=== PATIENT | male | born 1955 | race Caucasian/White ===

== ENCOUNTER 2024-12-18 21:01 | Observation (INO) ==
--- OUTSIDE RECORDS SUMMARY | 2024-12-18 21:07 | External Medical Summary | Summary of Care ---
Author Name Unknown Organization [facility] Address [address] [place] [address] Phone [phone] Care Team Providers Care Music Video Producer Name Role Phone Ran Mora MD Primary Care Provider Reason for Visit * Reason Comments Outpatient Testing Encounter Details Date Type Department Care Team (Late st Contact Info) Description 11/29/2024 8:00 AM EDT Laboratory Laboratory, [facility] [address] [place] [address] [facility] [address], [place] [id number] HTN, goal below 130/80 Allergies No known active allergiesdocumented as of this encounter (statuses as of 11/29/2024) Medications aspirin enteric coated 81 MG TBEC Take 1 Tablet by mouth in the morning. 9 Active Nitroglycerin 0.4 MG Sublingual Tablet Sublingual (Nitrostat)Indic ations:Angina pectoris (HCC) One tablet under tongue if needed for chest pain. May repeat 3 times. If chest pain continues, call [phone] Tab 11 1 Active Fluticasone Propionate 50 MCG/ACT Nasal Suspension Administer 1 [place] into nostril in the morning. Active Multivitamin Adult Extra C Oral Tablet Chewable Take by mouth . Acti ve Sildenafil Citrate 20 MG Oral Tablet (Revatio) 1-5 tabs no more than once in 24 hrs as needed for ED 60 Tablet 1 3 Active Famotidine 20 MG Oral Tablet (Pepcid) Take 1 Tablet by mouth in the morning and 1 Tablet before bedtime. Active Omeprazole 40 MG Oral Capsule Delayed Release (PriLOSEC)Indica tions:Gastroesop hageal reflux disease, unspecified whether esophagitis present TAKE ONE CAPSULE BY MOUTH EVERY DAY ONE HOUR BEFORE THE FIRST MEAL OF THE DAY 90 Capsule 3 09/06/2024 3:06 PM EST 4 03/05/20 25 Active amLODIPine Besylate 5 MG Oral Tablet (Norvasc)Indicat ions:HTN, goal below 140/90 TAKE 1 TABLET BY MOUTH EVERY DAY 90 Tablet 3 09/20/2024 7:12 AM EST 4 06/19/20 25 Active Rosuvastatin Calcium 40 MG Oral Tablet (Crestor)Indicat ions:HTN, goal below 130/80,Dyslipide susanna, goal LDL below 70 TAKE ONE TABLET BY MOUTH DAILY 90 Tablet 10/12/2024 7:12 AM EST 5 10/11/19 26 Active Lisinopril 40 MG Oral TabletIndication s:HTN, goal below 130/80 Take 1 Tablet by mouth in the morning. 90 Tablet 3 11/17/2024 1:24 PM EDT 5 Active Triamcinolone Acetonide 0.1 % External Cream (Aristocort)Leticia cations:Xerosis cutis,Contact dermatitis, unspecified contact dermatitis type, unspecified trigger Apply 2x daily to itchy/rash areas on legs when flaring- see printed regimen on checkout sheet 80 g 5 Active Ketoconazole 2 % External CreamIndications :Seborrheic dermatitis Apply 2x daily scalp and entire face until next derm appointment 60 g 2 5 Active hydroCHLOROthiaz christelle 25 MG Oral Tablet (Hydrodiuril)Ind ications:HTN, goal below 130/80 Take 0.5 Tablets by mouth in the morning. 5 Active Levothyroxine Sodium 100 MCG Oral Tablet (Levoxyl)Indicat ions:Hypothyroid ism due to acquired atrophy of thyroid TAKE 1 TABLET BY MOUTH DAILY AT LEAST 30 MINUTES PRIOR TO FIRST MEAL OF THE DAY OR OTHER MEDICATIONS 90 Tablet 3 5 11/29/19 26 Active documented as of this encounter (statuses as of 11/29/2024) Active Problems Problem Noted Date Diagnosed Date Dyslipidemia, goal LDL below 70 01/21/2022 Angina pectoris 01/21/2022 Gastroesophageal reflux disease 01/21/2022 Rotator cuff tear arthropathy of right shoulder 04/28/2019 Chronic right shoulder pain 04/28/2019 Hypomagnesemia 01/20/2019 Hypokalemia 01/20/2019 Stem cells transplant status 01/02/2019 Angioimmunoblastic lymphoma 12/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 History of lymphoma 01/19/2017 Chemotherapy management, encounter for 5 DLBCL (diffuse large B cell lymphoma) 07/20/2015 Cancer Staging:Clinical: Unsigned Pathologic:Stage II- Unsigned Hypothyroidism due to acquired atrophy of thyroi d 02/27/2015 Vitamin D deficiency 02/27/2015 Mild intermittent asthma, uncomplicated 10/17/19 14 Chronic ischemic heart disease 02/05/2009 S/P angioplasty with stent 02/02/2009 Sequela, post-stroke 05/01/2008 HTN, goal below 130/80 10/23/2005 documented as of this encounter (statuses as of 11/29/2024) Resolved Problems Problem Noted Date Diagnosed Date Resolved Date C. difficile diarrhea 01/19/20192021 Overview (07/10/2022): NOTED 01/19/19 HISTORICAL Antineoplastic chemotherapy induced pancytopenia 01/08/2019 07/17/2022 Dehydration 10/27/2018 07/10/2022 Overview (07/10/2022): NOTED 10/27/18 HISTORICAL RAFIQ (acute kidney injury) 10/27/2018 Overview (07/10/2022): NOTED 10/27/18 HISTORICAL Anxiety state 01/19/2017 08/05/2018 Hyperlipemia 12/22/2012 07/15/2013 Acute bronchitis, antibiotics not indicated 07/27/2009 01/16/2017 HYPOTHYROIDISM NOS 06/05/2009 5 EXAMINATION OF PARTICIPANT I N CLINICAL TRIAL-Genomics 02/02/2009 11/23/2009 Overview (11/23/2009): Renamed Per Clinical Trials Billing Project. Study Titile: Genomic Markers for Patients with Cardiovascular Disease Project #[id number] PI: Jennifer Huffman MD Please call [phone] with study related questions GENOMICS CARDIO RESEARCH OTHER*[id number] 02/02/2009 09/16/2016 Overview (11/23/2009): Renamed Per Clinical Trials Billing Project. Study Titile: Genomic Markers for Patients with Cardiovascular Disease Project #[id number] PI: Jennifer Huffman MD Please call [phone] with study related questions PAIN IN LIMB, LEFT HEEL 10/23/200504/2017 PERIAPICAL ABSCESS 07/12/2005 7 documented as of this encounter (statuses as of 11/29/2024) Immunizations Name Administration Dates Next Due COVID-19 mRNA, LNP-s, No Pre serve, 2-Dose Series (Opencare) 05/20/2021,10/29/2020,10/08/2020 Covid-19, Mrna, Lnp-s, Pf, B ivalent, 30 Mcg, IM, 12 yrs and above (Pfizer) 06/11/2022 DTaP Dipth/Tet/Acell Pertussis (Infanrix), Peds 09/04/2020,05/15/2020,01/23/2020 HIB PRP-T, 4 Dose, PF, IM (H iberix, ActHib) 09/04/2020,05/01/2020,01/23/2020 Hepatitis B, 20+ yrs 09/04/2020,05/01/2020,01/22 IPV - Polio Virus Vaccine (Inact) 01/28/2021,,01/23/2020 MMR - Measles/Mumps/Rubella Vaccine 01/28/2021 Meningococcal MCV4O Conjugat e Vaccine (Menveo) 05/01/2020,01/23/2020 Pneumococcal Conjugate Vacc, 13 Valent (Prevnar) 01/23/2020,09/07/2019,07/11/2019 Pneumococcal Polysaccharide PPV23 (Pneumovax) 09/04/2020,06/08/2015,01/24/2009 Seasonal Influenza Vac., MDV , IM, 0.5 mL (Fluzone) 05/03/2014,06/01/2013,08/31/2012,04/26,07/10/2008 Seasonal Influenza, High Dos e, Trivalent, PF, IM (Fluzone HD) 04/26/2024 Seasonal Influenza, PF, 6 M & above, IM , (FluLaval or Fluzone) 05/12/2023,06/06/2022,05/07/2021,05/01,05/01/2020(Deferred: Contraindication - Admiistered in a separate encounter by Bella Pugh LPN),07/11/2019,09/16/2017 09/16/2018 Seasonal Influenza, Quadriva lent, No Preserve, IM 07/18/2016,05/15/2015 TDAP, Age 7 and older, IM (Adacel) 10/14/2010 Zoster Vaccine Recombinant (Shingrix) 09/07/2019,07/11/2019,03/31/2018 documented as of this encounter Social History Tobacco Use Types Packs/Day Years Used Date Smoking Tobacco: Former Cigars Smokeless Tobacco: Current Snuff Comments:1 can every 2 days Alcohol Use Standard Drinks/Week Comments No 0 (1 standard drink = 0.6 oz pur e alcohol) AUDIT-C Answer Date Recorded Frequency of Alcohol Consumption Never 09/03/2018 Average Number of Drinks Not on file 019 Frequency of Binge Drinking Not on file 08/11 PHQ-2 Answer Date Recorded PHQ Adult Total Score 0 09/08/2024 Hunger Vital Sign Answer Date Recorded Within the past 12 months, y ou worried that your food would run out before you got the money to buy more. Never true 09/06/19 25 Within the past 12 months, t he food you bought just didn't last and you didn't have money to get more. Never true 09/06/2024 Childcare Answer Date Recorded Do you feel overwhelmed with taking care of a child, family member or friend? No 09/06/2024 Does your family need help f inding childcare? (Household - for ages 0-17 years) Not on file 09/06/2024 Clothing Answer Date Recorded Have you been unable to get clothing when it was really needed? No 09/06/2024 Is your family able to get c lothes or diapers when needed? (Household - for ages 0-17 years) Not on file 09/06/2024 Personal Safety Answer Date Recorded Do you feel unsafe or have concerns for your saf ety? No 09/06/2024 Do you have concerns for you r family's safety? (Household - for ages 0-17 years) Not on file 09/06/2024 Utilities Answer Date Recorded Do you have trouble paying y our heating, water, or electric bill? No 09/06/2024 Is your family able to pay t he heat, water, or electric bill? (Household - for ages 0-17 years) Not on file 09/06/2024 Does your family have access to good internet? (Household - for ages 0-17 years) Not on file 09/06/2024 Employment Status Answer Date Recorded Are you unemployed or without regular income? No 09/06/2024 Does the household have a re lar source of income? (Household - for ages 0-17 years) Not on file 09/06/2024 Social Connections Answer Date Recorded How often do you feel lonely or isolated from th ose around you? Never 09/06/2024 Financial Resource Strain Answer Date R ecorded Do you have any trouble payi ng for your medications, or do you think you might in the future? No 09/06/2024 Does your family have troubl e paying for medicine? (Household - for ages 0-17 years) Not on file 09/06/2024 Transportation Needs Answer Date Record ed Do you have trouble getting a ride to medical visits or work? (Adult - for ages 18 years and over) Not on file 09/06/2024 Does your family have a hard time getting a ride to doctors visits? (Household - for ages 0-17 years) Not on file 09/06/2024 Has lack of transportation k ept you from medical appointments, meetings, work, or from getting things needed for daily living? Check all that apply. No 09/06/2024 Do you (or your family) have trouble finding or paying for a ride (transportation)? (Household - for ages 0-17 years) Not on file 09/06/2024 Housing Stability Answer Date Recorded Do you currently live in a s helter or have no steady place to sleep at night? No 09/06/2024 Do you think you are at risk of becoming homeless? (Adult - for ages 18 years and over) Not on file 09/06/2024 Does your family worry about paying for your home or becoming homeless? (Household - for ages 0-17 years) Not on file 0 09/06/2024 Are you homeless or worried that you might be in the future? No 09/06/2024 Are you (or your family) henrik eless or worried that you might be in the future? (Household - for ages 0-17 years) Not on file Food Insecurity Answer Date Recorded Do you need food for this week? No 09/06/2024 Are you able to get enough f ood for your family? (Household - for ages 0-17 years) Not on file 09/06/2024 Does your family need food t his week? (Household - for ages 0-17 years) Not on file 09/06/2024 Do you always have enough fo od for your family? (Household - for ages 0-17 years) Not on file 09/06/2024 Food Insecurity Answer Date Recorded Within the past 12 months, y ou worried that your food would run out before you got the money to buy more. Never true 09/06/19 25 Within the past 12 months, t he food you bought just didn't last and you didn't have money to get more. Never true 09/06/2024 Do you need food for this week? 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 Answer Date of Assessment Author No 12/31/2018 10:10 AM Jackie Norton RN * Are you blind or do you have serious difficulty seeing, even when wearing glasses? Answer Date of Assessment Author No 12/31/2018 10:10 AM Jackie Norton RN * Do you have serious difficulty walking or climbing stairs? (5 years old or older) Answer Date of Assessment Author No 12/31/2018 10:10 AM Jackie Norton RN * Do you have difficulty dressing or bathing? (5 years old or older) Answer Date of Assessment Author No 12/31/2018 10:10 AM Jackie Norton RN * Because of a physical, mental, or emotional condition, do you have difficulty doing errands alone such as visiting a doctor’s office or shopping? (15 years old or older) Answer Date of Assessment Author No 12/31/2018 10:10 AM Jackie Norton RN documented as of this encounter Mental Status * Because of a physical, mental, or emotional condition, do you have serious difficulty concentrating, remembering, or making decisions? (5 years old or older) Answer Entry Date Author No 12/31/2018 10:10 AM Jackie Norton RN documented in this encounter Plan of Treatment Upcoming Encounters Date Type Department Care Team (Late st Contact Info) Description 05/24/2025 8:00 AM EDT Laboratory Laboratory, [facility] [address] [phone] [facility] [address] [address] 06/01/2025 2:00 PM EDT Office Visit Hematology/Oncology Rosa Elena Ar[place] [address] [place] [address] Maria Teresa Rizo CRNP [address] [place] [id number] Pending Results Name Type Priority Associated Diagnoses Date /Time BASIC METABOLIC PANEL Lab Routine HTN, goal below 130/80 11/29/2024 7:58 AM EDT Scheduled Procedures Name Priority Associated Diagnoses Date/Ti me COLONOSCOPY FLEXIBLE PROXIMA L DIAGNOSTIC Recall History of colonic polyps Health Maintenance Due Date Last Done Comments Cologuard 2002 Fecal Occult Blood Test 2002 Sigmoidoscopy 2002 Adult Wellness Visit 10/18/2023 COVID-19 Vaccine ( season) 2024 06/11/2022, 05/20/2021, 10/29/2020, Additional history exists *NEPHROLOGY REFERRAL DUE TO RESISTANT HTN 11/17/2024 TSH 06/09/2025 06/09/2024, 04/10, 04/21/2022, Additional history exists Pneumococcal Vaccine: 50+ Years (4 of 4 - PCV20 or PCV21) 09/04/2025 09/04/2020, 01/23/2020, 09/07/2019, Additional history exists Depression Screening 09/08/2025 09/08/2024 GFR 10/12/2025 10/12/2024, 05/10, 11/09/2023, Additional history exists Albumin/Creatinine Ratio 12/11/2025 023, 03/31/2018, 09/16/2017 Diabetes Screening 10/13/2027 10/12/2024, 1 , 11/09/2023, Additional history exists Colonoscopy 09/02/2028 09/02/2023, 08/11, 06/18/2018, Additional history exists Colorectal Cancer Screening 09/02/2028 DTap/Tdap Vaccines (5 - Td or Tdap) 09/04/2030 09/04/2020, 05/15/2020, 01/23/2020, Additional history exists Zoster Vaccines Completed 09/07/2019, 12/09/2018, 03/31/2018 MENINGOCOCCAL (MENACTRA/MENVEO) Aged Out 05/01/2020, 05/01/2020, 01/23/2020, Additional history exists No longer eligible based on patient's age to complete this topic Hepatitis B Vaccine Completed 09/04/2020, 05/01/2020, 01/23/2020 RETIRED - COLONOSCOPY-EVERY 5 YRS AGES 18-100 Discontinued 09/02/2023, 09/02/2023, 06/18/2018, Additional history exists AAA Screening Completed 11/09/2023, 03/2019, 11/07/2015, Additional history exists HPV (Gardasil) Vaccine Aged Out No lo nger eligible based on patient's age to complete this topic Meningitis B Vaccine (Bexsero/Trumemba) Aged Out No longer eligible based on patient's age to complete this topic documented as of this encounter Medical Devices Implanted Type Area Thermospray Operator Device Identifier Shelf Expiration Date Model / Serial / Lot Bard Mesh Perfix Plug Large Implanted:Qty : 1 on 04/24/2014 at OR [facility] Left: Groin 06/09/2014 [id number] / / [id number] Port Power Mri W/8fr Cath - [id number] Implanted:Qty : 1 on 07/30/2015 by Martell Osuna MD at OR [facility] Right: Internal Jugular CR BARD : PERIPHERAL VASCULAR 02/04/2017 [id number] / / [id number] documented as of this encounter Visit Diagnoses Diagnosis HTN, goal below 130/80 Unspecified essential hypertension documented in this encounter Advance Directives * Full Code (Latest Code Status on File) Date Activated Date Inactivated Comments 12/31/2018 11:18 AM 01/19/2019 3:40 PM This order reflects the patients wishes and were consensually agreed upon. Question Answer Comments Discussion of Advance Directives occurred with: Patient Does the patient have a Living Will? No Does the patient have Health Care Power of Attor rico? No * Full Code Date Activated Date Inactivated Comments 11/01/2018 9:04 AM 11/05/2018 5:14 PM This order r eflects the patients wishes and were consensually agreed upon. Question Answer Comments Discussion of Advance Directives occurred with: Patient Does the patient have a Living Will? No Does the patient have Health Care Power of Attor rico? No * Full Code Date Activated Date Inactivated Comments 10/11/2018 5:51 PM 10/16/2018 12:52 PM This order re flects the patients wishes and were consensually agreed upon. Question Answer Comments Discussion of Advance Directives occurred with: Not Discussed Does the patient have a Living Will? Yes, not cu rrently available Does the patient have Health Care Power of Quality Systems Manager? Yes, not currently available * Full Code Date Activated Date Inactivated Comments 10/11/2018 5:49 PM 10/11/2018 5:51 PM This order ref lects the patients wishes and were consensually agreed upon. Question Answer Comments Discussion of Advance Directives occurred with: Not Discussed Does the patient have a Living Will? Yes, not cu rrently available Does the patient have Health Care Power of Quality Systems Manager? Yes, not currently available * Full Code Date Activated Date Inactivated Comments 02/02/2009 12:35 PM 02/03/2009 8:43 AM This order reflects the patients wishes and were consensually agreed upon. Question Answer Comments Discussion of Advance Directives occurred with: Not Discussed Does the patient have a Living Will? No Does the patient have Health Care Power of Attor rico? No Care Teams Music Video Producer Relationship Specialty Start Date End Date Ran Mora MD [address] [facility] [address] [place] [address] PCP - General 02/18/05 documented as of this encounter
--- OUTSIDE RECORDS SUMMARY | 2024-12-18 21:07 | External Medical Summary | Summary of Care ---
Author Name Unknown Organization [facility] Address [address] [place] [address] Phone [phone] Care Team Providers Care Basketball Coach Name Role Phone Ran Mora MD Primary Care Provider [phone] Encounter Details Date Type Department Care Team (Latest Contact Info) Description 11/24/2024 8:15 AM EDT - 11/24/2024 11:59 PM EDT Hospital Encounter Radiology Film File [address] [place] [address] Arrived Discharge Disposition: Home - Self Care Allergies No known active allergiesdocumented as of this encounter (statuses as of 11/25/2024) Medications aspirin enteric coated 81 MG TBEC Take 1 Tablet by mouth in the morning. 9 Active Nitroglycerin 0.4 MG Sublingual Tablet Sublingual (Nitrostat)Indic ations:Angina pectoris (HCC) One tablet under tongue if needed for chest pain. May repeat 3 times. If chest pain continues, call [phone] Tab 11 1 Active Fluticasone Propionate 50 MCG/ACT Nasal Suspension Administer 1 [place] into nostril in the morning. Active Multivitamin [...] 7:12 AM EST 4 06/19/20 25 Active Levothyroxine Sodium 100 MCG Oral Tablet (Levoxyl)Indicat ions:Hypothyroid ism due to acquired atrophy of thyroid TAKE 1 TABLET BY MOUTH DAILY AT LEAST 30 MINUTES PRIOR TO FIRST MEAL OF THE DAY OR OTHER MEDICATIONS 90 Tablet 09/06/2024 3:06 PM EST 5 09/01/19 26 Active Rosuvastatin Calcium 40 MG Oral Tablet [...] by mouth in the morning. 5 Active documented as of this encounter (statuses as of 11/25/2024) Active Problems Problem Noted Date Diagnosed Date [...] as of this encounter (statuses as of 11/25/2024) Resolved Problems Problem Noted Date Diagnosed Date [...] Markers for Patients with Cardiovascular Disease Project #[id number] PI: Jennifer Huffman MD Please call [phone] with study related questions GENOMICS CARDIO RESEARCH OTHER*[id number] 02/02/2009 09/16/2016 Overview (11/23/2009): Renamed Per Clinical Trials Billing Project. Study Titile: Genomic Markers for Patients with Cardiovascular Disease Project #[id number] PI: Jennfier Huffman MD Please call [phone] with study related questions PAIN IN LIMB, LEFT HEEL 10/23/200504/2017 PERIAPICAL ABSCESS 07/12/2005 7 documented as of this encounter (statuses as of 11/25/2024) Immunizations Name Administration Dates Next Due COVID-19 mRNA, LNP-s, No Pre serve, 2-Dose Series (Musicshake) 05/20/2021,10/29/2020,10/08/2020 Covid-19, Mrna, Lnp-s, Pf, B ivalent, [...] No 09/06/2024 Does the household have a [facility] source of income? 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 Answer Date of Assessment Author No 12/31/2018 10:10 AM EDT Jackie Lloyd, CRIS * Are you blind or do you [...] Info) Description 11/29/2024 8:00 AM EDT Laboratory [facility] [address] [phone] Ariana Perez [address] [address] 05/24/2025 8:00 AM EDT [facility] [address] [phone] [facility] [address] [address] 06/01/2025 2:00 PM EDT [facility] [place] [address] [facility] [phone] Maria Teresa Rizo CRNP [address] [place] [address] [place] [place] [address] Scheduled Procedures Name Priority Associated Diagnoses Date/Ti [...] Additional history exists Zoster Vaccines Completed 09/07/2019, 09/2018, 03/31/2018 MENINGOCOCCAL (MENACTRA/MENVEO) Aged Out 05/01/2020, 05/01/2020, [...] this encounter Medical Devices Implanted Type Area Catalytic Case Operator Device Identifier Shelf Expiration Date Model / Serial / Lot Bard Mesh Perfix Plug Large Implanted:Qty : 1 on 04/24/2014 at OR [facility] Left: Groin 06/09/2014 [id number] / / [id number] Port Power Mri W/8fr Cath - [id number] Implanted:Qty : 1 on 07/30/2015 by Martell Osuna MD at OR [facility] Right: Internal Jugular CR BARD : PERIPHERAL VASCULAR 02/04/2017 [id number] / / [id number] documented as of this encounter Procedures Procedure Name Priority Date/Time Associated Diagnosis Comments DERM EXAM - DERM (IMAGES ONLY, NO REPORT) Routine 11/24/2024 8:15 AM EDT Seborrheic dermatitis Xerosis cutis Contact dermatitis, unspecified contact dermatitis type, unspecified trigger Rosacea documented in this encounter Results * DERM EXAM - DERM (IMAGES ONLY, NO REPORT) (11/24/2024 8:15 AM EDT) Narrative 11/24/2024 8:15 AM EDT This is an imaging study not interpreted or resulted by a [employer] or [employer] contracted radiologist. Yi Montes De Oca PA-C RADIOLOGY (RAD GENERAL ) Final Result documented in this encounter Advance Directives * [...] the patient have Health Care Power of Special Events Manager? Yes, not currently available * Full Code Date Activated Date Inactivated Comments 10/11/2018 5:49 PM 10/11/2018 5:51 PM This order ref lects the patients wishes and were consensually agreed upon. Question Answer Comments Discussion of Advance Directives occurred with: Not Discussed Does the patient have a Living Will? Yes, not cu rrently available Does the patient have Health Care Power of Special Events Manager? Yes, not currently available * Full Code Date Activated Date Inactivated Comments 02/02/2009 12:35 PM 02/03/2009 8:43 AM This order reflects the patients wishes and were consensually agreed upon. Question Answer Comments Discussion of Advance Directives occurred with: Not Discussed Does the patient have a Living Will? No Does the patient have Health Care Power of Attor rico? No Care Teams Basketball Coach Relationship Specialty Start Date End Date Ran Mora MD [address] [facility] [place] [address] PCP - General 02/18/05 documented as of this encounter
--- OUTSIDE RECORDS SUMMARY | 2024-12-18 21:07 | External Medical Summary | Summary of Care ---
Author Name Unknown Organization [facility] Address [address] [place] [address] Phone [phone] Care Team Providers Care Bias Cutting Machine Operator Name Role Phone Ran Mora MD Primary Care Provider [phone] Reason for Visit * Reason Comments NEW PATIENT New pt. Here for ros acea and spots on back of both legs. Pt states that metrogel is no longer working for the rosacea. * Evaluate & Treat - Unlimited Visits (Within 30 days (routine)) - Authorized Specialty Diagnoses / Procedures Referred By Contgisele t Referred To Contact Dermatology Diagnoses Ran Ospina MD Phone: tel: fax: Yi Montes De Oca PA-C [address] [place] [address] Phone: tel: fax: Referral ID Status Reason Start Date Expiration Date Visits Requested Visits Authorized [id number] Authorized Specialty Services Required 05/09/2024 [id number] Encounter Details Date Type Department Care Team (Late st Contact Info) Description 11/24/2024 8:00 AM EDT [facility] [address] [place] [phone] Yi Montes De Oca PA-C [address] [place] [address] [place] [address] Rosacea*; Seborrheic dermatitis; Xerosis cutis; Contact dermatitis, unspecified contact dermatitis type, unspecified trigger Allergies No known active allergiesdocumented as of this encounter (statuses as of 11/24/2024) Medications aspirin enteric coated 81 MG TBEC Take 1 Tablet by mouth in the morning. 04/22/20 19 Active Nitroglycerin 0.4 MG Sublingual Tablet Sublingual (Nitrostat)Leticia cations:Angina pectoris (HCC) One tablet under tongue if needed for chest pain. May repeat 3 times. If chest pain continues, call [phone] Tab 11 01/25/20 21 Active Fluticasone Propionate 50 MCG/ACT Nasal Suspension Administer 1 [place] into nostril in the morning. Active Multivitamin Adult Extra C Oral Tablet Chewable Take by mouth . Active Sildenafil Citrate 20 MG Oral Tablet (Revatio) 1-5 tabs no more than once in 24 hrs as needed for ED 60 Tablet 1 10/03/19 23 Active Famotidine 20 MG Oral Tablet (Pepcid) Take 1 Tablet by mouth in the morning and 1 Tablet before bedtime. Active Omeprazole 40 MG Oral Capsule Delayed Release (PriLOSEC)Indic ations:Gastroes ophageal reflux disease, unspecified whether esophagitis present TAKE ONE CAPSULE BY MOUTH EVERY DAY ONE HOUR BEFORE THE FIRST MEAL OF THE DAY 90 Capsule 3 5 3:06 PM EST 03/05/20 24 025 Active amLODIPine Besylate 5 MG Oral Tablet (Norvasc)Indica tions:HTN, goal below 140/90 TAKE 1 TABLET BY MOUTH EVERY DAY 90 Tablet 3 5 7:12 AM EST 06/19/20 24 025 Active Levothyroxine Sodium 100 MCG Oral Tablet (Levoxyl)Indica tions:Hypothyro idism due to acquired atrophy of thyroid TAKE 1 TABLET BY MOUTH DAILY AT LEAST 30 MINUTES PRIOR TO FIRST MEAL OF THE DAY OR OTHER MEDICATIONS 90 Tablet 5 3:06 PM EST 09/01/19 25 026 Active Rosuvastatin Calcium 40 MG Oral Tablet (Crestor)Indica tions:HTN, goal below 130/80,Dyslipid emia, goal LDL below 70 TAKE ONE TABLET BY MOUTH DAILY 90 Tablet 5 7:12 AM EST 10/11/19 25 026 Active Lisinopril 40 MG Oral TabletIndicatio ns:HTN, goal below 130/80 Take 1 Tablet by mouth in the morning. 90 Tablet 3 5 1:24 PM EDT 11/16/19 25 Active Triamcinolone Acetonide 0.1 % External Cream (Aristocort)Ind ications:Xerosi s cutis,Contact dermatitis, unspecified contact dermatitis type, unspecified trigger Apply 2x daily to itchy/rash areas on legs when flaring- see printed regimen on checkout sheet 80 g 11/25/19 25 Active Ketoconazole 2 % External CreamIndication s:Seborrheic dermatitis Apply 2x daily scalp and entire face until next derm appointment 60 g 2 11/25/19 25 Active hydroCHLOROthia zide 25 MG Oral Tablet (Hydrodiuril)In dications:HTN, goal below 130/80 Take 1 Tablet by mouth in the morning. 90 Tablet 3 5 1:24 PM EDT 11/16/19 25 025 Discontinued documented as of this encounter (statuses as of 11/24/2024) Active Problems Problem Noted Date Diagnosed Date [...] as of this encounter (statuses as of 11/24/2024) Resolved Problems Problem Noted Date Diagnosed Date [...] Markers for Patients with Cardiovascular Disease Project #[id number] PI: Jennifer Huffman MD Please call [phone] with study related questions GENOMICS CARDIO RESEARCH OTHER*[id number] 02/02/2009 09/16/2016 Overview (11/23/2009): Renamed Per Clinical Trials Billing Project. Study Titile: Genomic Markers for Patients with Cardiovascular Disease Project #[id number] PI: Jennifer Huffman MD Please call [phone] with study related questions PAIN IN LIMB, LEFT HEEL 10/23/2005 06/0 04/2017 PERIAPICAL ABSCESS 07/12/2005 7 documented as of this encounter (statuses as of 11/24/2024) Immunizations Name Administration Dates Next Due COVID-19 mRNA, LNP-s, No Pre serve, 2-Dose Series (Pfizer) 05/20/2021,10/29/2020,10/08/2020 Covid-19, Mrna, Lnp-s, Pf, B ivalent, [...] Influenza, Quadriva lent, No Preserve, IM 07/18/2016,05/15/2015 TD - Tetanus/Diptheria (ADULT) 04/11/2005 TDAP, Age 7 and older, IM (Adacel) [...] 09/06/2024 Does the household have a re gular source of income? 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 Do not use the soap on rash spots, only irritates them more. Use soap over entire body 1-2 times per week, wash underarms and private parts daily. 2) Use TRIAMCINOLONE 0.1% CREAM (to itchy, irritated) to affected areas only as directed by Yi GAMBINO PA-C and/or written on the prescription. Stop using the topical steroid medication once the rashy skin feels like normal skin. The rednesswill start to improve over next few months. Prolonged use of a steroid ointment/cream/lotion/solution can result in: telangiectasias (broken blood vessels), striae (stretch maier), atrophy (thin skin, especially in the skin folds), purpura (bruising), allergic contact dermatitis, cataracts, suppression of the body’s ability to create its own cortisol, weight gain, poor height growth, and high blood sugar. Acne like eruptions, bacterial/fungal infections, and steroid therapy addiction discussed with patient from manager intermediate (greater than 2-4 weeks continuous use) Our plan will always be to use the lowest potency possible and to use a regimen that employs intermittent rather than constant use of topical steroids. 3) CeraVe cream (in white jar)-[employer] (CHEAPEST), [facility] (has generic brand--$2-4 cheaper might have other ingredients, would not use if we are treating an allergy rash), [facility], [facility]) to be applied on top of affected area(s) MORNING AND EVENING, and entire body at least DAILY. 4) Vaseline (petroleum jelly) to be applied on top of the cerave cream at BEDTIME to affected area(s) only (warned to wear old pajamas to bed due to messiness of procedure). If bad areas are on handsand/or feet, then cover them with brown jersey gloves (cheaper than white cotton gloves)-buy at [employer]. Purchase a chlorine filtered shower head-will cut down on dryness of skin, dandruff of scalp/face(if an issue for you), and could help with breathing/respiratory issues. QUESTIONS? Call Dermatology at during normal business hours or for an emergency, call [phone] and ask to speak to the resident process control operator. SUNSCREEN USE AND SUN PROTECTION: 1. The best protection is sun avoidance. Seek shade if you can, especially between 10am to 4pm (peak sun hours). 2. Use sunscreen with an SPF (Sun Protection Factor - the number on most sunscreen bottles) of 30 or more that protects from Ultraviolet A (UVA) and Ultraviolet B (UVB) wavelength light (strongly recommend SPF 50). This is referred to as broad spectrum sun protection because it protects from most wa velengths in both spectrums of UVA and UVB light. Unfortunately, even though the protection is broad it is not complete, therefore making sun avoidance the best protection. UVB and UVA have both beenimplicated in causing skin cancers. Older sunscreens only protected from UVB and sunscreens with added UVA protection should contain Titanium dioxide, Zinc oxide, or Avobenzone. Other oil free, non-comedogenic lotion with SPF 30 or greater is fine. 3. Use sun protection if outside for 15 minutes or more. Apply 20-30 minutes before going out and reapply every 1-2 hours. No sunscreen is truly water ''proof'' and it will wash away with sweat, swimming and rubbing. 4. Wear tightly woven, loose fitting (cooler) long sleeved clothing, UV-blocking sun glasses (eyes need protection as well) and wide-brimmed hatwear (no straw hats with holes because light still getsthrough). Strongly recommended *Neutrogena Pure and Free Baby SPF 60 (have separate face and body lotions) orCeraVe AM facial lotion (with SPF 30). If looking for non toxic alternatives-look for non-boaz particle zinc. Product examples; Think sport, Think baby, Alejo, Babo botanicals, [place]ba botanicals, [place] baby. "Baby" products can be used for all ages. documented in this encounter Progress Notes * Donny Maier MD - 11/24/2024 2:53 PM EDT I have seen and examined the patient via teledermatology review of chart note and photos with Yi Montes De Oca PA-C. I have reviewed and agree with the assessment and plan. * Yi Montes De Oca PA-C - 11/24/2024 8:00 AM EDT SUBJECTIVE: HPI: Wyatt Aviles is a 69 year old male seen at the request of Ran Mora MD for evaluation andtreatment of rosacea and lesions. Rosacea, diagnosed by pcp and has been using Metrogel 1% (used as it was flaring) but does not feelthat it is as helpful to control flaring. Does not itch, burn, sting when flaring. Only tends to look more red at times but does not know of any triggers. Eyes are not dry and gritty. Never gets inflammatory papules with redness. Sister with rosacea. Areas on legs, itchy and irritated at times, gets more red with hot water in shower. REVIEW OF SYSTEMS: SKIN: No other new or changing moles. HEME/LYMPH: No new or enlarging lumps or bumps. CONSTITUTIONAL: No nausea, vomiting, fevers, chills, diarrhea. No recent unintended weight loss, night sweats, appetite or malaise. RESP: negative MSK/EXT: Negative or as per HPI GI: negative CV: Negative or as per HPI Rest of systems are negative or as per HPI SKIN CANCER HX: NONE Reviewed, same day as visit, 1 [facility] Dermatology lab work(s)/pathology report(s) as well as those sent by referring provider prior to seeing pt. Past Medical History: Diagnosis Date RAFIQ (acute kidney injury) ([facility]) 10/27/2018 NOTED 10/27/18 HISTORICAL Anxiety state 01/19/2017 Asthma, mild intermittent 10/16/2013 C. difficile diarrhea 01/19/2019 NOTED 01/19/19 HISTORICAL Cerebrovascular event, ill-defined, within last 8 weeks 08/14 left sided paralysis - nearly completely resolved/ TPA Chronic ischemic heart disease 02/05/2009 Dehydration 10/27/2018 NOTED 10/27/18 HISTORICAL DLBCL (diffuse large B cell lymphoma) ([facility]) 07/20/2015 HTN, goal below 130/80 10/23/2005 HTN, goal below 140/90 Hypothyroidism due to acquired atrophy of thyroid 02/27/2015 S/P angioplasty with stent 02/02/2009 FAMILY HISTORY: Skin CA: None Skin Disorders: none SOCIAL HISTORY: Social History Tobacco Use Smoking status: Former Types: Cigars Smokeless tobacco: Current Types: Snuff Tobacco comments: 1 can every 2 days Substance Use Topics Alcohol use: No Vaping/E-Cigarette Use Vaping/E-Cigarette Use Never Assessed Vaping/E-Cigarette Substances Vaping/E-Cigarette Devices MEDICA TIONS: Current Outpatient Medications Medication Sig Dispense Refill aspirin enteric coated 81 MG TBEC Take 1 Tablet by mouth in the morning. Nitroglycerin 0.4 MG Sublingual Tablet Sublingual (Nitrostat) One tablet under tongue if needed forchest pain. May repeat 3 times. If chest pain continues, call 911 25 Tab 11 Fluticasone Propionate 50 MCG/ACT Nasal Suspension Administer 1 [place] into nostril in the morning. Multivitamin Adult Extra C Oral Tablet Chewable Take by mouth . Sildenafil Citrate 20 MG Oral Tablet (Revatio) 1-5 tabs no more than once in 24 hrs as needed for ED 60 Tablet 1 Famotidine 20 MG Oral Tablet (Pepcid) Take 1 Tablet by mouth in the morning and 1 Tablet before bedtime. Omeprazole 40 MG Oral Capsule Delayed Release (PriLOSEC) TAKE ONE CAPSULE BY MOUTH EVERY DAY ONE HOUR BEFORE THE FIRST MEAL OF THE DAY 90 Capsule 3 amLODIPine Besylate 5 MG Oral Tablet (Norvasc) TAKE 1 TABLET BY MOUTH EVERY DAY 90 Tablet 3 Levothyroxine Sodium 100 MCG Oral Tablet (Levoxyl) TAKE 1 TABLET BY MOUTH DAILY AT LEAST 30 MINUTESPRIOR TO FIRST MEAL OF THE DAY OR OTHER MEDICATIONS 90 Tablet 0 Rosuvastatin Calcium 40 MG Oral Tablet (Crestor) TAKE ONE TABLET BY MOUTH DAILY 90 Tablet 0 Lisinopril 40 MG Oral Tablet Take 1 Tablet by mouth in the morning. 90 Tablet 3 hydroCHLOROthiazide 25 MG Oral Tablet (Hydrodiuril) Take 1 Tablet by mouth in the morning. 90 Tablet 3 Triamcinolone Acetonide 0.1 % External Cream (Aristocort) Apply 2x daily to itchy/rash areas on legs when flaring- see printed regimen on checkout sheet 80 g 0 Ketoconazole 2 % External Cream Apply 2x daily scalp and entire face until next derm appointment 60g 2 No current facility-administered medications for this visit. ALLERGY: Patient has no known allergies. OBJECT DANIAL: GEN: alert, no distress, appears oriented, pleasant, and cooperative. SKIN: Detailed exam of hair, face including lids and lips, neck, chest, abdomen, back, bilateral upper ext. (arm, hand, fingers), and palpation of scalp, posterior calvescompleted: 1. Scalp/eyebrows/nasolabial folds-[place] white scale on pink base. 2. Posterior calves-Xerosis with scale and faint pink patches with excoriation. 3. Central xyov-Mbrm-npmpdxyyho erythematous base and matted telangiectasias. ASSESS MENT/PLAN: [place] derm on scalp/eyebrows/nasolabial folds-Ketoconazole 2% cream BID Xerosis with irritant contact dermatitis on posterior calves-Start hydration regimen and triamcinolone 0.1% cream BID prn for itch/rash -Side effects of medication discussed and treatment regimen written and printed on checkout sheet. 3. E-T rosacea (bx proven in 2011)-Discussed need for sunscreen SPF 30-50+ daily with reapplicationand will consider lower dose of metrogel 0.75% BID or finacea gel BID at next visit if would like to try something different since metrogel 1% seems too drying for pt, even prn for flaring. Patient alone today. Photo(s) of #1-3 taken, pt verbally consented to having photo(s) taken. Follow-up: 3 months for rosacea/[place] derm/xerosis/dermatitis Photos and chart reviewed by Dr. Donny Maier. Presum ed diagnoses, expected natural histories, and management options discussed with the patient at length. Questions were addressed and anticipatory guidance provided. They were instructed to contact me (via [place] number and have a message sent to me from the senior power scheduler that answers or through their [employer] patient portal) if additional questions, concerns, or problems develop in the interim. If I deemed them a priority patient (and would have told them that at the end of the visit, ex: melanoma hx, transplant hx), then I told them that if they do not get scheduled for a follow up appointment in the appropriate time that we discussed, for them to follow the above instructions to make sure that we find a place for them on the schedule separately). -There were no barriers to learning and no other pain was related to today's visit. The patient and/or person accompanying patient demonstrates understanding of the visit and treatment. Yi Montes De Oca PA-C 11/24/2024 8:21 AM Dermatology, [address] [place] [phone] documented in this encounter Nursing Notes * Stella Mitchell LPN - 11/24/2024 7:47 AM EDT Patient identified by full name and date of Chief Complaint Patient presents with NEW PATIENT New pt. Here for rosacea and spots on back of both legs. Pt states that metrogel is no longer working for the rosacea. documented in this encounter Plan of Treatment Upcoming Encounters Date Type Department Care Team (Late st Contact Info) Description 11/29/2024 8:00 AM EDT Laboratory Laboratory, [address] [place] [address] [facility] [place] [address] 05/24/2025 8:00 AM EDT Laboratory Laboratory, [address] [place] [address] [facility] [place] [address] 06/01/2025 2:00 PM EDT Office Visit Hematology/Oncology Rosa Elena Arre[place] [address] [facility] [phone] Maria Teresa Rizo CRNP [address] [place] [address] Scheduled Procedures Name Priority Associated Diagnoses Date/Ti [...] Additional history exists Zoster Vaccines Completed 09/07/2019, 1209/2018, 03/31/2018 MENINGOCOCCAL (MENACTRA/MENVEO) Aged Out 05/01/2020, 05/01/2020, [...] this encounter Medical Devices Implanted Type Area Utilization Management Nurse Device Identifier Shelf Expiration Date Model / Serial / Lot Bard Mesh Perfix Plug Large Implanted:Qty : 1 on 04/24/2014 at OR [facility] Left: Groin 06/09/2014 [id number] / / [id number] Port Power Mri W/8fr Cath - [id number] Implanted:Qty : 1 on 07/30/2015 by Martell Osuna MD at OR [facility] Right: Internal Jugular CR BARD : PERIPHERAL VASCULAR 02/04/2017 [id number] / / [id number] documented as of this encounter Procedures Procedure [...] study not interpreted or resulted by a [employer] or [employer] contracted radiologist. Yi Montes De Oca PA-C RADIOLOGY ([facility] ) Final Result documented in this encounter Visit Diagnoses Diagnosis Rosacea- Primary Seborrheic dermatitis Seborrheic dermatitis, unspecified Xerosis cutis Other specified disease of sebaceous glands Contact dermatitis, unspecified contact dermatitis type, unspecified trigger documented in this encounter Advance Directives * [...] the patient have Health Care Power of Hot Bread Baker? Yes, not currently available * Full Code Date Activated Date Inactivated Comments 10/11/2018 5:49 PM 10/11/2018 5:51 PM This order ref lects the patients wishes and were consensually agreed upon. Question Answer Comments Discussion of Advance Directives occurred with: Not Discussed Does the patient have a Living Will? Yes, not cu rrently available Does the patient have Health Care Power of Hot Bread Baker? Yes, not currently available * Full Code Date Activated Date Inactivated Comments 02/02/2009 12:35 PM 02/03/2009 8:43 AM This order reflects the patients wishes and were consensually agreed upon. Question Answer Comments Discussion of Advance Directives occurred with: Not Discussed Does the patient have a Living Will? No Does the patient have Health Care Power of Attor rico? No Care Teams Bias Cutting Machine Operator Relationship Specialty Start Date End Date Ran Mora MD [address] [place] [address] PCP - General 02/18/05 documented as of this encounter
--- OUTSIDE RECORDS SUMMARY | 2024-12-18 21:07 | External Medical Summary ---
Author Name Unknown Address Unknown Organization K01:[facility] [address] [place] [address] Laboratory Report Ordering Provider Test Date Status EDER UMANA 11/29/2024 07:58:42 Final Observation Date Value Abnormality Reference (Units ) Status BUN 11/29/2024 07:58:42 28 Above high normal 6-20 (mg/dL) Final Creatinine 11/29/2024 07:58:42 1.1 0.6-1.2 (mg/dL) Final Glomerular filtration rate/1.73 sq M.predicted [Volume Rate/Area] in Serum, Plasma or Blood by Creatinine-based formula (CKD-EPI) 11/29/2024 07:58:42 71 >=60 (mL/min) Final eGFR is calculated based on the CKD-EPI 2020 equation. Sodium 11/29/2024 07:58:42 141 135-146 (m mol/L) Final Potassium 11/29/2024 07:58:42 4.3 3.5-5.1 (m mol/L) Final Cl 11/29/2024 07:58:42 104 98-107 (mm ol/L) Final CO2 11/29/2024 07:58:42 26 22-32 (mmo l/L) Final Anion gap 11/29/2024 07:58:42 11 7-15 (mmol /L) Final Glucose 11/29/2024 07:58:42 103 70-120 (mg /dL) Final Calcium 11/29/2024 07:58:42 9.6 8.4-10.2 ( mg/dL) Final Performing Location [facility] [address] [place] [address]
--- OUTSIDE RECORDS SUMMARY | 2024-12-18 21:07 | External Medical Summary | Summary of Care ---
Author Name Unknown Organization [facility] Address [address] [place] [address] Phone [phone] Care Team Providers Care Jalousie Installer Name Role Phone Ran Mora MD Primary Care Provider [phone] Reason for Visit * Reason Onset Date Comments Health Maintenance 12/16/2024 Encounter Details Date Type Department Care Team (Late st Contact Info) Description 12/16/2024 Telephone [facility] [address] [place] [address] Ran Mora MD [address] [place] [address] Health Maintenance Allergies No known active allergiesdocumented as of this encounter (statuses as of 12/16/2024) Medications aspirin enteric coated 81 MG TBEC Take 1 Tablet by mouth in the morning. 9 Active Nitroglycerin 0.4 MG Sublingual Tablet Sublingual (Nitrostat)Indic ations:Angina pectoris (HCC) One tablet under tongue if needed for chest pain. May repeat 3 times. If chest pain continues, call [phone] Tab 11 1 Active Fluticasone Propionate 50 MCG/ACT Nasal Suspension Administer 1 [place] into nostril in the morning. Active Multivitamin [...] MEAL OF THE DAY 90 Capsule 3 12/01/2024 1:01 PM EDT 4 03/05/20 25 Active amLODIPine Besylate 5 [...] DAY OR OTHER MEDICATIONS 90 Tablet 3 12/01/2024 1:01 PM EDT 5 11/29/19 26 Active documented as of this encounter (statuses as of 12/16/2024) Active Problems Problem Noted Date Diagnosed Date [...] as of this encounter (statuses as of 12/16/2024) Resolved Problems Problem Noted Date Diagnosed Date [...] Markers for Patients with Cardiovascular Disease Project #[id number] PI: Jennifer Huffman MD Please call [phone] with study related questions GENOMICS CARDIO RESEARCH OTHER*[id number] 02/02/2009 09/16/2016 Overview (11/23/2009): Renamed Per Clinical Trials Billing Project. 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 Not on file Not [...] Jackie Norton RN documented in this encounter Miscellaneous Notes * Telephone Encounter - Ana M Morejon LPN - 12/16/2024 11:59 AM EDT Care Gaps Comprehensive Care Outreach Last Office/Telemedicine Visit: 09/08/2024 (in office), Visit date not found (telemedicine) Next Office Visit: Visit date not found Hemoglobin AIC Results: Lab Results Component Value Date/Time HEMOGLOBIN A1C - [facility] 5.6 02/02/2009 09:38 AM BP Readings from Last 1 Encounters: 11/15/24 144/82 Reviewed Health Maintenance below: Health Maintenance Topic Date Due Adult Wellness Visit Never done COVID-19 Vaccine ( season) 2024 TSH 06/09/2025 Ov Lab oct awv Care Gap Outreach Action Taken: Left message documented in this encounter Plan of Treatment Upcoming Encounters Date Type Department Care Team (Late st Contact Info) Description 02/23/2025 2:40 PM EDT Office Visit Dermatology, [address] [place] [address] Yi Montes De Oca PA-C [address] [place] [address] [place] [id number] 05/24/2025 8:00 AM EDT Laboratory Laboratory, Ana [address] [place] [address] Ana, Laboratory [address] [place], [place] [id number] 06/01/2025 2:00 PM EDT Office Visit [facility] [place] [address] [facility] [address] Maria Teresa Rizo CRNP [address] [facility] [place] [address] Scheduled Procedures Name Priority Associated Diagnoses Date/Ti me COLONOSCOPY FLEXIBLE PROXIMA L DIAGNOSTIC Recall History of colonic polyps Health Maintenance Due Date Last Done Comments Cologuard 2002 Fecal Occult Blood Test 2002 Sigmoidoscopy 2002 Adult Wellness Visit 10/18/2023 COVID-19 Vaccine ( season) 2024 06/11/2022, 05/20/2021, 10/29/2020, Additional history exists TSH 06/09/2025 06/09/2024, 04/10, 04/21/2022, Additional history exists Pneumococcal Vaccine: 50+ Years (4 of 4 - PCV20 or PCV21) 09/04/2025 09/04/2020, 01/23/2020, 09/07/2019, Additional history exists Depression Screening 09/08/2025 09/08/2024 GFR 11/29/2025 11/29/2024, 03/0 12/2024, 05/24/2024, Additional history exists Albumin/Creatinine Ratio 12/11/2025 023, 03/31/2018, 09/16/2017 Diabetes Screening 11/30/2027 11/29/2024, 0 10/12/2024, 05/24/2024, Additional history exists Colonoscopy 09/02/2028 09/02/2023, 08/11, [...] Completed 11/09/2023, 03/2019, 11/07/2015, Additional history exists EKG Completed 04/26/2024, 04/10, 04/15/2022, Additional history exists HPV (Gardasil) Vaccine Aged Out No lo nger eligible based on patient's age to complete this topic Meningitis B Vaccine (Bexsero/Trumemba) Aged Out No longer eligible based on patient's age to complete this topic documented as of this encounter Medical Devices Implanted Type Area Rotary Machine Operator Device Identifier Shelf Expiration Date Model / Serial / Lot Bard Mesh Perfix Plug Large Implanted:Qty : 1 on 04/24/2014 at OR [facility] Left: Groin 06/09/2014 [id number] / / [id number] Port Power Mri W/8fr Cath - [id number] Implanted:Qty : 1 on 07/30/2015 by Martell Osuna MD at OR [facility] Right: Internal Jugular CR BARD : PERIPHERAL VASCULAR 02/04/2017 [id number] / / [id number] documented as of this encounter Advance Directives * Full Code [...] the patient have Health Care Power of Gaming Manager? Yes, not currently available * Full Code Date Activated Date Inactivated Comments 10/11/2018 5:49 PM 10/11/2018 5:51 PM This order ref lects the patients wishes and were consensually agreed upon. Question Answer Comments Discussion of Advance Directives occurred with: Not Discussed Does the patient have a Living Will? Yes, not cu rrently available Does the patient have Health Care Power of Gaming Manager? Yes, not currently available * Full Code Date Activated Date Inactivated Comments 02/02/2009 12:35 PM 02/03/2009 8:43 AM This order reflects the patients wishes and were consensually agreed upon. Question Answer Comments Discussion of Advance Directives occurred with: Not Discussed Does the patient have a Living Will? No Does the patient have Health Care Power of Attor rico? No Care Teams Jalousie Installer Relationship Specialty Start Date End Date Ran Mora MD [address] [place] [address] PCP - General 02/18/05 documented as of this encounter
--- OUTSIDE RECORDS SUMMARY | 2024-12-18 21:07 | External Medical Summary | Summary of Care ---
Author Name Unknown Organization [facility] Address [address] [place] [address] Phone [phone] Care Team Providers Care Business Programmer Name Role Phone Dong Mora MD Primary Care Provider Reason for Visit * Reason Comments Medication Refill Encounter Details Date Type Department Care Team (Late st Contact Info) Description 11/27/2024 Refill [facility] [address] [place] [address] Dong Mora MD [address] [place] [address] Hypothyroidism due to acquired atrophy of thyroid Allergies No known active allergiesdocumented as of this encounter (statuses as of 11/29/2024) Medications aspirin enteric coated 81 MG TBEC Take 1 Tablet by mouth in the morning. 9 Active Nitroglycerin 0.4 MG Sublingual Tablet Sublingual (Nitrostat)Leticia cations:Angina pectoris (HCC) One tablet under tongue if needed for chest pain. May repeat 3 times. If chest pain continues, call [phone] Tab 11 1 Active Fluticasone Propionate 50 MCG/ACT Nasal Suspension Administer 1 [place] into nostril in the morning. Active Multivitamin [...] Capsule 3 09/06/2024 3:06 PM EST 4 025 Active amLODIPine Besylate 5 MG Oral Tablet (Norvasc)Indica tions:HTN, goal below 140/90 TAKE 1 TABLET BY MOUTH EVERY DAY 90 Tablet 3 09/20/2024 7:12 AM EST 4 025 Active Rosuvastatin Calcium 40 MG Oral Tablet (Crestor)Indica tions:HTN, goal below 130/80,Dyslipid emia, goal LDL below 70 TAKE ONE TABLET BY MOUTH DAILY 90 Tablet 10/12/2024 7:12 AM EST 5 026 Active Lisinopril 40 MG Oral TabletIndicatio [...] g 5 Active Ketoconazole 2 % External CreamIndication s:Seborrheic dermatitis Apply 2x daily scalp and entire face until next derm appointment 60 g 2 5 Active hydroCHLOROthia zide 25 MG Oral Tablet (Hydrodiuril)In dications:HTN, goal below 130/80 Take 0.5 Tablets by mouth in the morning. 5 Active Levothyroxine Sodium 100 MCG Oral Tablet (Levoxyl)Indica tions:Hypothyro idism due to acquired atrophy of thyroid TAKE 1 TABLET BY MOUTH DAILY AT LEAST 30 MINUTES PRIOR TO FIRST MEAL OF THE DAY OR OTHER MEDICATIONS 90 Tablet 3 5 026 Active Levothyroxine Sodium 100 MCG Oral Tablet (Levoxyl)Indica tions:Hypothyro idism due to acquired atrophy of thyroid TAKE 1 TABLET BY MOUTH DAILY AT LEAST 30 MINUTES PRIOR TO FIRST MEAL OF THE DAY OR OTHER MEDICATIONS 90 Tablet 09/06/2024 3:06 PM EST 5 025 Discontin ued(Refil l) documented as of this encounter (statuses as [...] Markers for Patients with Cardiovascular Disease Project #[id number] PI: Jennifer Huffman MD Please call [phone] with study related questions GENOMICS CARDIO RESEARCH OTHER*[id number] 02/02/2009 09/16/2016 Overview (11/23/2009): Renamed Per Clinical Trials Billing Project. 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 Not on file Not [...] encounter Miscellaneous Notes * Telephone Encounter - Dong Mora MD - 11/28/2024 6:32 PM EDTSigned Prescriptions: Disp Refills Levothyroxine Sodium 100 MCG Oral Tablet (*90 Tab*3 Sig: TAKE 1 TABLET BY MOUTH DAILY AT LEAST 30 MINUTES PRIOR TO FIRST MEAL OF THE DAY OR OTHER MEDICATIONS Authorizing Provider: DONG MORA * Telephone Encounter - Corin Hastings [facility] - 11/28/2024 5:06 PM EDTPending Prescriptions: Disp Refills Levothyroxine Sodium 100 MCG Oral Tablet (*90 Tab*0 Sig: TAKE 1 TABLET BY MOUTH DAILY AT LEAST 30 MINUTES PRIOR TO FIRST MEAL OF THE DAY OR OTHER MEDICATIONS * Telephone Encounter - Corin Hastings [facility] - 11/28/2024 5:06 PM EDT Pending Prescriptions: Disp Refills Levothyroxine Sodium 100 MCG Oral Tablet *90 Tab*0 Sig: TAKE 1 TABLET BY MOUTH DAILY AT LEAST 30 MINUTES PRIOR TO FIRST MEAL OF THE DAY OR OTHER MEDICATIONS Last Visit: 09/08/2024 (in office), Visit date not found (telemedicine) Next Visit: Visit date not found If no future appointments scheduled, and last appointment is greater than a year ago, please schedule patient for a follow-up appointment Last date the medication was ordered: 09/01/24 [facility] Is this request for a controlled substance? No Urine Drug Screen:No results found. However, due to the size of the patient record, not all encounters were searched. Please check Results Review for a complete set of results. Patient Phone Numbers Labs: Lab Results Component Value Date/Time CREAT 1.2 10/12/2024 08:55 AM CREAT 1.2 09/04/2020 11:28 AM POTASSIUM 4.1 10/12/2024 08:55 AM POTASSIUM 4.6 09/04/2020 11:28 AM TSH 3.41 06/09/2024 02:05 PM TSH 1.52 05/15/2020 03:25 PM LDL 66 10/12/2024 08:55 AM LDL 89 05/15/2020 03:25 PM LDL NOT APPLICABLE 05/15/2020 03:25 PM ALT 48 10/12/2024 08:55 AM ALT 64 (H) 09/04/2020 11:28 AM HGBA1C 5.6 02/02/2009 09:38 AM * Telephone Encounter - Corin Hastings RPh - 11/28/2024 5:05 PM EDT Please contact patient so that an appointment can be scheduled with his PRIMARY CARE provider before this refill can be authorized. After contacting patient, please forward request to Dong Mora MD. Last Visit: 09/08/2024 (in office - pt left without being seen), Visit date not found (telemedicine) Next Visit: Visit date not found Thank you, Corin Hastings, PharmD Clinical Pharmacist [facility] 11/28/24 5:06 PM [phone] documented in this encounter Plan of Treatment Upcoming Encounters Date Type Department Care Team (Late st Contact Info) Description 11/29/2024 8:00 AM EDT Laboratory Laboratory[facility]a [address] [place] [phone] Ana Laboratory [address] [place] [address] 05/24/2025 8:00 AM EDT [address] [place] [phone] Ana Laboratory [address] [place] [address] 06/01/2025 2:00 PM EDT Office Visit Hematology/Oncology [place] Arreola [place] [address] [facility] [place], [place] [address] Maria Teresa Rizo CRNP [address] [place] [address] Scheduled Procedures Name Priority Associated Diagnoses Date/Ti [...] this encounter Medical Devices Implanted Type Area Communications Editor Device Identifier Shelf Expiration Date Model / Serial / Lot Bard Mesh Perfix Plug Large Implanted:Qty : 1 on 04/24/2014 at OR [facility] Left: Groin 06/09/2014 [id number] / / [id number] Port Power Mri W/8fr Cath - [id number] Implanted:Qty : 1 on 07/30/2015 by Martell Osuna MD at OR [facility] Right: Internal Jugular CR BARD : PERIPHERAL VASCULAR 02/04/2017 [id number] / / [id number] documented as of this encounter Visit Diagnoses Diagnosis Hypothyroidism due to acquired atrophy of thyroid documented in this encounter Advance Directives * [...] the patient have Health Care Power of Fur Cutting Machine Operator? Yes, not currently available * Full Code Date Activated Date Inactivated Comments 10/11/2018 5:49 PM 10/11/2018 5:51 PM This order ref lects the patients wishes and were consensually agreed upon. Question Answer Comments Discussion of Advance Directives occurred with: Not Discussed Does the patient have a Living Will? Yes, not cu rrently available Does the patient have Health Care Power of Fur Cutting Machine Operator? Yes, not currently available * Full Code Date Activated Date Inactivated Comments 02/02/2009 12:35 PM 02/03/2009 8:43 AM This order reflects the patients wishes and were consensually agreed upon. Question Answer Comments Discussion of Advance Directives occurred with: Not Discussed Does the patient have a Living Will? No Does the patient have Health Care Power of Attor rico? No Care Teams Business Programmer Relationship Specialty Start Date End Date Dong Mora MD [address] [place] [address] PCP - General 02/18/05 documented as of this encounter
--- OUTSIDE RECORDS SUMMARY | 2024-12-18 21:07 | External Medical Summary | Summary of Care ---
Author Name Unknown Organization [facility] Address [address] [place] [address] Phone [phone] Care Team Providers Care Land Surveying Survey Worker Name Role Phone Ran Mora MD Primary Care Provider [phone] Encounter Details Date Type Department Care Team (Late st Contact Info) Description 11/24/2024 Telephone [facility] [address] [facility] [place] [address] Ran Mora MD [address] [place] [address] Allergies No known active allergiesdocumented as of this encounter (statuses as of 12/05/2024) Medications aspirin enteric coated 81 MG TBEC Take 1 Tablet by mouth in the morning. 9 Active Nitroglycerin 0.4 MG Sublingual Tablet Sublingual (Nitrostat)Leticia cations:Angina pectoris (HCC) One tablet under tongue if needed for chest pain. May repeat 3 times. If chest pain continues, call [phone] Tab 11 1 Active Fluticasone Propionate 50 MCG/ACT Nasal Suspension Administer 1 [place] into nostril in the morning. Active Multivitamin [...] Capsule 3 12/01/2024 1:01 PM EDT 4 025 Active amLODIPine Besylate 5 MG [...] as of this encounter (statuses as of 12/05/2024) Active Problems Problem Noted Date Diagnosed Date [...] as of this encounter (statuses as of 12/05/2024) Resolved Problems Problem Noted Date Diagnosed Date [...] Markers for Patients with Cardiovascular Disease Project #[id number] PI: Jennifer Huffman MD Please call [phone] with study related questions GENOMICS CARDIO RESEARCH OTHER*[id number] 02/02/2009 09/16/2016 Overview (11/23/2009): Renamed Per Clinical Trials Billing Project. 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 * Telephone Encounter - Edmund Rivera OSA - 11/24/2024 8:18 AM EDT Per 11/24/24 visit Return 3 months for [place] derm/rosacea/contact derm/xerosis. Please schedule documented in this encounter Plan of Treatment Upcoming Encounters Date Type Department Care Team (Late st Contact Info) Description 02/23/2025 2:40 PM EDT Office Visit [address] [place] [address] Yi Montes De Oca PA-C [address] [place] [address] [place] [address] 05/24/2025 8:00 AM EDT Laboratory Laboratory, [place] [place] [address] [place], Laboratory [address] [place] [address] 06/01/2025 2:00 PM EDT [facility] [place] [address] [facility] [place] [phone] Maria Teresa Rizo CRNP [address] [facility] [place] [address] Scheduled Procedures Name Priority Associated Diagnoses Date/Ti [...] this encounter Medical Devices Implanted Type Area Dot Compliance Coordinator Device Identifier Shelf Expiration Date Model / Serial / Lot Bard Mesh Perfix Plug Large Implanted:Qty : 1 on 04/24/2014 at OR [facility] Left: Groin 06/09/2014 [id number] / / [id number] Port Power Mri W/8fr Cath - [id number] Implanted:Qty : 1 on 07/30/2015 by Martell Osuna MD at OR [facility] Right: Internal Jugular CR BARD : PERIPHERAL VASCULAR 02/04/2017 [id number] / / [id number] documented as of this encounter Advance Directives [...] the patient have Health Care Power of Salon Stylist? Yes, not currently available * Full Code Date Activated Date Inactivated Comments 10/11/2018 5:49 PM 10/11/2018 5:51 PM This order ref lects the patients wishes and were consensually agreed upon. Question Answer Comments Discussion of Advance Directives occurred with: Not Discussed Does the patient have a Living Will? Yes, not cu rrently available Does the patient have Health Care Power of Salon Stylist? Yes, not currently available * Full Code Date Activated Date Inactivated Comments 02/02/2009 12:35 PM 02/03/2009 8:43 AM This order reflects the patients wishes and were consensually agreed upon. Question Answer Comments Discussion of Advance Directives occurred with: Not Discussed Does the patient have a Living Will? No Does the patient have Health Care Power of Attor rico? No Care Teams Land Surveying Survey Worker Relationship Specialty Start Date End Date Ran Mora MD [address] [place] [address] PCP - General 02/18/05 documented as of this encounter
--- OUTSIDE RECORDS SUMMARY | 2024-12-18 21:08 | External Medical Summary | Summary of Care ---
Author Name Unknown Organization [facility] Address [address] [place] [address] Phone [phone] Care Team Providers Care Demurrage Worker Name Role Phone Dong Mora MD Primary Care Provider Reason for Visit * Reason Onset Date Comments Blood Pressure Check 11/15/2024 Encounter Details Date Type Department Care Team (Late st Contact Info) Description 11/15/2024 Telephone [facility] [address] [place] [address] Dong Mora MD [address] [place], [place] [id number] Blood Pressure Check Allergies No known active allergiesdocumented as of this encounter (statuses as of 11/24/2024) Medications aspirin enteric coated 81 MG TBEC Take 1 Tablet by mouth in the morning. 04/22/20 19 Active Nitroglycerin 0.4 MG Sublingual Tablet Sublingual (Nitrostat)Ind ications:Angin a pectoris (HCC) One tablet under tongue if needed for chest pain. May repeat 3 times. If chest pain continues, call [phone] Tab 11 01/25/20 21 Active Fluticasone Propionate 50 MCG/ACT Nasal Suspension Administer 1 [place] into nostril in the morning. 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 90 Tablet 3 5 1:24 PM EDT 11/16/19 25 Active hydroCHLOROthi azide 25 MG Oral Tablet (Hydrodiuril)I ndications:HTN , goal below 130/80 Take 0.5 Tablets by mouth in the morning. 11/25/19 25 Active Lisinopril 20 MG Oral Tablet (Prinivil) Take 1 Tablet by mouth in the morning. 100 Tablet 3 5 5:29 PM EST 09/19/19 25 025 Discontinued(M edication/Dose Changed) Lisinopril-hyd roCHLOROthiazi de 20-12.5 MG Oral Tablet Take 1 Tablet by mouth in the morning. 90 Tablet 3 5 6:42 AM EDT 11/02/19 25 025 Discontinued(M edication/Dose Changed) hydroCHLOROthi azide 25 MG Oral Tablet (Hydrodiuril)I ndications:HTN , goal below 130/80 Take 1 Tablet by [...] Markers for Patients with Cardiovascular Disease Project #[id number] PI: Jennifer Huffman MD Please call [phone] with study related questions GENOMICS CARDIO RESEARCH OTHER*[id number] 02/02/2009 09/16/2016 Overview (11/23/2009): Renamed Per Clinical Trials Billing Project. Study Titile: Genomic Markers for Patients with Cardiovascular Disease Project #[id number] PI: Jennifer Huffman MD Please call [phone] with study related questions PAIN IN LIMB, [...] No 09/06/2024 Does the household have a [facility] source of income? 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 New script to [facility] mail order. I also have sent new script for Lisinopril 40mg daily. You can stop the Lisinopril 20/12.5 and Lisinopril 20mg pills. Actually , you could finish the Lisinopril 20mg tabs by taking 2 tabs daily until you start the 40 mg pills. So you will take Lisinopril 40mg daily and HCTZ 25mg daily.Need nonfasting blood work about 10 daysafter change. * Telephone Encounter - Cheryl Syed LPN - 11/15/2024 10:32 AM EDT Images from the original note were not included. Patient requesting this be sent to PCP and cardiology Wyatt Aviles presented for blood pressure check per provider orders. The blood pressure was obtained using the left arm in the sitting position using a adult large cuff. The results were charted in Vital Signs. BP Readings from Last 3 Encounters: 11/15/24 144/82 11/03/24 150/82 10/31/24 144/84 BP 144/82 | Pulse 69 Patient denies headache, pressure in head, dizziness, lightheadedness, chest discomfort, focal neurological symptoms, change in vision, nose bleeds. Did patient take medications today? Yes documented in this encounter Plan of Treatment Upcoming Encounters Date Type Department Care Team (Late st Contact Info) Description 11/29/2024 8:00 AM EDT Laboratory Laboratory, [facility] [address] [address] Ariana Perez [address] [place] [address] 05/24/2025 8:00 AM EDT Laboratory Laboratory[facility] [address] [address] Ana, Laboratory [address] [place] [address] 06/01/2025 2:00 PM EDT Office Visit Hematology/Oncology Rosa Elena Arreola [place] [address] [facility] [place] [address] Maria Teresa Rizo CRNP [address] [place] [address] Scheduled Orders Name Type Priority Associated Diagnoses Orde r Schedule BASIC METABOLIC PANEL Lab Routine HTN, goal below 130/80 Expected: 11/15/2024 (Approximate), Expires: 11/15/2025 Scheduled Procedures Name Priority Associated Diagnoses Date/Ti [...] this encounter Medical Devices Implanted Type Area Power Plant Manager Device Identifier Shelf Expiration Date Model / Serial / Lot Bard Mesh Perfix Plug Large Implanted:Qty : 1 on 04/24/2014 at OR [facility] Left: Groin 06/09/2014 [id number] / / [id number] Port Power Mri W/8fr Cath - [id number] Implanted:Qty : 1 on 07/30/2015 by Martell Osuna MD at OR [facility] Right: Internal Jugular CR BARD : PERIPHERAL VASCULAR 02/04/2017 [id number] / / [id number] documented as of this encounter Visit Diagnoses Diagnosis HTN, goal below 130/80- Primary Unspecified essential hypertension documented in this encounter [...] the patient have Health Care Power of [employer]? Yes, not currently available * Full Code Date Activated Date Inactivated Comments 10/11/2018 5:49 PM 10/11/2018 5:51 PM This order ref lects the patients wishes and were consensually agreed upon. Question Answer Comments Discussion of Advance Directives occurred with: Not Discussed Does the patient have a Living Will? Yes, not cu rrently available Does the patient have Health Care Power of [employer]? Yes, not currently available * Full Code Date Activated Date Inactivated Comments 02/02/2009 12:35 PM 02/03/2009 8:43 AM This order reflects the patients wishes and were consensually agreed upon. Question Answer Comments Discussion of Advance Directives occurred with: Not Discussed Does the patient have a Living Will? No Does the patient have Health Care Power of Attor rico? No Care Teams Demurrage Worker Relationship Specialty Start Date End Date Dong Mora MD [address] [address] PCP - General 02/18/05 documented as of this encounter"
--- OUTSIDE RECORDS SUMMARY | 2024-12-18 21:08 | External Medical Summary | Summary of Care ---
Author Name Unknown Organization [facility] Address [address] [place] [address] Phone [phone] Care Team Providers Care Lumber Sorter Machine Name Role Phone Ran Mora MD Primary Care Provider [phone] Reason for Visit * Reason Onset Date Comments Blood Pressure Check Blood Pressure Check 11/03/2024 Encounter Details Date Type Department Care Team (Latest Contact Info) Description 11/03/2024 9:45 AM EDT Cardiac Studies Cardiac Studies, [facility] [address] [facility] [place] [address] HTN, goal below 130/80* Allergies No known active allergiesdocumented as of this encounter (statuses as of 11/03/2024) Medications aspirin enteric coated 81 MG TBEC Take 1 Tablet by mouth in the morning. 9 Active Nitroglycerin 0.4 MG Sublingual Tablet Sublingual (Nitrostat)Indic ations:Angina pectoris (HCC) One tablet under tongue if needed for chest pain. May repeat 3 times. If chest pain continues, call [phone] Tab 11 1 Active Fluticasone Propionate 50 MCG/ACT Nasal Suspension Administer 1 [place] into nostril in the morning. Active Multivitamin [...] 3:06 PM EST 5 09/01/19 26 Active Lisinopril 20 MG Oral Tablet (Prinivil) Take 1 Tablet by mouth in the morning. 100 Tablet 3 09/22/2024 5:29 PM EST 5 Active Rosuvastatin Calcium 40 MG Oral Tablet (Crestor)Indicat ions:HTN, goal below 130/80,Dyslipide susanna, goal LDL below 70 TAKE ONE TABLET BY MOUTH DAILY 90 Tablet 10/12/2024 7:12 AM EST 5 10/11/19 26 Active Lisinopril-hydro CHLOROthiazide 20-12.5 MG Oral Tablet Take 1 Tablet by mouth in the morning. 90 Tablet 3 5 Active documented as of this encounter (statuses as of 11/03/2024) Active Problems Problem Noted Date Diagnosed Date [...] as of this encounter (statuses as of 11/03/2024) Resolved Problems Problem Noted Date Diagnosed Date [...] Markers for Patients with Cardiovascular Disease Project #[id number] PI: Jennifer Huffman MD Please call [phone] with study related questions GENOMICS CARDIO RESEARCH OTHER*[id number] 02/02/2009 09/16/2016 Overview (11/23/2009): Renamed Per Clinical Trials Billing Project. 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 Answer Date of Assessment Author No 12/31/2018 10:10 AM Jackie Norton RN * Are you blind or do you have serious difficulty seeing, even when wearing glasses? Answer Date of Assessment Author No 12/31/2018 10:10 AM Jackei Norton RN * Do you have serious [...] Jackie Norton RN documented in this encounter Progress Notes * Maria Teresa Gutierrez, [facility] - 11/03/2024 9:41 AM EDT Wyatt Aviles presented for blood pressure check per provider orders. The blood pressure was obtained using the left arm in the sitting position using a adult cuff. The results were charted in Vital Signs. BP Readings from Last 3 Encounters: 11/03/24 150/82 10/31/24 144/84 09/08/24 122/82 BP 150/82 (BP Site: Left Arm, BP Position: Sitting) | Pulse 68 | Resp 16 | Wt 92.8 kg (204 lb 8 oz)| BMI 32.03 kg/m² | BSA 2.09 m² Patient denies headache, pressure in head, dizziness, lightheadedness, chest discomfort, focal neurological symptoms, change in vision, nose bleeds. Did patient take medications today? Yes -- approx 6 a.m. today Patient brought automatic and manual cufff from home for comparison today. Reading in the left arm with automatic cuff: 177/84 Reading in the left arm with manual cuff: 160/84 Patient provided a list of recent readings at home: 132/78 - 10/31/24 - 2 p.m. - manual cuff 128/84 - 11/01/24 - 9:15 a.m. - manual cuff 158/63 - 11/01/24 - 10:15 a.m. - automatic cuff 151/68 - 11/01/24 - 4:36 p.m. - automatic cuff 128/72 - 11/01/24 - 4:38 p.m. - manual cuff 123/61 - 11/02/24 - 6 a.m. - automatic cuff 147/76 - 11/02/24 - 8 a.m. - automatic cuff 147/73 - 11/02/24 - 10:22 a.m. - automatic cuff Patient states he has not yet started the new prescription of Lisinopril/HCTZ as it is coming through the mail order pharmacy. Patient was instructed to follow-up as per their next scheduled appt documented in this encounter Plan of Treatment Upcoming Encounters Date Type Department Care Team (Late st Contact Info) Description 11/24/2024 8:00 AM EDT Office Visit Dermatology, [place] [address] Yi Montes De Oca PA-C [address] [place] [address] [place] [address] 11/29/2024 8:00 AM EDT Laboratory Laboratory, [place] [address] [place] [address] 05/24/2025 8:00 AM EDT Laboratory Laboratory, [place] [address] [place] [address] 06/01/2025 2:00 PM EDT Office Visit Hematology/Oncology Rosa Elena rAreola [place] [address] [place] [address] Maria Teresa Rizo CRNP [address] [place] [id number] Scheduled Orders Name Type Priority Associated Diagnoses Orde r Schedule BLOOD PRESSURE Procedures Routine HTN, goal below 130/80 Ordered: 11/03/2024 Scheduled Procedures Name Priority Associated Diagnoses Date/Ti [...] this encounter Medical Devices Implanted Type Area Electronic Die Maker Device Identifier Shelf Expiration Date Model / Serial / Lot Bard Mesh Perfix Plug Large Implanted:Qty : 1 on 04/24/2014 at OR [facility] Left: Groin 06/09/2014 [id number] / / [id number] Port Power Mri W/8fr Cath - [id number] Implanted:Qty : 1 on 07/30/2015 by Martell Osuna MD at OR [facility] Right: Internal Jugular CR BARD : PERIPHERAL VASCULAR 02/04/2017 [id number] / / [id number] documented as of this encounter Visit Diagnoses [...] the patient have Health Care Power of Blunger Loader? Yes, not currently available * Full Code Date Activated Date Inactivated Comments 10/11/2018 5:49 PM 10/11/2018 5:51 PM This order ref lects the patients wishes and were consensually agreed upon. Question Answer Comments Discussion of Advance Directives occurred with: Not Discussed Does the patient have a Living Will? Yes, not cu rrently available Does the patient have Health Care Power of Blunger Loader? Yes, not currently available * Full Code Date Activated Date Inactivated Comments 02/02/2009 12:35 PM 02/03/2009 8:43 AM This order reflects the patients wishes and were consensually agreed upon. Question Answer Comments Discussion of Advance Directives occurred with: Not Discussed Does the patient have a Living Will? No Does the patient have Health Care Power of Attor rico? No Care Teams Lumber Sorter Machine Relationship Specialty Start Date End Date Ran Mora MD [address] [address] PCP - General 02/18/05 documented as of this encounter"
--- OUTSIDE RECORDS SUMMARY | 2024-12-18 21:08 | External Medical Summary | Summary of Care ---
Author Name Unknown Organization [facility] Address [address] [place] [address] Phone [phone] Care Team Providers Care Electrolytic Etcher Name Role Phone Ran Mora MD Primary Care Provider [phone] Reason for Visit * Reason Onset Date Comments FYI 11/01/2024 Encounter Details Date Type Department Care Team (Late st Contact Info) Description 11/01/2024 Telephone [facility] [address] [place] [address] Ran Mora MD [address] [place] [address] FYI Allergies No known active allergiesdocumented as of this encounter (statuses as of 11/03/2024) Medications aspirin enteric coated 81 MG TBEC Take 1 Tablet by mouth in the morning. 9 Active Nitroglycerin 0.4 MG Sublingual Tablet Sublingual (Nitrostat)Indic ations:Angina pectoris (HCC) One tablet under tongue if needed for chest pain. May repeat 3 times. If chest pain continues, call [phone] Tab 11 1 Active Fluticasone Propionate 50 MCG/ACT Nasal Suspension Administer 1 [place] into nostril in the morning. Active Multivitamin [...] Markers for Patients with Cardiovascular Disease Project #[id number] PI: Jennifer Huffman MD Please call [phone] with study related questions GENOMICS CARDIO RESEARCH OTHER*[id number] 02/02/2009 09/16/2016 Overview (11/23/2009): Renamed Per Clinical Trials Billing Project. Study Titile: Genomic Markers for Patients with Cardiovascular Disease Project #[id number] PI: Jennifer Huffman MD Please call [phone] with study related questions PAIN IN LIMB, LEFT HEEL 10/23/200504/2017 PERIAPICAL ABSCESS 07/12/2005 7 documented as of this encounter (statuses as of 11/03/2024) Immunizations Name Administration Dates Next Due COVID-19 mRNA, LNP-s, No Pre serve, 2-Dose Series (Exosite) 05/20/2021,10/29/2020,10/08/2020 Covid-19, Mrna, Lnp-s, Pf, B ivalent, 30 Mcg, IM, 12 yrs and above (Exosite) 06/11/2022 DTaP Dipth/Tet/Acell Pertussis (Infanrix), Peds 09/04/2020,05/15/2020,01/23/2020 [...] No 09/06/2024 Does the [facility] have a [facility] source [facility]? 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 Answer Date of Assessment Author No 12/31/2018 10:10 AM Jackie Norton, CRIS * Are you blind or do you have serious difficulty seeing, even when wearing glasses? Answer Date of Assessment Author No 12/31/2018 10:10 AM Jackie Norton, CRIS * Do you have serious difficulty walking [...] encounter Miscellaneous Notes * Telephone Encounter - Kiley Trinh LPN - 11/03/2024 1:48 PM EDT Spoke with pt and made aware of messages below. Pt requested the information be put in his Versafe message. This was done also. Pt stated understanding. * Telephone Encounter - Ran Powell PA-C - 11/02/2024 3:48 PM EDT Okay to add low-dose HCTZ (already prescribed by PCP) though will need to increase oral intake and obtain follow-up blood work as ordered through PCP, in 1 week. Ran Powell PA-C Department of Cardiology * Telephone Encounter - Kiley Trinh LPN - 11/02/2024 2:42 PM EDT FYI: Spoke with pt regarding message below. Pt stated his excelsior machine feeder was also thinking about changing pt's medication. Pt will be in tomorrow for another BP check. He is bringing in hisfrom home to alsoget it checked. Pt would like the BP results sent to Pcp and excelsior machine feeder * Telephone Encounter - Ran Mora MD - 11/01/2024 5:36 PM EDT Notify pt: BP still elevated. Stop lisinopril. Start Lisinopril/ HCTZ 20/12.5 one daily in AM. Sent to mail order Need BMP about 7-10 days after starting newqmed. Need nurse BP check 1 month after new med started * Telephone Encounter - Sofya Leroy LPN - 11/01/2024 1:03 PM EDT Pt here for nurse visit for blood pressure check due to elevated blood pressure at last office visit. B/P 154/77 Pulse 62 BP Readings from Last 4 Encounters: 10/31/24 144/84 09/08/24 122/82 05/31/24 122/60 04/26/24 128/74 Please advise. documented in this encounter Plan of Treatment Upcoming Encounters Date Type Department Care Team (Late st Contact Info) Description 11/24/2024 8:00 AM EDT Office Visit Dermatology, [facility] [address] [address] Yi Montes De Oca PA-C [address] [place] [address] [place] [address] 11/29/2024 8:00 AM EDT Laboratory Laboratory, [place] [address] [place] [address] 05/24/2025 8:00 AM EDT Laboratory Laboratory, [facility] [address] [address] Ana, Laboratory [address] [place] [address] 06/01/2025 2:00 PM EDT Office Visit Hematology/Oncology Rosa Elena Arreola [place] [facility] [address] Maria Teresa Rizo CRNP [address] [place] [address] Scheduled Orders Name Type Priority Associated Diagnoses Orde r Schedule BASIC METABOLIC PANEL Lab Routine HTN, goal below 130/80 Expected: 11/01/2024 (Approximate), Expires: 11/01/2025 Scheduled Procedures Name Priority Associated Diagnoses Date/Ti [...] this encounter Medical Devices Implanted Type Area Poultry Farm Manager Device Identifier Shelf Expiration Date Model / Serial / Lot Bard Mesh Perfix Plug Large Implanted:Qty : 1 on 04/24/2014 at OR [facility] Left: Groin 06/09/2014 [id number] / / [id number] Port Power Mri W/8fr Cath - [id number] Implanted:Qty : 1 on 07/30/2015 by Martell Osuna MD at OR [facility] Right: Internal Jugular CR BARD : PERIPHERAL VASCULAR 02/04/2017 [id number] / / [id number] documented as of this encounter Visit Diagnoses [...] the patient have Health Care Power of Operations Lieutenant? Yes, not currently available * Full Code Date Activated Date Inactivated Comments 10/11/2018 5:49 PM 10/11/2018 5:51 PM This order ref lects the patients wishes and were consensually agreed upon. Question Answer Comments Discussion of Advance Directives occurred with: Not Discussed Does the patient have a Living Will? Yes, not cu rrently available Does the patient have Health Care Power of Operations Lieutenant? Yes, not currently available * Full Code Date Activated Date Inactivated Comments 02/02/2009 12:35 PM 02/03/2009 8:43 AM This order reflects the patients wishes and were consensually agreed upon. Question Answer Comments Discussion of Advance Directives occurred with: Not Discussed Does the patient have a Living Will? No Does the patient have Health Care Power of Attor rico? No Care Teams Electrolytic Etcher Relationship Specialty Start Date End Date Ran Mora MD [address] [place] [address] PCP - General 02/18/05 documented as of this encounter
--- OUTSIDE RECORDS SUMMARY | 2024-12-18 21:08 | External Medical Summary | Summary of Care ---
Author Name Unknown Organization [facility] Address [address] [place] [address] Phone [phone] Care Team Providers Care Treatment Plant Mechanic Name Role Phone Ran Mora MD Primary Care Provider [phone] Reason for Visit * Reason Onset Date Comments Blood Pressure Check 11/15/2024 Encounter Details Date Type Department Care Team (Late st Contact Info) Description 11/15/2024 10:30 AM EDT Nurse Only Ancillary Department, [place] [address] [address] [place] Nurse [address] [id number] Blood Pressure Check Allergies No known active allergiesdocumented as of this encounter (statuses as of 11/15/2024) Medications aspirin enteric coated 81 MG TBEC Take 1 Tablet by mouth in the morning. 9 Active Nitroglycerin 0.4 MG Sublingual Tablet Sublingual (Nitrostat)Leticia cations:Angina pectoris (HCC) One tablet under tongue if needed for chest pain. May repeat 3 times. If chest pain continues, call [phone] Tab 11 1 Active Fluticasone Propionate 50 MCG/ACT Nasal Suspension Administer 1 [place] into nostril in the morning. 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 100 Tablet 3 09/22/2024 5:29 PM EST 5 025 Discontin ued(Medic ation/Dos e Changed) Lisinopril-hydr oCHLOROthiazide 20-12.5 MG Oral Tablet Take 1 Tablet by mouth in the morning. 90 Tablet 3 11/04/2024 6:42 AM EDT 5 025 Discontin ued(Medic ation/Dos e Changed) documented as of this encounter (statuses as of 11/15/2024) Active Problems Problem Noted Date Diagnosed Date [...] as of this encounter (statuses as of 11/15/2024) Resolved Problems Problem Noted Date Diagnosed Date [...] Markers for Patients with Cardiovascular Disease Project #[id number] PI: Jennifer Huffman MD Please call [phone] with study related questions GENOMICS CARDIO RESEARCH OTHER*[id number] 02/02/2009 09/16/2016 Overview (11/23/2009): Renamed Per Clinical Trials Billing Project. 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 Not on file Not on file documented as of this encounter Last Filed Vital Signs Vital Sign Reading Time Taken Comments Blood Pressure 144/82 11/15/2024 10:25 AM EDT Pulse 69 11/15/2024 10:25 AM EDT Temperature - - Respiratory Rate - - Oxygen Saturation - - Inhaled Oxygen Concentration - - Weight - - Height - - Body Mass Index - - documented in this encounter Functional Status * [...] documented in this encounter Progress Notes * Cheryl Syed LPN - 11/15/2024 10:31 AM EDT Wyatt Aviles presented for blood [...] 8:00 AM EDT Office Visit Dermatology, [address] Rupinder Perez, [place] [address] Yi Montes De Oca PA-C [address] [place] [address] [place] [address] 11/29/2024 8:00 AM EDT Laboratory Laboratory, [address] Rupinder Perez, [place] [address] [place], Laboratory [address], [place] [address] 05/24/2025 8:00 AM EDT Laboratory Laboratory, [address] Rupinder Perez, [place] [address] [place], Laboratory [address], [place] [address] 06/01/2025 2:00 PM EDT Office Visit Hematology/Oncology [facility] [address] [facility] [address] Maria Teresa Rizo [facility] [address] [facility] [place] [address] Scheduled Orders Name Type Priority Associated Diagnoses Orde r Schedule BLOOD PRESSURE Procedures Routine HTN, goal below 130/80 Ordered: 11/15/2024 Scheduled Procedures Name Priority Associated Diagnoses Date/Ti [...] Additional history exists AAA Screening Completed 11/09/2023, 0603/2019, 11/07/2015, Additional history exists HPV (Gardasil) Vaccine Aged Out No lo nger eligible based on patient's age to complete this topic Meningitis B Vaccine (Bexsero/Trumemba) Aged Out No longer eligible based on patient's age to complete this topic documented as of this encounter Medical Devices Implanted Type Area Principal Electrical Engineer Device Identifier Shelf Expiration Date Model / Serial / Lot Bard Mesh Perfix Plug Large Implanted:Qty : 1 on 04/24/2014 at OR [facility] Left: Groin 06/09/2014 [id number] / / [id number] Port Power Mri W/8fr Cath - [id number] Implanted:Qty : 1 on 07/30/2015 by Martell Osuna MD at [facility] Right: Internal Jugular CR BARD : PERIPHERAL VASCULAR 02/04/2017 [id number] / / [id number] documented as of this encounter Visit Diagnoses [...] the patient have Health Care Power of Flame Hardening Machine Setter? Yes, not currently available * Full Code Date Activated Date Inactivated Comments 10/11/2018 5:49 PM 10/11/2018 5:51 PM This order ref lects the patients wishes and were consensually agreed upon. Question Answer Comments Discussion of Advance Directives occurred with: Not Discussed Does the patient have a Living Will? Yes, not cu rrently available Does the patient have Health Care Power of Flame Hardening Machine Setter? Yes, not currently available * Full Code Date Activated Date Inactivated Comments 02/02/2009 12:35 PM 02/03/2009 8:43 AM This order reflects the patients wishes and were consensually agreed upon. Question Answer Comments Discussion of Advance Directives occurred with: Not Discussed Does the patient have a Living Will? No Does the patient have Health Care Power of Attor rico? No Care Teams Treatment Plant Mechanic Relationship Specialty Start Date End Date Ran Mora MD [address] [address] PCP - General 02/18/05 documented as of this encounter"
--- OUTSIDE RECORDS SUMMARY | 2024-12-18 21:08 | External Medical Summary | Summary of Care ---
Author Name Unknown Organization [facility] Address [address] [place] [address] Phone [phone] Care Team Providers Care Fishing Worker Name Role Phone Ran Mora MD Primary Care Provider Reason for Visit * Reason Onset Date Comments Blood Pressure Check 11/15/2024 Encounter Details Date Type Department Care Team (Late st Contact Info) Description 11/15/2024 Telephone [facility] [address] [place] [address] Ran Mora MD [address] [place], [place] [id number] Blood Pressure Check Allergies No known active allergiesdocumented as of this encounter (statuses as of 11/15/2024) Medications aspirin enteric coated 81 MG TBEC Take 1 Tablet by mouth in the morning. 9 Active Nitroglycerin 0.4 MG Sublingual Tablet Sublingual (Nitrostat)Leticia cations:Angina pectoris (HCC) One tablet under tongue if needed for chest pain. May repeat 3 times. If chest pain continues, call [phone] Tab 11 1 Active Fluticasone Propionate 50 MCG/ACT Nasal Suspension Administer 1 [place] into nostril in the morning. Active Multivitamin [...] the morning. 90 Tablet 3 5 Active hydroCHLOROthia zide 25 MG Oral Tablet (Hydrodiuril)In dications:HTN, goal below 130/80 Take 1 Tablet by mouth in the morning. 90 Tablet 3 5 Active Lisinopril 20 MG Oral Tablet (Prinivil) [...] Markers for Patients with Cardiovascular Disease Project #[id number] PI: Jennifer Huffman MD Please call [phone] with study related questions GENOMICS CARDIO RESEARCH OTHER*[id number] 02/02/2009 09/16/2016 Overview (11/23/2009): Renamed Per Clinical Trials Billing Project. Study Titile: Genomic Markers for Patients with Cardiovascular Disease Project #[id number] PI: Jennifer Huffman MD Please call [phone] with study related questions PAIN IN LIMB, LEFT HEEL 10/23/200504/2017 PERIAPICAL ABSCESS 07/12/2005 7 documented as of this encounter (statuses as of 11/15/2024) Immunizations Name Administration Dates Next Due COVID-19 mRNA, LNP-s, No Pre serve, 2-Dose Series ([facility]) 05/20/2021,10/29/2020,10/08/2020 Covid-19, Mrna, Lnp-s, Pf, B ivalent, 30 Mcg, IM, 12 yrs and above ([facility]) 06/11/2022 DTaP Dipth/Tet/Acell Pertussis ([employer]), Peds 09/04/2020,05/15/2020,01/23/2020 [...] No 09/06/2024 Does the household have a [facility] memorial hospitall[facility] source of income? 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 New script to [email or web address] mail order. I also have sent new [...] Description 11/24/2024 8:00 [place] [phone] Yi Montes De Oca PA-C [address] [place] [address] [place] [address] 11/29/2024 8:00 [place] [phone] [facility] Laboratory [place] [address] 05/24/2025 8:00 [place] [address] [facility] Laboratory [place] [address] 06/01/2025 2:00 PM EDT Office Visit Hematology/Oncology Rosa Elena Arreola [place] [address] [place] [address] Maria Teresa Rizo CRNP [address] [place] [address] Scheduled Orders Name Type Priority Associated Diagnoses [...] this encounter Medical Devices Implanted Type Area Track And Field Coach Device Identifier Shelf Expiration Date Model / Serial / Lot Bard Mesh Perfix Plug Large Implanted:Qty : 1 on 04/24/2014 at OR [facility] Left: Groin 06/09/2014 [id number] / / [id number] Port Power Mri W/8fr Cath - [id number] Implanted:Qty : 1 on 07/30/2015 by Martell Osuna MD at OR [facility] Right: Internal Jugular CR BARD : PERIPHERAL VASCULAR 02/04/2017 [id number] / / [id number] documented as of this encounter Visit Diagnoses [...] the patient have Health Care Power of Milk House Worker? Yes, not currently available * Full Code Date Activated Date Inactivated Comments 10/11/2018 5:49 PM 10/11/2018 5:51 PM This order ref lects the patients wishes and were consensually agreed upon. Question Answer Comments Discussion of Advance Directives occurred with: Not Discussed Does the patient have a Living Will? Yes, not cu rrently available Does the patient have Health Care Power of Milk House Worker? Yes, not currently available * Full Code Date Activated Date Inactivated Comments 02/02/2009 12:35 PM 02/03/2009 8:43 AM This order reflects the patients wishes and were consensually agreed upon. Question Answer Comments Discussion of Advance Directives occurred with: Not Discussed Does the patient have a Living Will? No Does the patient have Health Care Power of Attor rioc? No Care Teams Fishing Worker Relationship Specialty Start Date End Date Ran Mora MD [address] [address] PCP - General 02/18/05 documented as of this encounter"
--- OUTSIDE RECORDS SUMMARY | 2024-12-18 21:08 | External Medical Summary | Summary of Care ---
Author Name Unknown Organization [facility] Address [address] [place] [address] Phone [phone] Care Team Providers Care Doctor Of Chiropractic Name Role Phone Ran Mora MD Primary Care Provider [phone] Reason for Visit * Reason Onset Date Comments Information 11/02/2024 Advice 11/02/2024 Encounter Details Date Type Department Care Team (Late st Contact Info) Description 11/02/2024 Telephone Cardiology, [facility] [address] [place] [address] Ran Powell, MIKEC [address] [facility] [place] [address] Information; Advice Allergies No known active allergiesdocumented as of this encounter (statuses as of 11/03/2024) Medications aspirin enteric coated 81 MG TBEC Take 1 Tablet by mouth in the morning. 9 Active Nitroglycerin 0.4 MG Sublingual Tablet Sublingual (Nitrostat)Indic ations:Angina pectoris (HCC) One tablet under tongue if needed for chest pain. May repeat 3 times. If chest pain continues, call [phone] Tab 11 1 Active Fluticasone Propionate 50 MCG/ACT Nasal Suspension Administer 1 [place] into nostril in the morning. Active Multivitamin [...] Markers for Patients with Cardiovascular Disease Project #[id number] PI: Jennifer Huffman MD Please call [phone] with study related questions GENOMICS CARDIO RESEARCH OTHER*[id number] 02/02/2009 09/16/2016 Overview (11/23/2009): Renamed Per Clinical Trials Billing Project. Study Titile: Genomic Markers for Patients with Cardiovascular Disease Project #[id number] PI: Jennifer Huffman MD Please call [phone] with study related questions PAIN IN LIMB, LEFT HEEL 10/23/200504/2017 PERIAPICAL ABSCESS 07/12/2005 7 documented as of this encounter (statuses as of 11/03/2024) Immunizations Name Administration Dates Next Due COVID-19 mRNA, LNP-s, No Pre serve, 2-Dose Series ([employer]) 05/20/2021,10/29/2020,10/08/2020 Covid-19, Mrna, Lnp-s, Pf, B ivalent, 30 Mcg, IM, 12 yrs and above ([employer]) 06/11/2022 DTaP Dipth/Tet/Acell Pertussis ([employer]), Peds 09/04/2020,05/15/2020,01/23/2020 [...] - Admiistered in a separate encounter by A BRANDYN Pugh),07/11/2019,09/16/2017 09/16/2018 Seasonal Influenza, Quadriva lent, No Preserve, [...] No 09/06/2024 Does the household have a [facility] cancer center[facility] source of income? 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 (5 years old or older) Answer Date of Assessment Author No 12/31/2018 10:10 AM Jackie Norton, CRIS * Do you have difficulty dressing or bathing? (5 years old or older) Answer Date of Assessment Author No 12/31/2018 10:10 AM EDJackie Ortiz RN * Because of a physical, mental, [...] encounter Miscellaneous Notes * Telephone Encounter - Matthew Adhikari LPN - 11/02/2024 3:52 PM EDT Sent patient a [employer] message to make aware. * Telephone Encounter - Ran Powell PA-C - 11/02/2024 3:49 PM EDT Okay to add low-dose HCTZ (already prescribed by PCP) though will need to increase oral intake and obtain follow-up blood work as ordered through PCP, in 1 week. Ran Powell PA-C Department of Cardiology * Telephone Encounter - Maria Teresa Gutierrez CMA - 11/02/2024 2:50 PM EDT Patient calling in - saw Ran Powell PA-C on 10-31-2024 and then had a BP check in [place] yesterday, 11-01-2024. States he was told by the nurse in [place] that she was not permitted to checkhis BP with his home cuff at the appointment yesterday to be able to compare. States fam prac doctor noticed patient had elevated BP at yesterday's check and wanted to change medications -- changing from Lisinopril to Lisinopril/HCTZ and patient notes that Ran did not want ptto change to a diuretic, so he wanted to check in with Ran prior to starting medication as he has concerns with this decision and notes he reported to Ran that he already has trouble staying hydrated. Patient states he is to have BP rechecked again tomorrow but was again told they would not check his BP with his home cuff at that time. Offered patient an appointment at the [facility] cardiology office for a BP check and comparison with his home cuff -- patient is now scheduled for BP check on 11-03-2024 at 9:45 a.m. documented in this encounter Plan of Treatment Upcoming Encounters Date Type Department Care Team (Late st Contact Info) Description 11/24/2024 8:00 [place] [phone] Yi Montes De Oca PA-C [address] [place] [address] [place] [address] 11/29/2024 8:00 [place] [phone] Ana Laboratory [place] [address] 05/24/2025 8:00 [place] [phone] [place] [address] 06/01/2025 2:00 PM EDT Office Visit Hematology/Oncology [address] [place] [address] Maria Teresa Rizo, BENIGNO [address] [place] [address] Scheduled Procedures Name Priority [...] this encounter Medical Devices Implanted Type Area Printing Roller Handler Device Identifier Shelf Expiration Date Model / Serial / Lot Bard Mesh Perfix Plug Large Implanted:Qty : 1 on 04/24/2014 at OR [facility] Left: Groin 06/09/2014 [id number] / / [id number] Port Power Mri W/8fr Cath - [id number] Implanted:Qty : 1 on 07/30/2015 by Martell Osuna MD at OR [facility] Right: Internal Jugular CR BARD : PERIPHERAL VASCULAR 02/04/2017 [id number] / / [id number] documented as of this encounter Advance Directives [...] the patient have Health Care Power of Grades 6 Through 8 Teacher? Yes, not currently available * Full Code Date Activated Date Inactivated Comments 10/11/2018 5:49 PM 10/11/2018 5:51 PM This order ref lects the patients wishes and were consensually agreed upon. Question Answer Comments Discussion of Advance Directives occurred with: Not Discussed Does the patient have a Living Will? Yes, not cu rrently available Does the patient have Health Care Power of Grades 6 Through 8 Teacher? Yes, not currently available * Full Code Date Activated Date Inactivated Comments 02/02/2009 12:35 PM 02/03/2009 8:43 AM This order reflects the patients wishes and were consensually agreed upon. Question Answer Comments Discussion of Advance Directives occurred with: Not Discussed Does the patient have a Living Will? No Does the patient have Health Care Power of Attor rico? No Care Teams Doctor Of Chiropractic Relationship Specialty Start Date End Date Ran Mora MD [address] [facility] [place] [address] PCP - General 02/18/05 documented as of this encounter
--- OUTSIDE RECORDS SUMMARY | 2024-12-18 21:08 | External Medical Summary | Summary of Care ---
Author Name Unknown Organization [facility] Address [address] [place] [address] Phone [phone] Care Team Providers Care Administrative And Program Specialist Name Role Phone Ran Mora MD Primary Care Provider [phone] Reason for Visit * Reason Onset Date Comments Blood Pressure Check Blood Pressure Check 11/03/2024 Encounter Details Date Type Department Care Team (Latest Contact Info) Description 11/03/2024 9:45 AM EDT Cardiac Studies Cardiac Studies, [facility] [address] [facility] [place] [address] HTN, goal below 130/80* [...] 3 times. If chest pain continues, call [phone] Tab 11 1 Active Fluticasone Propionate 50 MCG/ACT Nasal Suspension Administer 1 [place] into nostril in the morning. Active Multivitamin [...] Markers for Patients with Cardiovascular Disease Project #[id number] PI: Jennifer Huffman MD Please call [phone] with study related questions GENOMICS CARDIO RESEARCH OTHER*[id number] 02/02/2009 09/16/2016 Overview (11/23/2009): Renamed Per Clinical Trials Billing Project. 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 Not [...] encounter Progress Notes * Maria Teresa Gutierrez, [facility] - 11/03/2024 9:41 AM EDT Wy[address] Aviles [...] [place] [address] Yi Montes De Oca PA-C [address] [place] [address] [place] [address] 11/29/2024 8:00 AM EDT Laboratory Laboratory, [place] [address] [place] [address] 05/24/2025 8:00 AM EDT Laboratory Laboratory, [place] [address] [place] [address] 06/01/2025 2:00 PM EDT Office Visit Hematology/Oncology Rosa Elena Arreola [place] [address] [place] [address] Maria Teresa Rizo CRNP [address] [place] [id number] Scheduled Orders Name Type Priority Associated Diagnoses [...] this encounter Medical Devices Implanted Type Area Disability Advocate Device Identifier Shelf Expiration Date Model / Serial / Lot Bard Mesh Perfix Plug Large Implanted:Qty : 1 on 04/24/2014 at OR [facility] Left: Groin 06/09/2014 [id number] / / [id number] Port Power Mri W/8fr Cath - [id number] Implanted:Qty : 1 on 07/30/2015 by Martell Osuna MD at OR [facility] Right: Internal Jugular CR BARD : PERIPHERAL VASCULAR 02/04/2017 [id number] / / [id number] documented as of this encounter Visit Diagnoses [...] the patient have Health Care Power of Indigo Mixer? Yes, not currently available * Full Code Date Activated Date Inactivated Comments 10/11/2018 5:49 PM 10/11/2018 5:51 PM This order ref lects the patients wishes and were consensually agreed upon. Question Answer Comments Discussion of Advance Directives occurred with: Not Discussed Does the patient have a Living Will? Yes, not cu rrently available Does the patient have Health Care Power of Indigo Mixer? Yes, not currently available * Full Code Date Activated Date Inactivated Comments 02/02/2009 12:35 PM 02/03/2009 8:43 AM This order reflects the patients wishes and were consensually agreed upon. Question Answer Comments Discussion of Advance Directives occurred with: Not Discussed Does the patient have a Living Will? No Does the patient have Health Care Power of Attor rico? No Care Teams Administrative And Program Specialist Relationship Specialty Start Date End Date Ran Mora MD [address] [address] PCP - General 02/18/05 documented as of this encounter"
--- OUTSIDE RECORDS SUMMARY | 2024-12-18 21:08 | External Medical Summary | Summary of Care ---
Author Name Unknown Organization [facility] Address [address] [place] [address] Phone [phone] Care Team Providers Care Head Irrigator Name Role Phone Ran Mora MD Primary Care Provider [phone] Reason for Visit * Reason Onset Date Comments FYI 11/01/2024 Encounter Details Date Type Department Care Team (Late st Contact Info) Description 11/01/2024 Telephone [facility] [address] [place] [address] Ran Mora MD [address] [place] [address] FYI Allergies No known active allergiesdocumented as of this encounter (statuses as of 11/03/2024) Medications aspirin enteric coated 81 MG TBEC Take 1 Tablet by mouth in the morning. 9 Active Nitroglycerin 0.4 MG Sublingual Tablet Sublingual (Nitrostat)Indic ations:Angina pectoris (HCC) One tablet under tongue if needed for chest pain. May repeat 3 times. If chest pain continues, call [phone] Tab 11 1 Active Fluticasone Propionate 50 MCG/ACT Nasal Suspension Administer 1 [place] into nostril in the morning. Active Multivitamin [...] Markers for Patients with Cardiovascular Disease Project #[id number] PI: Jennifer Huffman MD Please call [phone] with study related questions GENOMICS CARDIO RESEARCH OTHER*[id number] 02/02/2009 09/16/2016 Overview (11/23/2009): Renamed Per Clinical Trials Billing Project. Study Titile: Genomic Markers for Patients with Cardiovascular Disease Project #[id number] PI: Jennifer Huffman MD Please call [phone] with study related questions PAIN IN LIMB, LEFT HEEL 10/23/200504/2017 PERIAPICAL ABSCESS 07/12/2005 7 documented as of this encounter (statuses as of 11/03/2024) Immunizations Name Administration Dates Next Due COVID-19 mRNA, LNP-s, No Pre serve, 2-Dose Series ([employer]) 05/20/2021,10/29/2020,10/08/2020 Covid-19, Mrna, Lnp-s, Pf, B ivalent, 30 Mcg, IM, 12 yrs and above ([employer]) 06/11/2022 DTaP Dipth/Tet/Acell Pertussis (Infanrix), Peds 09/04/2020,05/15/2020,01/23/2020 [...] No 09/06/2024 Does the household have a [facility] hospitall[facility] source of income? 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 This was done also. Pt stated [...] pt regarding message below. Pt stated his body rolling machine tender was also thinking about changing pt's medication. Pt will be in tomorrow for another BP check. He is bringing in hisfrom home to alsoget it checked. Pt would like the BP results sent to Pcp and body rolling machine tender * Telephone Encounter - Ran Mora MD [...] [place] [address] Yi Montes De Oca PA-C [address] [place] [address] [place] [address] 11/29/2024 8:00 AM EDT Laboratory Laboratory, [place] [address] [place] [address] 05/24/2025 8:00 AM EDT Laboratory Laboratory, [place] [address] [place] [address] [place], Laboratory [address] [place] [address] 06/01/2025 2:00 PM EDT Office Visit Hematology/Oncology Rosa Elena Arreola [place] [facility] [address] Maria Teresa Rizo CRNP [address] [place] [address] Scheduled Orders Name Type Priority Associated Diagnoses [...] this encounter Medical Devices Implanted Type Area Soil Technician Device Identifier Shelf Expiration Date Model / Serial / Lot Bard Mesh Perfix Plug Large Implanted:Qty : 1 on 04/24/2014 at OR [facility] Left: Groin 06/09/2014 [id number] / / [id number] Port Power Mri W/8fr Cath - [id number] Implanted:Qty : 1 on 07/30/2015 by Martell Osuna MD at OR [facility] Right: Internal Jugular CR BARD : PERIPHERAL VASCULAR 02/04/2017 [id number] / / [id number] documented as of this encounter Visit Diagnoses [...] the patient have Health Care Power of Vest Front Presser? Yes, not currently available * Full Code Date Activated Date Inactivated Comments 10/11/2018 5:49 PM 10/11/2018 5:51 PM This order ref lects the patients wishes and were consensually agreed upon. Question Answer Comments Discussion of Advance Directives occurred with: Not Discussed Does the patient have a Living Will? Yes, not cu rrently available Does the patient have Health Care Power of Vest Front Presser? Yes, not currently available * Full Code Date Activated Date Inactivated Comments 02/02/2009 12:35 PM 02/03/2009 8:43 AM This order reflects the patients wishes and were consensually agreed upon. Question Answer Comments Discussion of Advance Directives occurred with: Not Discussed Does the patient have a Living Will? No Does the patient have Health Care Power of Attor rico? No Care Teams Head Irrigator Relationship Specialty Start Date End Date Ran Mora MD [address] [place] [address] PCP - General 02/18/05 documented as of this encounter
--- OUTSIDE RECORDS SUMMARY | 2024-12-18 21:08 | External Medical Summary | Summary of Care ---
Author Name Unknown Organization [facility] Address [address] [place] [address] Phone [phone] Care Team Providers Care Regulatory Affairs Assistant Name Role Phone Ran Mora MD Primary Care Provider Reason for Visit * Reason Comments NEW [...] tel: fax: Yi Montes De Oca PA-C [address] [place] [address] Phone: tel: fax: Referral ID Status Reason Start Date Expiration Date Visits Requested Visits Authorized [id number] Authorized Specialty Services Required 05/09/[phone] Encounter Details Date Type Department Care Team (Late st Contact Info) Description 11/24/2024 8:00 AM EDT [facility] [address] [place] [phone] Yi Montes De Oca PA-C [address] [place] [address] [place] [address] Rosacea*; Seborrheic dermatitis; Xerosis cutis; [...] Propionate 50 MCG/ACT Nasal Suspension Administer 1 [place] into nostril in the morning. Active Multivitamin [...] 3 11/17/2024 1:24 PM EDT 5 Active hydroCHLOROthiaz christelle 25 MG Oral Tablet (Hydrodiuril)Ind ications:HTN, goal below 130/80 Take 1 Tablet by [...] derm appointment 60 g 2 5 Active documented as of this encounter [...] Markers for Patients with Cardiovascular Disease Project #[id number] PI: Jennifer Huffman MD Please call [phone] with study related questions GENOMICS CARDIO RESEARCH OTHER*[id number] 02/02/2009 09/16/2016 Overview (11/23/2009): Renamed Per Clinical Trials Billing Project. 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 If bad areas are on handsand/or feet, then cover them with brown jersey gloves (cheaper than white cotton gloves)-buy at [employer]. Purchase a chlorine filtered shower head-will cut down on dryness of skin, dandruff of scalp/face(if an issue for you), and could help with breathing/respiratory issues. QUESTIONS? Call Dermatology at during normal business hours or for an emergency, call [phone] and ask to speak to the resident application engineer. SUNSCREEN USE AND SUN PROTECTION: 1. The [...] documented in this encounter Progress Notes * Yi Montes De Oca PA-C - [...] NONE Reviewed, same day as visit, 1 [facility] Dermatology lab work(s)/pathology report(s) as well as those sent by referring provider prior to seeing pt. Past Medical History: Diagnosis Date RAFIQ (acute kidney injury) ([facility]) 10/27/2018 NOTED 10/27/18 HISTORICAL Anxiety state 01/19/2017 Asthma, mild intermittent 10/16/2013 C. difficile diarrhea 01/19/2019 NOTED 01/19/19 HISTORICAL Cerebrovascular event, ill-defined, within last 8 weeks 08/14 left sided paralysis - nearly completely resolved/ TPA Chronic ischemic heart disease 02/05/2009 Dehydration 10/27/2018 NOTED 10/27/18 HISTORICAL DLBCL (diffuse large B cell lymphoma) ([facility]) 07/20/2015 HTN, goal below 130/80 10/23/2005 HTN, [...] Propionate 50 MCG/ACT Nasal Suspension Administer 1 [place] into nostril in the morning. Multivitamin Adult [...] palpation of scalp, posterior calvescompleted: 1. Scalp/eyebrows/nasolabial folds-Pisinemo white scale on pink base. 2. Posterior calves-Xerosis with scale and faint pink patches with excoriation. 3. Central daej-Gldl-gflgqyfkxd erythematous base and matted telangiectasias. ASSESS MENT/PLAN: [...] They were instructed to contact me (via [employer] and have a message sent to me from the instrument lens grinder apprentice that answers or through their [employer] patient portal) if additional questions, concerns, or [...] Montes De Oca PA-C 11/24/2024 8:[address] [place] [phone] documented in this encounter Nursing Notes * [...] EDT Laboratory Laboratory, [address] [place] [phone] [facility] [address] [place] [address] 05/24/2025 8:00 AM EDT Laboratory Laboratory, [address] [place] [phone] Ana Laboratory [address] [place] [address] 06/01/2025 2:00 PM EDT Office Visit Hematology/Oncology [facility] [address] [facility] [phone] Maria Teresa Rizo CRNP 400 [facility] [place] [address] Scheduled Procedures Name Priority Associated Diagnoses Date/Ti [...] this encounter Medical Devices Implanted Type Area Technology Administrator Device Identifier Shelf Expiration Date Model / Serial / Lot Bard Mesh Perfix Plug Large Implanted:Qty : 1 on 04/24/2014 at OR [facility] Left: Groin 06/09/2014 [id number] / / [id number] Port Power Mri W/8fr Cath - [id number] Implanted:Qty : 1 on 07/30/2015 by Martell Osuna MD at OR [facility] Right: Internal Jugular CR BARD : PERIPHERAL VASCULAR 02/04/2017 [id number] / / [id number] documented as of this encounter Procedures Procedure [...] study not interpreted or resulted by a [employer] or [employer] contracted radiologist. Yi Montes De Oca PA-C RADIOLOGY ([facility] ) Final Result documented in this [...] the patient have Health Care Power of Men'S Garment Fitter? Yes, not currently available * Full Code Date Activated Date Inactivated Comments 10/11/2018 5:49 PM 10/11/2018 5:51 PM This order ref lects the patients wishes and were consensually agreed upon. Question Answer Comments Discussion of Advance Directives occurred with: Not Discussed Does the patient have a Living Will? Yes, not cu rrently available Does the patient have Health Care Power of Men'S Garment Fitter? Yes, not currently available * Full Code Date Activated Date Inactivated Comments 02/02/2009 12:35 PM 02/03/2009 8:43 AM This order reflects the patients wishes and were consensually agreed upon. Question Answer Comments Discussion of Advance Directives occurred with: Not Discussed Does the patient have a Living Will? No Does the patient have Health Care Power of Attor rico? No Care Teams Regulatory Affairs Assistant Relationship Specialty Start Date End Date Ran Mora MD [address] [place] [address] PCP - General 02/18/05 documented as of this encounter
--- OUTSIDE RECORDS SUMMARY | 2024-12-18 21:08 | External Medical Summary | Summary of Care ---
Author Name Unknown Organization [facility] Address [address] [place] [address] Phone [phone] Care Team Providers Care Granite Cutter Name Role Phone Ran Mora MD Primary Care Provider [phone] Reason for Visit * Reason Onset Date Comments FYI 11/01/2024 Encounter Details Date Type Department Care Team (Late st Contact Info) Description 11/01/2024 Telephone [facility] [address] [place] [address] Ran Mora MD [address] [place] [address] FYI Allergies No known active allergiesdocumented as of this encounter (statuses as of 11/02/2024) Medications aspirin enteric coated 81 MG TBEC Take 1 Tablet by mouth in the morning. 9 Active Nitroglycerin 0.4 MG Sublingual Tablet Sublingual (Nitrostat)Indic ations:Angina pectoris (HCC) One tablet under tongue if needed for chest pain. May repeat 3 times. If chest pain continues, call [phone] Tab 11 1 Active Fluticasone Propionate 50 MCG/ACT Nasal Suspension Administer 1 [place] into nostril in the morning. Active Multivitamin [...] as of this encounter (statuses as of 11/02/2024) Active Problems Problem Noted Date Diagnosed Date [...] as of this encounter (statuses as of 11/02/2024) Resolved Problems Problem Noted Date Diagnosed Date [...] Markers for Patients with Cardiovascular Disease Project #[id number] PI: Jennifer Huffman MD Please call [phone] with study related questions GENOMICS CARDIO RESEARCH OTHER*[id number] 02/02/2009 09/16/2016 Overview (11/23/2009): Renamed Per Clinical Trials Billing Project. Study Titile: Genomic Markers for Patients with Cardiovascular Disease Project #[id number] PI: Jennifer Huffman MD Please call [phone] with study related questions PAIN IN LIMB, LEFT HEEL 10/23/200504/2017 PERIAPICAL ABSCESS 07/12/2005 7 documented as of this encounter (statuses as of 11/02/2024) Immunizations Name Administration Dates Next Due COVID-19 mRNA, LNP-s, No Pre serve, 2-Dose Series ([employer]) 05/20/2021,10/29/2020,10/08/2020 Covid-19, Mrna, Lnp-s, Pf, B ivalent, 30 Mcg, IM, 12 yrs and above ([employer]) 06/11/2022 DTaP Dipth/Tet/Acell Pertussis (Infanrix), Peds 09/04/2020,05/15/2020,01/23/2020 [...] No 09/06/2024 Does the household have a [facility] source of income? 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 Pt stated his [employer] technical lead senior developer was also thinking about changing pt's medication. Pt will be in tomorrow for another BP check. He is bringing in hisfrom home to alsoget it checked. Pt would like the BP results sent to Pcp and [employer] technical lead senior developer * Telephone Encounter - Ran Mora MD [...] Care Team (Late st Contact Info) Description 11/03/2024 9:45 AM EDT Cardiac Studies Cardiac Studies, [facility] [address] [facility] [place] [address] 11/24/2024 8:00 AM EDT Office Visit Dermatology, [place] [phone] Yi Montes De Oca PA-C [address] [place] [address] [place] [address] 11/29/2024 8:00 AM EDT Laboratory Laboratory, [place] [address] [facility] [address] [place] [address] 05/24/2025 8:00 AM EDT Laboratory Laboratory, [place] [address] Ana [facility] [place] [address] 06/01/2025 2:00 PM EDT Office Visit Hematology/Oncology Rosa Elena Arreola [place] 200 [facility] [place] [address] Maria Teresa Rizo CRNP [address] [place] [address] Scheduled Orders Name Type [...] this encounter Medical Devices Implanted Type Area Supply Chain Vice President Device Identifier Shelf Expiration Date Model / Serial / Lot Bard Mesh Perfix Plug Large Implanted:Qty : 1 on 04/24/[address] [facility] Left: Groin 06/09/2014 [id number] / / [id number] Port Power Mri W/8fr Cath - [id number] Implanted:Qty : 1 on 07/30/2015 by Martell Osuna MD at OR [facility] Right: Internal Jugular CR BARD : PERIPHERAL VASCULAR 02/04/2017 [id number] / / [id number] documented as of this encounter Visit Diagnoses [...] the patient have Health Care Power of At Risk Specialist? Yes, not currently available * Full Code Date Activated Date Inactivated Comments 10/11/2018 5:49 PM 10/11/2018 5:51 PM This order ref lects the patients wishes and were consensually agreed upon. Question Answer Comments Discussion of Advance Directives occurred with: Not Discussed Does the patient have a Living Will? Yes, not cu rrently available Does the patient have Health Care Power of At Risk Specialist? Yes, not currently available * Full Code Date Activated Date Inactivated Comments 02/02/2009 12:35 PM 02/03/2009 8:43 AM This order reflects the patients wishes and were consensually agreed upon. Question Answer Comments Discussion of Advance Directives occurred with: Not Discussed Does the patient have a Living Will? No Does the patient have Health Care Power of Attor rico? No Care Teams Granite Cutter Relationship Specialty Start Date End Date Ran Mora MD [address] [place] [address] PCP - General 02/18/05 documented as of this encounter
--- OUTSIDE RECORDS SUMMARY | 2024-12-18 21:09 | External Medical Summary | Summary of Care ---
Author Name Unknown Organization [facility] Address [address] [place] [address] Phone [phone] Care Team Providers Care Jammer Operator Name Role Phone Ran Mora MD Primary Care Provider [phone] Encounter Details Date Type Department Care Team (Late st Contact Info) Description 11/01/2024 Telephone [facility] 226 [place] [address] Ran Mora MD [address] [place] [address] Allergies No known active allergiesdocumented [...] Propionate 50 MCG/ACT Nasal Suspension Administer 1 [place] into nostril in the morning. Active Multivitamin [...] Markers for Patients with Cardiovascular Disease Project #[id number] PI: Jennifer Huffman MD Please call [phone] with study related questions GENOMICS CARDIO RESEARCH OTHER*[id number] 02/02/2009 09/16/2016 Overview (11/23/2009): Renamed Per Clinical Trials Billing Project. 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 (15 years old or older) Answer Date of Assessment Author No 12/31/2018 10:10 AM EDT Jackie Lloyd RN documented as of this encounter Mental Status * Because of a physical, mental, or emotional condition, do you have serious difficulty concentrating, remembering, or making decisions? (5 years old or older) Answer Entry Date Author No 12/31/2018 10:10 AM EDT Jackie Lloyd RN documented in this encounter Miscellaneous Notes [...] Team (Late st Contact Info) Description 11/03/2024 10:00 AM EDT Nurse Only Ancillary Department, [address] [place] [phone] [place] [address] 11/24/2024 8:00 AM EDT Office Visit Dermatology, [place], [place] [phone] Yi Montes De Oca PA-C [address] [place] [address] [place] [address] 11/29/2024 8:00 AM EDT Laboratory Laboratory, [address] [place] [address] [place], Laboratory [address] [place], [place] [address] 05/24/2025 8:00 AM EDT Laboratory Laboratory, [address] [place] [address] [place], Laboratory [address] [place] [address] 06/01/2025 2:00 PM EDT Office Visit Hematology/On[facility] [phone] Maria Teresa Rizo CRNP [address] [place] [id number] Scheduled Orders Name Type Priority Associated Diagnoses [...] this encounter Medical Devices Implanted Type Area Personal Trainer Device Identifier Shelf Expiration Date Model / Serial / Lot Bard Mesh Perfix Plug Large Implanted:Qty : 1 on 04/24/2014 at OR [facility] Left: Groin 06/09/2014 [id number] / / [id number] Port Power Mri W/8fr Cath - [id number] Implanted:Qty : 1 on 07/30/2015 by Martell Osuna MD at OR [facility] Right: Internal Jugular CR BARD : PERIPHERAL VASCULAR 02/04/2017 [id number] / / [id number] documented as of this encounter Visit Diagnoses [...] the patient have Health Care Power of Fire Suppression Captain? Yes, not currently available * Full Code Date Activated Date Inactivated Comments 10/11/2018 5:49 PM 10/11/2018 5:51 PM This order ref lects the patients wishes and were consensually agreed upon. Question Answer Comments Discussion of Advance Directives occurred with: Not Discussed Does the patient have a Living Will? Yes, not cu rrently available Does the patient have Health Care Power of Fire Suppression Captain? Yes, not currently available * Full Code Date Activated Date Inactivated Comments 02/02/2009 12:35 PM 02/03/2009 8:43 AM This order reflects the patients wishes and were consensually agreed upon. Question Answer Comments Discussion of Advance Directives occurred with: Not Discussed Does the patient have a Living Will? No Does the patient have Health Care Power of Attor rico? No Care Teams Jammer Operator Relationship Specialty Start Date End Date Ran Mora MD [address] [place] [address] PCP - General 02/18/05 documented as of this encounter
--- OUTSIDE RECORDS SUMMARY | 2024-12-18 21:09 | External Medical Summary | Summary of Care ---
Author Name Unknown Organization [facility] Address [address] [place] [address] Phone [phone] Care Team Providers Care Plant Health Manager Name Role Phone Ran Mora MD Primary Care Provider [phone] Reason for Visit * Reason Comments Follow Up Encounter Details Date Type Department Care Team (Late st Contact Info) Description 10/31/2024 8:00 AM EDT Office Visit Cardiology, [facility] [address] [place] [id number] Ran Powell, PATatianaC [address] [place] [address] HTN, goal below 130/80*; Dyslipidemia, goal LDL below 70; Chronic ischemic heart disease; S/P angioplasty with stent; History of tobacco use Allergies No known active allergiesdocumented as of this encounter (statuses as of 11/01/2024) Medications aspirin enteric coated 81 MG TBEC Take 1 Tablet by mouth in the morning. 9 Active Nitroglycerin 0.4 MG Sublingual Tablet Sublingual (Nitrostat)Indic ations:Angina pectoris (HCC) One tablet under tongue if needed for chest pain. May repeat 3 times. If chest pain continues, call [phone] Tab 11 1 Active Fluticasone Propionate 50 MCG/ACT Nasal Suspension Administer 1 [place] into nostril in the morning. Active Multivitamin [...] 7:12 AM EST 5 10/11/19 26 Active documented as of this encounter (statuses as of 11/01/2024) Active Problems Problem Noted Date Diagnosed Date [...] as of this encounter (statuses as of 11/01/2024) Resolved Problems Problem Noted Date Diagnosed Date [...] Markers for Patients with Cardiovascular Disease Project #[id number] PI: Jennifer Huffman MD Please call [phone] with study related questions GENOMICS CARDIO RESEARCH OTHER*[id number] 02/02/2009 09/16/2016 Overview (11/23/2009): Renamed Per Clinical Trials Billing Project. Study Titile: Genomic Markers for Patients with Cardiovascular Disease Project #[id number] PI: Jennifer Huffman MD Please call [phone] with study related questions PAIN IN LIMB, LEFT HEEL 10/23/2005 06/04/2017 PERIAPICAL ABSCESS 07/12/2005 7 documented as of this encounter (statuses as of 11/01/2024) Immunizations Name Administration Dates Next Due COVID-19 mRNA, LNP-s, No Pre serve, 2-Dose Series (DrAvailable) 05/20/2021,10/29/2020,10/08/2020 Covid-19, Mrna, Lnp-s, Pf, B ivalent, 30 Mcg, IM, 12 yrs and above (DrAvailable) 06/11/2022 DTaP Dipth/Tet/Acell Pertussis (Infanrix), Peds 09/04/2020,05/15/2020,01/23/2020 [...] Tobacco: Former Cigars Smokeless Tobacco: Current Snuff Tobacco Cessation:Ready to Q uit: Not Asked; Counseling Given: Not Answered Comments:1 can every 2 days Alcohol Use [...] No 09/06/2024 Does the household have a [facility] source of income? (Household - [...] Industry Job Start Date Job End Date [employer] Not on file Not on file Not on file documented as of this encounter Last Filed Vital Signs Vital Sign Reading Time Taken Comments Blood Pressure 144/84 10/31/2024 7:45 AM EDT Pulse 64 10/31/2024 7:45 AM EDT Temperature - - Respiratory Rate 12 10/31/2024 7:45 AM EDT Oxygen Saturation - - Inhaled Oxygen Concentration - - Weight 92.1 kg (203 lb) 10/31/2024 7:45 AM EDT Height - - Body Mass Index 31.79 09/08/2024 8:56 AM EST documented in this [...] documented in this encounter Progress Notes * Ran Powell PA-C - 10/31/2024 8:00 AM EDT History of Present Illness: Wyatt Aviles is a 69 year old male who returns today for routine Cardiology follow-up. Transfer Iron Operator is Dr. Ashby. Patient returns today feeling well from a cardiac standpoint. Notes switching from the treadmill to walking outside, 3.5 miles on Mondays, Wednesdays, and Fridays without difficulty. 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 No chest pain or discomfort. No tachypalpitations. No new or worsening shortness of breath. No fluid retention, chronically feeling dehydrated. No near syncope or syncope. No melena or hematochezia. Nocturia x1. Problem list: Atherosclerotic coronary disease status post PTCA and stent of the left anterior descending with drug-eluting stent in January of 2009 for exertional angina. Documented poor tolerance to beta pj therapy Hypertension. Hyperlipidemia. History of right pontine stroke treated with thrombolytic therapy August of 2004. Non-Hodgkin lymphoma 05/2015. 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 difficile diarrhea 01/19/2019 NOTED 01/19/19 HISTORICAL Cerebrovascular event, ill-defined, within last 8 weeks 08/14 left sided paralysis - nearly completely resolved/ TPA Chronic ischemic heart disease 02/05/2009 Dehydration 10/27/2018 NOTED 10/27/18 HISTORICAL DLBCL (diffuse large B cell lymphoma) (HCC) 07/20/2015 HTN, goal below 130/80 10/23/2005 HTN, goal below 140/90 Hypothyroidism due to acquired atrophy of thyroid 02/27/2015 S/P angioplasty with stent 02/02/2009 Past Surgical History: Procedure Laterality Date CATHETERIZE LEFT HEART THRU SKIN 02/02/2009 LEFT HEART CATH, PERCUTANEOUS performed by CEZAR RG at [facility] COLONOSCOPY W/ BIOPSY (RECTUM) 05/2008 repeat 5-10 yrs COLONOSCOPY, DIAGNOSTIC (RECTUM) 06/18/2018 adenomatous polyp, diverticulosis, repeat 5 yrs/COLONOSCOPY FLEXIBLE PROXIMAL DIAGNOSTIC performed by Rudy Pérez MD at ENDOSCOPY [facility] COLONOSCOPY, DIAGNOSTIC (RECTUM) 09/02/2023 biopsies show adenomatous polyps/recall 5 years/COLONOSCOPY FLEXIBLE PROXIMAL DIAGNOSTIC performed by Annia Hinkle MD at ENDOSCOPY [facility] EGD, FLEXIBLE, DIAGNOSTIC 06/04/2015 ESOPHAGOGASTRODUODENOSCOPY (EGD), FLEXIBLE, TRANSORAL, DIAGNOSTIC performed by Diomedes Bernabe MD at ENDOSCOPY [facility] EGD, W/ENDOSCOPIC US 06/04/2015 Cytology is consistent/suspicious for b-cell lymphoma EGD, W/ENDOSCOPIC US 06/04/2015 ESOPHAGOGASTRODUODENOSCOPY (EGD), FLEXIBLE, TRANSORAL, ENDOSCOPIC ULTRASOUND performed by Diomedes Caro MD at ENDOSCOPY [facility] HC REMOVAL OF TUNNELED CENTRAL VENOUS ACCESS DEVICE, W SUBCUT PORT OR PUMP CENTRAL OR PERIPH INSERTLeft 05/31/2020 INFORMATION Right 09/03/2016 09/03/2016 removal of a -port - office procedure - Dr. Martell Osuna INJECTION LUMBAR/SACRAL 09/27/2014 INJECTION SPINE LUMBAR OR SACRAL performed by Bautista Lopez DO at OR [facility] INSER TUNN ACC DEV;5 YRS/OLDER N/A 07/30/2015 INSERT TUNNELED CENTRAL VENOUS ACCESS WITH SUBQ PORT performed by Martell Osuna MD at [facility] LAPAROSCOPY; CHOLECYSTECTOMY 10/2002 LAPAROSCOPY; REPAIR INITIAL INGUINAL HERNIA 08/11/2013 Laparoscopic repair of bilateral inguinal hernia with mesh type of procedure 08/11/13 Dr. David [facility] Turbine Engine Assembler Irvin Noriega PA-C PATIENT HAS A CORONARY ARTERY STENT Frost stent REPAIR INITIAL INGUINAL HERNIA REDUCIBLE AGE 5 OR MORE 04/24/2014 REPAIR INITIAL INGUINAL HERNIA REDUCIBLE AGE 5 OR MORE performed by Amari David MD at OR [facility] Family History Problem Relation Name Age of Onset Heart Disorder Father cezar Cancer Father cezar Social History Tobacco Use Smoking status: Former Types: Cigars Smokeless tobacco: Current Types: Snuff Tobacco comments: 1 can every 2 days Vaping Use Vaping status: Not on file Substance Use Topics Alcohol use: No Drug use: No Complete Review of Systems is as stated above, negative, or noncontributory. Review of patient's allergies indicates: No Known Allergies Current Outpatient Medications Medication Sig Dispense Refill aspirin enteric coated 81 MG TBEC Take 1 Tablet by mouth in the morning. Nitroglycerin 0.4 MG Sublingual Tablet Sublingual (Nitrostat) One tablet under tongue if needed forchest pain. May repeat 3 times. If chest pain continues, call [phone] Tab 11 Fluticasone Propionate 50 MCG/ACT Nasal Suspension Administer 1 [place] into nostril in the morning. Multivitamin Adult [...] DAY OR OTHER MEDICATIONS 90 Tablet 0 Lisinopril 20 MG Oral Tablet (Prinivil) Take 1 Tablet by mouth in the morning. 100 Tablet 3 Rosuvastatin Calcium 40 MG Oral Tablet (Crestor) TAKE ONE TABLET BY MOUTH DAILY 90 Tablet 0 No current facility-administered medications for this visit. OBJECTIVE/PHYSICAL EXAMINATION: BP 144/84 (BP Site: Left Arm, BP Position: Sitting, BP Cuff Size: Large) | Pulse 64 | Resp 12 | Wt 92.1 kg (203 lb) | BMI 31.79 kg/m² | BSA 2.09 m² Blood pressure my evaluation was 144/84, equal in both arms General: A&Ox3. NAD. HENT: Normocephalic. Atraumatic. Eyes: PER. Conjunctiva pink, sclera clear. Neck: No carotid bruits. No JVD. No HJR. Heart: RRR, 64 bpm. No murmur. No rub. No gallop. Lungs: Clear to auscultation. Abdomen: +BS. Soft. Nontender. No masses or organomegaly. Extremities: No clubbing, cyanosis, or edema. Limited neurological examination is without focal deficits. Pulses: radial=2/4 on the left, 0-1/4 on the right. Posterior tibial=3/4 bilaterally Data: March 17, 2017 FLAKO Interpretation Summary (as per Dr. Ashby): The stress echo is negative for inducible ischemia. Exercise capacity is above average. Heart rate response to stress was normal. The stress EKG response showed no evidence of ischemia. Occasional PVCs were noted with stress. The left ventricular wall motion is normal. The left ventricular wall motion with stress is normal. The left ventricular ejection fraction increases normally with stress. The left ventricular systolic function is normal. The qualitative LV ejection fraction is 55-59% (normal). No significant valvular disease is present. November 25, 2018 TTE Interpretation Summary (as per Dr. Sawant): The LV wall thickness is mildly increased (concentric). The left ventricular wall motion is normal. The qualitative LV ejection fraction is 60-64% (normal). There is no significant valvular heart disease. Lipid Panel Results: Results for orders placed or performed in visit on 10/12/24 LIPID PANEL WITH DIRECT LDL IF TG IS HIGH Result Value Ref Range Triglycerides 142 <=174 mg/dL Cholesterol 129 <200 mg/dL HDL Cholesterol 35 (L) >39 mg/dL Non-HDL Cholesterol 94 <=159 mg/dL LDL Cholesterol 66 <=129 mg/dL IMPRESSION: 69 year old male with atherosclerotic coronary disease status post PTCA and stenting ofthe left anterior descending with drug-eluting stent in January of 2009 for exertional angina, single vessel coronary disease. Lipids well controlled. Blood pressure elevated today, previously well controlled. Non pharmacologic treatment of hypertension discussed including dietary salt restriction, weight loss, aerobic exercise, avoiding NSAIDs, etc. Patient to monitor blood pressure at home as wellas schedule a nurse visit in [place] for blood pressure check with home monitors to ensure accuracy. If blood pressure is persistently elevated would increase amlodipine dosing. Patient with past poor tolerance to beta-pj therapy. Likely best to avoid thiazide diuretic noting limited fluid intake. Hydration encouraged. Routine cardiology follow-up in 6 months or as needed. Ran Powell PA-C Department of Cardiology I spent a total of 20-29 minutes (exact time 25 mins) on the date of service in preparation, delivery, and documentation of the care provided to Wyatt Aviles excluding any time spent in the performance of separately billed services. This visit involved medical care services related to at least one serious condition or complex condition requiring ongoing care. This chart was completed in part utilizing [employer] Speech Voice Recognition Software. Grammatical errors, random word insertions, prounoun errors, and incomplete sentences are an occasional consequence of this system due to software limitations, ambient noise, and hardware issues. Any formal questions or concerns about the content, text, or information contained within the body of this dictation should be directly addressed to the provider for clarification. documented in this encounter Nursing Notes * Tena Lang CMA - 10/31/2024 7:48 AM EDT Examination Room: 3 Name: Wyatt Aviles Date of : (1955). Reason for Visit: 8M f/u Interim Hospitalization(s): none Problems/Concerns: denies Chest Pain/SOB: denies [facility] Discussed: No My [facility] is a way you can talk to your provider online through e-mail. Would you like to sign up? I can activate it for you? ALREADY ACTIVE Patient was instructed to not get up on the exam table until directed and assisted by their provider; patient is to remain seated in the chair/ wheelchair/ exam table for fall prevention and safety reasons. Patient is aware to have assistance to step down off exam table with personnel. Patient voiced full comprehension of instructions. documented in this encounter Plan of Treatment Upcoming Encounters Date Type Department Care Team (Late st Contact Info) Description 11/01/2024 1:00 PM EDT Nurse Only Ancillary Department, [address] [facility] [address] [place] [phone] [facility] [address] [place] [place] [address] 11/24/2024 8:00 AM EDT Office Visit Dermatology, [facility] [address] [place] [phone] Yi Montes De Oca PA-C [address] [place] [address] [place] [address] 11/29/2024 8:00 AM EDT Laboratory Laboratory, [place] [phone] [facility] [place] [address] 05/24/2025 8:00 AM EDT Laboratory Laboratory, [facility] [address] [place] [phone] [facility] [address] [place] [place] [address] 06/01/2025 2:00 PM EDT Office Visit H[facility]ology[facility] [place] [address] [facility] [phone] Maria Teresa Rizo CRNP [address] [facility] [place] [address] Scheduled Procedures Name Priority Associated Diagnoses [...] this encounter Medical Devices Implanted Type Area Oral Communication Instructor Device Identifier Shelf Expiration Date Model / Serial / Lot Bard Mesh Perfix Plug Large Implanted:Qty : 1 on 04/24/2014 at OR [facility] Left: Groin 06/09/2014 [id number] / / [id number] [employer] Mri W/8fr Cath - [id number] Implanted:Qty : 1 on 07/30/2015 by Martell Osuna MD at OR [facility] Right: Internal Jugular CR BARD : PERIPHERAL VASCULAR 02/04/2017 [id number] / / [id number] documented as of this encounter Visit Diagnoses Diagnosis HTN, goal below 130/80- Primary Unspecified essential hypertension Dyslipidemia, goal LDL below 70 Other and unspecified hyperlipidemia Chronic ischemic heart disease Chronic ischemic heart disease, unspecified S/P angioplasty with stent Postsurgical percutaneous transluminal coronary angioplasty status History of tobacco use Personal history of tobacco use, presenting hazards to health documented in this encounter Advance Directives * [...] the patient have Health Care Power of Nurse Rn Bsn? Yes, not currently available * Full Code Date Activated Date Inactivated Comments 10/11/2018 5:49 PM 10/11/2018 5:51 PM This order ref lects the patients wishes and were consensually agreed upon. Question Answer Comments Discussion of Advance Directives occurred with: Not Discussed Does the patient have a Living Will? Yes, not cu rrently available Does the patient have Health Care Power of Nurse Rn Bsn? Yes, not currently available * Full Code Date Activated Date Inactivated Comments 02/02/2009 12:35 PM 02/03/2009 8:43 AM This order reflects the patients wishes and were consensually agreed upon. Question Answer Comments Discussion of Advance Directives occurred with: Not Discussed Does the patient have a Living Will? No Does the patient have Health Care Power of Attor rico? No Care Teams Plant Health Manager Relationship Specialty Start Date End Date Ran Mora MD [address] [place] [address] PCP - General 02/18/05 documented as of this encounter"
--- OUTSIDE RECORDS SUMMARY | 2024-12-18 21:09 | External Medical Summary | Summary of Care ---
Author Name Unknown Organization [facility] Address [address] [place] [address] Phone [phone] Care Team Providers Care Sushi Chef Name Role Phone Dong Mora MD Primary Care Provider [phone] Reason for Visit * Reason Comments Medication Refill Encounter Details Date Type Department Care Team (Late st Contact Info) Description 09/19/2024 Refill [facility] [address] [facility] [place] [address] Iliana Lord MD [address] [place], [place] [phone] Allergies No known active allergiesdocumented as of this encounter (statuses as of 09/20/2024) Medications aspirin enteric coated 81 MG TBEC Take 1 Tablet by mouth in the morning. 9 Active Nitroglycerin 0.4 MG Sublingual Tablet Sublingual (Nitrostat)Leticia cations:Angina pectoris (HCC) One tablet under tongue if needed for chest pain. May repeat 3 times. If chest pain continues, call [phone] Tab 11 1 Active Fluticasone Propionate 50 MCG/ACT Nasal Suspension Administer 1 [place] into nostril in the morning. Active Multivitamin [...] morning and 1 Tablet before bedtime. Active Rosuvastatin Calcium 40 MG Oral Tablet (Crestor)Indica tions:HTN, goal below 130/80,Dyslipid emia, goal LDL below 70 TAKE ONE TABLET BY MOUTH DAILY 90 Tablet 3 07/12/2024 4:40 PM EST 4 025 Active Omeprazole 40 MG Oral Capsule Delayed [...] BY MOUTH EVERY DAY 90 Tablet 3 06/22/2024 1:52 PM EST 4 025 Active Levothyroxine Sodium 100 MCG Oral Tablet (Levoxyl)Indica tions:Hypothyro idism due to acquired atrophy of thyroid TAKE 1 TABLET BY MOUTH DAILY AT LEAST 30 MINUTES PRIOR TO FIRST MEAL OF THE DAY OR OTHER MEDICATIONS 90 Tablet 09/06/2024 3:06 PM EST 5 026 Active Lisinopril 20 MG Oral Tablet (Prinivil) Take 1 Tablet by mouth in the morning. 100 Tablet 3 5 Active Lisinopril 20 MG Oral Tablet (Prinivil) Take 1 Tablet by mouth in the morning. 90 Tablet 3 06/28/2024 7:56 AM EST 4 025 Discontin ued(Refil l) documented as of this encounter (statuses as of 09/20/2024) Active Problems Problem Noted Date Diagnosed Date [...] as of this encounter (statuses as of 09/20/2024) Resolved Problems Problem Noted Date Diagnosed Date [...] Markers for Patients with Cardiovascular Disease Project #[id number] PI: Jennifer Huffman MD Please call [phone] with study related questions GENOMICS CARDIO RESEARCH OTHER*[id number] 02/02/2009 09/16/2016 Overview (11/23/2009): Renamed Per Clinical Trials Billing Project. Study Titile: Genomic Markers for Patients with Cardiovascular Disease Project #[id number] PI: Jennifer Huffman MD Please call [phone] with study related questions PAIN IN LIMB, LEFT HEEL 10/23/2005 0604/2017 PERIAPICAL ABSCESS 07/12/2005 7 documented as of this encounter (statuses as of 09/20/2024) Immunizations Name Administration Dates Next Due COVID-19 mRNA, LNP-s, No Pre serve, 2-Dose Series ([place]ie) 05/20/2021,10/29/2020,10/08/2020 Covid-19, Mrna, Lnp-s, Pf, B ivalent, 30 Mcg, IM, 12 yrs and above ([place]ie) 06/11/2022 DTaP Dipth/Tet/Acell Pertussis (Infanrix), Peds 09/04/2020,05/15/2020,01/23/2020 [...] 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 Not on file Not on file [...] 12/31/2018 10:10 AM Jackie Norton, CRIS * Because of a physical, mental, or [...] encounter Miscellaneous Notes * Telephone Encounter - Criselda Garcia [facility] - 09/19/2024 4:09 PM ESTSigned Prescriptions: Disp Refills Lisinopril 20 MG Oral Tablet (Prinivil) 100 Ta*3 Sig: Take 1 Tablet by mouth in the morning.Authorizing Provider: DONG MORA User: CRISELDA GARCIA---- documented in this encounter Plan of Treatment Upcoming Encounters Date Type Department Care Team (Late st Contact Info) Description 10/18/2024 10:30 AM EDT Office Visit [facility] [address] [place] [address] Emile Wisdom MD [address] [place] [phone] 10/26/2024 8:30 AM EDT [facility] [place] [address] [place] [phone] Emile Wisdom MD [address] [place] [phone] 10/31/2024 8:00 AM EDT Office Visit Cardiology, [facility] [address] [place] [address] Dong Powell PA-C [address] [place] [address] 11/07/2024 11:30 AM EDT Office Visit Orthopaedics [facility] [address] [place] [phone] Emile Wisdom MD [address] [place] [phone] 11/24/2024 8:00 AM EDT Office Visit Dermatology, [address]upinder [place] [phone] Yi Montes De Oca PA-C [address] [place] [address] [place] [address] 11/29/2024 8:00 AM EDT Laboratory Laboratory, [place] [address] [place] [phone] [place], Laboratory [address] [place] [address] 05/24/2025 8:00 AM EDT Laboratory Laboratory, [address] [place] [phone] [place] [facility] [address] [place] [address] 06/01/2025 2:00 PM EDT Office Visit Hematology/Oncology [facility] [address] [facility] [place], [place] [address] Maria Teresa Rizo CRNP [address] [place] [address] Scheduled Procedures Name Priority Associated Diagnoses Date/Ti me COLONOSCOPY FLEXIBLE PROXIMA L DIAGNOSTIC Recall History of colonic polyps Health Maintenance Due Date Last Done Comments Cologuard 2002 Fecal Occult Blood Test 2002 Sigmoidoscopy 2002 Adult Wellness Visit 10/18/2023 COVID-19 Vaccine ( season) 2024 06/11/2022, 05/20/2021, 10/29/2020, Additional history exists GFR 05/24/2025 05/24/2024, 04/0 08/2023, 04/27/2023, Additional history exists TSH 06/09/2025 06/09/2024, 04/10, 04/21/2022, Additional history exists Pneumococcal Vaccine: 50+ Years (4 of 4 - PCV20 or PCV21) 09/04/2025 09/04/2020, 01/23/2020, 09/07/2019, Additional history exists Depression Screening 09/08/2025 09/08/2024 Albumin/Creatinine Ratio 12/11/20252 023, 03/31/2018, 09/16/2017 Diabetes Screening 05/24/2027 05/24/2024, 0 11/09/2023, 04/27/2023, Additional history exists Colonoscopy 09/02/2028 09/02/2023, 08/11, 06/18/2018, Additional history exists Colorectal Cancer Screening 09/02/2028 DTap/Tdap Vaccines (5 - Td or Tdap) 09/04/2030 09/04/2020, 05/15/2020, 01/23/2020, Additional history exists Zoster Vaccines Completed 09/07/2019, 12/0 09/2018, 03/31/2018 MENINGOCOCCAL (MENACTRA/MENVEO) Aged Out 05/01/2020, [...] this encounter Medical Devices Implanted Type Area Process Development Engineer Device Identifier Shelf Expiration Date Model / Serial / Lot Bard Mesh Perfix Plug Large Implanted:Qty : 1 on 04/24/2014 at OR [facility] Left: Groin 06/09/2014 [id number] / / [id number] Port Power Mri W/8fr Cath - [id number] Implanted:Qty : 1 on 07/30/2015 by Martell Osuna MD at OR [facility] Right: Internal Jugular CR BARD : PERIPHERAL VASCULAR 02/04/2017 [id number] / / [id number] documented as of this encounter Advance Directives [...] Health Care Power of Attor rioc? No * Full Code Date Activated Date [...] the patient have Health Care Power of Real Estate Sales Supervisor? Yes, not currently available * Full Code Date Activated Date Inactivated Comments 10/11/2018 5:49 PM 10/11/2018 5:51 PM This order ref lects the patients wishes and were consensually agreed upon. Question Answer Comments Discussion of Advance Directives occurred with: Not Discussed Does the patient have a Living Will? Yes, not cu rrently available Does the patient have Health Care Power of Real Estate Sales Supervisor? Yes, not currently available * Full Code Date Activated Date Inactivated Comments 02/02/2009 12:35 PM 02/03/2009 8:43 AM This order reflects the patients wishes and were consensually agreed upon. Question Answer Comments Discussion of Advance Directives occurred with: Not Discussed Does the patient have a Living Will? No Does the patient have Health Care Power of Attor rico? No Care Teams Sushi Chef Relationship Specialty Start Date End Date Dong Mora MD PCP - General 02/18/05 documented as of this encounter
--- OUTSIDE RECORDS SUMMARY | 2024-12-18 21:09 | External Medical Summary | Summary of Care ---
Author Name Unknown Organization [facility] Address [address] [place] [address] Phone [phone] Care Team Providers Care Humanities Teacher Name Role Phone Ran Mora MD Primary Care Provider [phone] Encounter Details Date Type Department Care Team (Late st Contact Info) Description 11/01/2024 1:00 PM EDT Nurse Only Ancillary Department, [place] Kelly Morteza [address] [facility] [place] [address] [place], Nurse [address] [place] [address] Arrived Allergies No known active allergiesdocumented as of this encounter (statuses as of 11/01/2024) Medications aspirin enteric coated 81 MG TBEC Take 1 Tablet by mouth in the morning. 9 Active Nitroglycerin 0.4 MG Sublingual Tablet Sublingual (Nitrostat)Indic ations:Angina pectoris (HCC) One tablet under tongue if needed for chest pain. May repeat 3 times. If chest pain continues, call [phone] Tab 11 1 Active Fluticasone Propionate 50 MCG/ACT Nasal Suspension Administer 1 [place] into nostril in the morning. Active Multivitamin [...] Markers for Patients with Cardiovascular Disease Project #[id number] PI: Jennifer Huffman MD Please call [phone] with study related questions GENOMICS CARDIO RESEARCH OTHER*[id number] 02/02/2009 09/16/2016 Overview (11/23/2009): Renamed Per Clinical Trials Billing Project. 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 B/P 154/77 Pulse 62 BP Readings from Last 4 Encounters: 10/31/24 144/84 09/08/24 122/82 05/31/24 122/60 04/26/24 128/74 Please advise. Telephone encounter made about this visit to provider. Patient aware that our office will call them back if there is a change with their medication or treatment, otherwise, no phone call will be made back to the patient. documented in this encounter Plan of Treatment Upcoming Encounters Date Type Department Care Team (Late st Contact Info) Description 11/03/2024 10:00 AM EDT Nurse Only Ancillary Department, [place] [phone] [place] Nurse [place] [address] 11/24/2024 8:00 AM EDT Office Visit Dermatology, [place] [phone] Yi Montes De Oca PA-C [address] [place] [address] [place] [address] 11/29/2024 8:00 AM EDT Laboratory Laboratory, [place] [address] [place], [place] [address] [place], Laboratory [address] [place], [place] [address] 05/24/2025 8:00 AM EDT Laboratory Laboratory, [place] [address] [place], [place] [address] [place], Laboratory [address] [place], [place] [address] 06/01/2025 2:00 PM EDT Office Visit Hematology/Oncology [facility] [address] [phone] Maria Teresa Rizo CRNP [address] [facility] [place] [address] Scheduled Procedures Name Priority Associated Diagnoses Date/Ti [...] this encounter Medical Devices Implanted Type Area Hobber Device Identifier Shelf Expiration Date Model / Serial / Lot Bard Mesh Perfix Plug Large Implanted:Qty : 1 on 04/24/2014 at OR [facility] Left: Groin 06/09/2014 [id number] / / [id number] Port Power Mri W/8fr Cath - [id number] Implanted:Qty : 1 on 07/30/2015 by Martell Osuna MD at OR [facility] Right: Internal Jugular CR BARD : PERIPHERAL VASCULAR 02/04/2017 [id number] / / [id number] documented as of this encounter Advance Directives [...] the patient have Health Care Power of Supervisor [place]? Yes, not currently available * Full Code Date Activated Date Inactivated Comments 10/11/2018 5:49 PM 10/11/2018 5:51 PM This order ref lects the patients wishes and were consensually agreed upon. Question Answer Comments Discussion of Advance Directives occurred with: Not Discussed Does the patient have a Living Will? Yes, not cu rrently available Does the patient have Health Care Power of Supervisor [place]? Yes, not currently available * Full Code Date Activated Date Inactivated Comments 02/02/2009 12:35 PM 02/03/2009 8:43 AM This order reflects the patients wishes and were consensually agreed upon. Question Answer Comments Discussion of Advance Directives occurred with: Not Discussed Does the patient have a Living Will? No Does the patient have Health Care Power of Attor rico? No Care Teams Humanities Teacher Relationship Specialty Start Date End Date Ran Mora MD [address] [place] [address] PCP - General 02/18/05 documented as of this encounter
--- OUTSIDE RECORDS SUMMARY | 2024-12-18 21:09 | External Medical Summary | Summary of Care ---
Author Name Unknown Organization [facility] Address [address] [place] [address] Phone [phone] Care Team Providers Care Knitting Machine Fixer Name Role Phone Ran Mora MD Primary Care Provider Reason for Visit * Reason Comments Follow Up Patient is here toda y for a routine follow up. Patient states that he has a rash on the back of his legs bilaterally that has been present for at least a year, at times does itch. Encounter Details Date Type Department Care Team (Late st Contact Info) Description 09/08/2024 9:00 AM EST Office Visit [facility] [address] [facility] [place] [place] [address] Ran Mora MD [address] [place] [address] HTN, goal below 130/80*; History of lymphoma; Hypothyroidism due to acquired atrophy of thyroid Allergies No known active allergiesdocumented as of this encounter (statuses as of 09/11/2024) Medications aspirin enteric coated 81 MG TBEC Take 1 Tablet by mouth in the morning. 9 Active Nitroglycerin 0.4 MG Sublingual Tablet Sublingual (Nitrostat)Indic ations:Angina pectoris (HCC) One tablet under tongue if needed for chest pain. May repeat 3 times. If chest pain continues, call [phone] Tab 11 1 Active Fluticasone Propionate 50 MCG/ACT Nasal Suspension Administer 1 [place] into nostril in the morning. Active [...] morning and 1 Tablet before bedtime. Active Lisinopril 20 MG Oral Tablet (Prinivil) Take 1 Tablet by mouth in the morning. 90 Tablet 3 06/28/2024 7:56 AM EST 4 Active Rosuvastatin Calcium 40 MG Oral Tablet (Crestor)Indicat ions:HTN, goal below 130/80,Dyslipide susanna, goal LDL below 70 TAKE ONE TABLET BY MOUTH DAILY 90 Tablet 3 07/12/2024 4:40 PM EST 4 10/19/19 25 Active Omeprazole 40 MG Oral Capsule Delayed [...] Tablet 3 06/22/2024 1:52 PM EST 4 06/19/20 25 Active Levothyroxine Sodium 100 MCG Oral Tablet (Levoxyl)Indicat ions:Hypothyroid ism due to acquired atrophy of thyroid TAKE 1 TABLET BY MOUTH DAILY AT LEAST 30 MINUTES PRIOR TO FIRST MEAL OF THE DAY OR OTHER MEDICATIONS 90 Tablet 09/06/2024 3:06 PM EST 5 09/01/19 26 Active documented as of this encounter (statuses as of 09/11/2024) Active Problems Problem Noted Date Diagnosed Date [...] as of this encounter (statuses as of 09/11/2024) Resolved Problems Problem Noted Date Diagnosed Date [...] Markers for Patients with Cardiovascular Disease Project #[id number] PI: Jennifer Huffman MD Please call [phone] with study related questions GENOMICS CARDIO RESEARCH OTHER*[id number] 02/02/2009 09/16/2016 Overview (11/23/2009): Renamed Per Clinical Trials Billing Project. Study Titile: Genomic Markers for Patients with Cardiovascular Disease Project #[id number] PI: Jennifer Huffman MD Please call [phone] with study related questions PAIN IN LIMB, LEFT HEEL 10/23/200504/2017 PERIAPICAL ABSCESS 07/12/2005 7 documented as of this encounter (statuses as of 09/11/2024) Immunizations Name Administration Dates Next Due COVID-19 mRNA, LNP-s, No Pre serve, 2-Dose Series (Checkd.In) 05/20/2021,10/29/2020,10/08/2020 Covid-19, Mrna, Lnp-s, Pf, B ivalent, 30 Mcg, IM, 12 yrs and above (Checkd.In) 06/11/2022 DTaP Dipth/Tet/Acell Pertussis (Infanrix), Peds 09/04/2020,05/15/2020,01/23/2020 [...] ages 0-17 years) Not on file 09/06/2024 Sex and Gender Information Value Date Recorded Sex Assigned at Male 04/27/2019 5:56 PM EDT Legal Sex Male 7:10 AM EST Gender Identity Male 04/27/2019 5:56 PM EDT Sexual Orientation Straight 04/27/2019 5: 56 PM EDT 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 Not on file Not on file documented as of this encounter Last Filed Vital Signs Vital Sign Reading Time Taken Comments Blood Pressure 122/82 09/08/2024 8:56 AM EST Pulse 68 09/08/2024 8:56 AM EST Temperature 35.7 °C (96.3 °F) 09/08/2024 8:56 AM ES T Respiratory Rate 16 09/08/2024 8:56 AM EST Oxygen Saturation 98% 09/08/2024 8:56 AM EST Inhaled Oxygen Concentration - - Weight 92.5 kg (203 lb 14.4 oz) 09/08/2024 8:56 AM EST Height 170.2 cm (5' 7") 09/08/2024 8:56 AM EST Body Mass Index 31.94 09/08/2024 8:56 AM EST documented in this [...] in this encounter Progress Notes * Ran Mora MD - 09/11/2024 8:29 AM EST Pt left before seen documented in this encounter Nursing Notes * Soo Oro LPN - 09/08/2024 9:00 AM EST The patient has been properly identified by confirmation of name and date of . Chief Complaint Patient presents with Follow Up Patient is here today for a routine follow up. Patient states that he has a rash on the back of his legs bilaterally that has been present for at least a year, at times does itch. documented in this encounter Plan of Treatment Upcoming Encounters Date Type Department Care Team (Late st Contact Info) Description 10/18/2024 10:30 AM EDT Office Visit Orthopaedics [facility] [address] [place] [phone] Emile Wisdom MD [address] [place] [phone] 10/25/2024 10:30 AM EDT Office Visit Orthopaedics [facility] [address] [place] [phone] Emile Wisdom MD [address] [place] [phone] 10/31/2024 8:00 AM EDT Office Visit Cardiology, [facility] [address] [place] [address] Ran Powell PATatianaC [address] [place] [address] 11/24/2024 8:00 AM EDT Office Visit Dermatology, [place] [address] [phone] Yi Montes De Oca PA-C [address] [place] [address] [place] [address] 11/29/2024 8:00 AM EDT [place] [address] [phone] [place] [facility] [address] [place] [address] 05/24/2025 8:00 AM EDT Laboratory Laboratory, [place] [address] [place] [phone] [place] [facility] [address] [place] [address] 06/01/2025 2:00 PM EDT Office Visit Hematology/Oncology [place] 200 [facility] [place] [address] Maria Teresa Rizo CRNP [address] [place] [address] Scheduled Procedures Name Priority Associated Diagnoses Date/Ti [...] exists Depression Screening 09/08/2025 09/08/2024 Albumin/Creatinine Ratio 12/11/2025 023, 03/31/2018, 09/16/2017 Diabetes Screening 05/24/2027 05/24/2024, [...] this encounter Medical Devices Implanted Type Area Equipment Processor Device Identifier Shelf Expiration Date Model / Serial / Lot Bard Mesh Perfix Plug Large Implanted:Qty : 1 on 04/24/2014 at OR [facility] Left: Groin 06/09/2014 [id number] / / [id number] Port Power Mri W/8fr Cath - [id number] Implanted:Qty : 1 on 07/30/2015 by Martell Osuna MD at OR 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 Yes, not currently available * Full Code Date Activated Date Inactivated Comments 10/11/2018 5:49 PM 10/11/2018 5:51 PM This order ref lects the patients wishes and were consensually agreed upon. Question Answer Comments Discussion of Advance Directives occurred with: Not Discussed Does the patient have a Living Will? Yes, not cu rrently available Does the patient have Health Care Power of Health Education Teacher? Yes, not currently available * Full Code Date Activated Date Inactivated Comments 02/02/2009 12:35 PM 02/03/2009 8:43 AM This order reflects the patients wishes and were consensually agreed upon. Question Answer Comments Discussion of Advance Directives occurred with: Not Discussed Does the patient have a Living Will? No Does the patient have Health Care Power of Attor rico? No Care Teams Knitting Machine Fixer Relationship Specialty Start Date End Date Ran Mora MD PCP - General 02/18/05 documented as of this encounter
--- OUTSIDE RECORDS SUMMARY | 2024-12-18 21:09 | External Medical Summary ---
Author Name Unknown Address Unknown Organization K01:LABORATORY [facility] - [address] [facility] [place] [address] Laboratory Report Ordering Provider Test Date Status JOSE A CONTRERAS 10/12/2024 08:55:04 Final Observation Date Value Abnormality Reference (Units ) Status BUN 10/12/2024 08:55:04 23 Above high normal 6-20 (mg/dL) Final Creatinine 10/12/2024 08:55:04 1.2 0.6-1.2 (mg/dL) Final Glomerular filtration rate/1.73 sq M.predicted [Volume Rate/Area] in Serum, Plasma or Blood by Creatinine-based formula (CKD-EPI) 10/12/2024 08:55:04 69 >=60 (mL/min) Final eGFR is calculated based on the CKD-EPI 2020 equation. Sodium 10/12/2024 08:55:04 141 135-146 (m mol/L) Final Potassium 10/12/2024 08:55:04 4.1 3.5-5.1 (m mol/L) Final Cl 10/12/2024 08:55:04 103 98-107 (mm ol/L) Final CO2 10/12/2024 08:55:04 26 22-32 (mmo l/L) Final Anion gap 10/12/2024 08:55:04 12 7-15 (mmol /L) Final Glucose 10/12/2024 08:55:04 90 70-120 (mg /dL) Final Albumin 10/12/2024 08:55:04 4.6 3.8-5.0 (g /dL) Final AST (Aspartate aminotransferase) 10/12/2024 08:55:04 33 10-50 (U/L) Final Alk Phos 10/12/2024 08:55:04 73 35-130 (U/ L) Final Bilirubin, Total 10/12/2024 08:55:04 0.5 <=1 .2 (mg/dL) Final Calcium 10/12/2024 08:55:04 9.7 8.4-10.2 ( mg/dL) Final Protein 10/12/2024 08:55:04 6.4 6.0-8.3 (g /dL) Final ALT (Alanine aminotransferase) 10/12/2024 08:55:04 48 10-50 (U/L) Final Performing Location LAB[facility]ATORY [facility] - [address] [facility] [address]
--- OUTSIDE RECORDS SUMMARY | 2024-12-18 21:09 | External Medical Summary | Summary of Care ---
Author Name Unknown Organization [facility] Address [address] [place] [address] Phone [phone] Care Team Providers Care Gas Or Water Meter Installer Name Role Phone Ran Mora MD Primary Care Provider Reason for Visit * Reason Onset Date Comments Other 08/31/2024 Prior authorizat ion Encounter Details Date Type Department Care Team (Late st Contact Info) Description 08/31/2024 Telephone Orthopaedics [facility] [address] [place] [phone] Emile Wisdom MD [address] [place] [address] Other (Prior authorization) Allergies No known active allergiesdocumented as of this encounter (statuses as of 08/31/2024) Medications aspirin enteric coated 81 MG TBEC Take 1 Tablet by mouth in the morning. 9 Active Nitroglycerin 0.4 MG Sublingual Tablet Sublingual (Nitrostat)Indic ations:Angina pectoris (HCC) One tablet under tongue if needed for chest pain. May repeat 3 times. If chest pain continues, call [phone] Tab 11 1 Active Additional Information Patient not taking.Reported on 04/26/2024 Fluticasone Propionate 50 MCG/ACT Nasal Suspension Administer 1 [place] into nostril in the morning. Active Multivitamin [...] MEAL OF THE DAY 90 Capsule 3 06/06/2024 6:49 AM EDT 4 03/05/20 25 Active Levothyroxine Sodium 100 MCG Oral Tablet (Levoxyl)Indicat ions:Hypothyroid ism due to acquired atrophy of thyroid TAKE 1 TABLET BY MOUTH DAILY AT LEAST 30 MINUTES PRIOR TO FIRST MEAL OF THE DAY OR OTHER MEDICATIONS 90 Tablet 06/06/2024 6:49 AM EDT 4 06/05/20 25 Active amLODIPine Besylate 5 MG Oral Tablet (Norvasc)Indicat ions:HTN, goal below 140/90 TAKE 1 TABLET BY MOUTH EVERY DAY 90 Tablet 3 06/22/2024 1:52 PM EST 4 06/19/20 25 Active documented as of this encounter (statuses as of 08/31/2024) Active Problems Problem Noted Date Diagnosed Date [...] as of this encounter (statuses as of 08/31/2024) Resolved Problems Problem Noted Date Diagnosed Date [...] Markers for Patients with Cardiovascular Disease Project #[id number] PI: Jennifer Huffman MD Please call [phone] with study related questions GENOMICS CARDIO RESEARCH OTHER*[id number] 02/02/2009 09/16/2016 Overview (11/23/2009): Renamed Per Clinical Trials Billing Project. Study Titile: Genomic Markers for Patients with Cardiovascular Disease Project #[id number] PI: Jennifer Huffman MD Please call [phone] with study related questions PAIN IN LIMB, LEFT HEEL 10/23/2005 06/04/2017 PERIAPICAL ABSCESS 07/12/2005 7 documented as of this encounter (statuses as of 08/31/2024) Immunizations Name Administration Dates Next Due COVID-19 mRNA, LNP-s, No Pre serve, 2-Dose Series ([employer]) 05/20/2021,10/29/2020,10/08/2020 Covid-19, Mrna, Lnp-s, Pf, B ivalent, 30 Mcg, IM, 12 yrs and above ([employer]) 06/11/2022 DTaP Dipth/Tet/Acell Pertussis ([employer]), Peds 09/04/2020,05/15/2020,01/23/2020 [...] Date Recorded PHQ Adult Total Score 0 11/18/2022 Hunger Vital Sign Answer Date Recorded Within the past 12 months, y ou worried that your food would run out before you got the money to buy more. Never true 11/19/19 23 Within the past 12 months, t he food you bought just didn't last and you didn't have money to get more. 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 Ref # [id number] * Telephone Encounter - Yudy Weaver MED ASSIST - 08/31/2024 1:50 PM EST ----- Message from Yudy Lundy sent at 08/29/2024 10:37 AM EST ----- Regarding: FW: KEYUR auth ----- Message ----- From: Emile Wisdom MD Sent: 08/29/2024 8:54 AM EST To: [facility] Nurse [place]/Class Subject: BAER auth Please get authorization for Hyaluronic acid injection series (prefer Gelsyn) for BL shoulder-GHJ. This series was scheduled to start in 6-8 weeks. Will need canceled or rescheduled if authorizationdenied. documented in this encounter Plan of Treatment Upcoming Encounters Date Type Department Care Team (Late st Contact Info) Description 10/18/2024 10:30 AM EDT Office Visit Orthopaedics [facility] [address] [place] [address] Emile Wisdom MD [address] [place] [address] 10/25/2024 10:30 AM EDT Office Visit Orthopaedics [facility] [address] [place] [phone] Emile Wisdom MD [address] [place] [phone] 10/31/2024 8:00 AM EDT Office Visit Cardiology, [facility] [address] [place] [address] Ran Powell PA-C [address] [place] [address] 11/24/2024 8:00 AM EDT Office Visit Dermatology, [address] [place] [phone] Yi Montes De Oca PA-C [address] [place] [address] [place] [address] 11/29/2024 8:00 AM EDT Laboratory Laboratory, [address] [place] [phone] [facility] [address] [place] [address] 05/24/2025 8:00 AM EDT Laboratory Laboratory, [address] [place] [address] [place], Laboratory [address] [place] [address] 06/01/2025 2:00 PM EDT Office Visit Hematology/Oncology [facility] [place] [address] [facility] [address] Maria Teresa Rizo, BENIGNO [address] [facility] [place] [address] Scheduled Procedures Name Priority Associated Diagnoses Date/Ti me COLONOSCOPY FLEXIBLE PROXIMA L DIAGNOSTIC Recall History of colonic polyps Health Maintenance Due Date Last Done Comments Cologuard 2002 Fecal Occult Blood Test 2002 Sigmoidoscopy 2002 Adult Wellness Visit 10/18/2023 Depression Screening 11/19/2023 11/18/2022 COVID-19 Vaccine ( season) 2024 06/11/2022, 05/20/2021, 10/29/2020, Additional history exists GFR 05/24/2025 05/24/2024, 04/0 08/2023, 04/27/2023, Additional history exists TSH 06/09/2025 06/09/2024, 04/10, 04/21/2022, Additional history exists Pneumococcal Vaccine: 50+ Years (4 of 4 - PCV20 or PCV21) 09/04/2025 09/04/2020, 01/23/2020, 09/07/2019, Additional history exists Albumin/Creatinine Ratio 12/11/2025 023, [...] this encounter Medical Devices Implanted Type Area Soldering Machine Operator Automatic Device Identifier Shelf Expiration Date Model / Serial / Lot Bard Mesh Perfix Plug Large Implanted:Qty : 1 on 04/24/2014 at OR [facility] Left: Groin 06/09/2014 [id number] / / [id number] Port Power Mri W/8fr Cath - [id number] Implanted:Qty : 1 on 07/30/2015 by Martell Osuna MD at OR [facility] Right: Internal Jugular CR BARD : PERIPHERAL VASCULAR 02/04/2017 [id number] / / [id number] documented as of this encounter Advance Directives [...] the patient have Health Care Power of Conference Services Coordinator? Yes, not currently available * Full Code Date Activated Date Inactivated Comments 10/11/2018 5:49 PM 10/11/2018 5:51 PM This order ref lects the patients wishes and were consensually agreed upon. Question Answer Comments Discussion of Advance Directives occurred with: Not Discussed Does the patient have a Living Will? Yes, not cu rrently available Does the patient have Health Care Power of Conference Services Coordinator? Yes, not currently available * Full Code Date Activated Date Inactivated Comments 02/02/2009 12:35 PM 02/03/2009 8:43 AM This order reflects the patients wishes and were consensually agreed upon. Question Answer Comments Discussion of Advance Directives occurred with: Not Discussed Does the patient have a Living Will? No Does the patient have Health Care Power of Attor rico? No Care Teams Gas Or Water Meter Installer Relationship Specialty Start Date End Date Ran Mora MD PCP - General 02/18/05 documented as of this encounter
--- OUTSIDE RECORDS SUMMARY | 2024-12-18 21:09 | External Medical Summary | Summary of Care ---
Author Name Unknown Organization [facility] Address [address] [place] [address] Phone [phone] Care Team Providers Care Filing Clerk Name Role Phone Ran Mora MD Primary Care Provider [phone] Encounter Details Date Type Department Care Team (Late st Contact Info) Description 08/31/2024 Population Health External Data Unspecified Department Allergies No known active allergiesdocumented as of [...] call [phone] Tab 11 1 Active Additional Information Patient not taking.Reported on 04/26/2024 Fluticasone Propionate 50 MCG/ACT Nasal Suspension Administer 1 [place] into nostril in the morning. Active Multivitamin [...] Markers for Patients with Cardiovascular Disease Project #[id number] PI: Jennifer Huffman MD Please call [phone] with study related questions GENOMICS CARDIO RESEARCH OTHER*[id number] 02/02/2009 09/16/2016 Overview (11/23/2009): Renamed Per Clinical Trials Billing Project. 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 Not on file Not [...] Jackie Lloyd RN documented in this encounter Plan of Treatment Upcoming Encounters Date Type Department Care Team (Late st Contact Info) Description 10/18/2024 10:30 AM EDT Office Visit Orthopaedics [facility] [address] [place] [phone] Emile Wisdom MD [address] [place] [address] 10/25/2024 10:30 AM EDT Office Visit Orthopaedics [facility] [address] [place] [phone] Emile Wisdom MD [address] [place] [address] 10/31/2024 8:00 AM EDT Office Visit Cardiology, [facility] [address] [place] [address] Ran Powell PA-C [address] [place] [address] 11/24/2024 8:00 AM EDT Office Visit Dermatology, [address] [place] [phone] Yi Montes De Oca PA-C [address] [place] [address] [place] [address] 11/29/2024 8:00 AM EDT Laboratory Laboratory, [address] [place] [place], [place] [phone] [place], Laboratory [address] [place] [address] 05/24/2025 8:00 AM EDT Laboratory Laboratory, [address] [place] [address] [place], Laboratory [address] [place] [address] 06/01/2025 2:00 PM EDT Office Visit Hematology/On[facility] [phone] Maria Teresa Rizo [facility] [address] Scheduled Procedures Name Priority Associated Diagnoses Date/Ti [...] this encounter Medical Devices Implanted Type Area Assistant Professor Of Art Device Identifier Shelf Expiration Date Model / Serial / Lot Bard Mesh Perfix Plug Large Implanted:Qty : 1 on 04/24/2014 at OR [facility] Left: Groin 06/09/2014 [id number] / / [id number] Port Power Mri W/8fr Cath - [id number] Implanted:Qty : 1 on 07/30/2015 by Martell Osuna MD at OR [facility] Right: Internal Jugular CR BARD : PERIPHERAL VASCULAR 02/04/2017 [id number] / / [id number] documented as of this encounter Advance Directives [...] the patient have Health Care Power of Freelance Web Designer? Yes, not currently available * Full Code Date Activated Date Inactivated Comments 10/11/2018 5:49 PM 10/11/2018 5:51 PM This order ref lects the patients wishes and were consensually agreed upon. Question Answer Comments Discussion of Advance Directives occurred with: Not Discussed Does the patient have a Living Will? Yes, not cu rrently available Does the patient have Health Care Power of Freelance Web Designer? Yes, not currently available * Full Code Date Activated Date Inactivated Comments 02/02/2009 12:35 PM 02/03/2009 8:43 AM This order reflects the patients wishes and were consensually agreed upon. Question Answer Comments Discussion of Advance Directives occurred with: Not Discussed Does the patient have a Living Will? No Does the patient have Health Care Power of Attor rico? No Care Teams Filing Clerk Relationship Specialty Start Date End Date Ran Mora MD PCP - General 02/18/05 documented as of this encounter
--- OUTSIDE RECORDS SUMMARY | 2024-12-18 21:09 | External Medical Summary | Summary of Care ---
Author Name Unknown Organization [facility] Address [address] [place] [address] Phone [phone] Care Team Providers Care Farmworker Field Crop Name Role Phone Ran Mora MD Primary Care Provider [phone] Reason for Visit * Reason Comments Outpatient Testing Encounter Details Date Type Department Care Team (Late st Contact Info) Description 10/12/2024 9:00 AM EST Laboratory Laboratory, [facility] [address] [place] [address] [facility] [address] [place] [address] Dyslipidemia, goal LDL below 70; HTN, goal below 130/80; Chronic ischemic heart disease Allergies No known active allergiesdocumented as of this encounter (statuses as of 10/12/2024) Medications aspirin enteric coated 81 MG TBEC Take 1 Tablet by mouth in the morning. 9 Active Nitroglycerin 0.4 MG Sublingual Tablet Sublingual (Nitrostat)Indic ations:Angina pectoris (HCC) One tablet under tongue if needed for chest pain. May repeat 3 times. If chest pain continues, call [phone] Tab 11 1 Active Fluticasone Propionate 50 MCG/ACT Nasal Suspension Administer 1 [place] into nostril in the morning. Active Multivitamin [...] as of this encounter (statuses as of 10/12/2024) Active Problems Problem Noted Date Diagnosed Date [...] as of this encounter (statuses as of 10/12/2024) Resolved Problems Problem Noted Date Diagnosed Date [...] Markers for Patients with Cardiovascular Disease Project #[id number] PI: Jennifer Huffman MD Please call [phone] with study related questions GENOMICS CARDIO RESEARCH OTHER*[id number] 02/02/2009 09/16/2016 Overview (11/23/2009): Renamed Per Clinical Trials Billing Project. 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 Not on file Not [...] 12/31/2018 10:10 AM Jackie Norton, RN * Because of a physical, mental, [...] 10/31/2024 8:00 AM EDT Office Visit Cardiology, [facility] [address] [place] [address] Ran Powell PA-C [address] [place] [address] 11/24/2024 8:00 AM EDT Office Visit Dermatology, [place] [phone] Yi Montes De Oca PA-C [address] [place] [address] [place] [address] 11/29/2024 8:00 AM EDT Laboratory Laboratory, [place] [phone] [facility] [address] [place] [address] 05/24/2025 8:00 AM EDT Laboratory Laboratory, [address] [place] [phone] [facility] [address] [place] [address] 06/01/2025 2:00 PM EDT Office Visit Hematology/Oncology [facility] [place] [address] [facility] [place], [place] [address] Maria Teresa Rizo CRNP [address] [place] [address] Pending Results Name Type Priority Associated Diagnoses Date /Time LIPID PANEL WITH DIRECT LDL IF TG IS HIGH Lab Routine Dyslipidemia, goal LDL below 70 10/12/2024 8:55 AM EST COMPREHENSIVE METABOLIC PANEL Lab Routine HTN, goal below 130/80 Dyslipidemia, goal LDL below 70 10/12/2024 8:55 AM EST CBC Lab Routine Chronic ischemic heart disease 10/12/2024 8:55 AM EST Scheduled Procedures Name Priority Associated Diagnoses Date/Ti [...] this encounter Medical Devices Implanted Type Area Cattle Shipper Device Identifier Shelf Expiration Date Model / Serial / Lot Bard Mesh Perfix Plug Large Implanted:Qty : 1 on 04/24/2014 at OR [facility] Left: Groin 06/09/2014 [id number] / / [id number] Port Power Mri W/8fr Cath - [id number] Implanted:Qty : 1 on 07/30/2015 by Martell Osuna MD at OR [facility] Right: Internal Jugular CR BARD : PERIPHERAL VASCULAR 02/04/2017 [id number] / / [id number] documented as of this encounter Visit Diagnoses Diagnosis Dyslipidemia, goal LDL below 70 Other and unspecified hyperlipidemia HTN, goal below 130/80 Unspecified essential hypertension Chronic ischemic heart disease Chronic ischemic heart disease, unspecified documented in this encounter Advance Directives * [...] the patient have Health Care Power of Employment Evaluator/Case Manager? Yes, not currently available * Full Code Date Activated Date Inactivated Comments 10/11/2018 5:49 PM 10/11/2018 5:51 PM This order ref lects the patients wishes and were consensually agreed upon. Question Answer Comments Discussion of Advance Directives occurred with: Not Discussed Does the patient have a Living Will? Yes, not cu rrently available Does the patient have Health Care Power of Employment Evaluator/Case Manager? Yes, not currently available * Full Code Date Activated Date Inactivated Comments 02/02/2009 12:35 PM 02/03/2009 8:43 AM This order reflects the patients wishes and were consensually agreed upon. Question Answer Comments Discussion of Advance Directives occurred with: Not Discussed Does the patient have a Living Will? No Does the patient have Health Care Power of Attor rico? No Care Teams Farmworker Field Crop Relationship Specialty Start Date End Date Ran Mora MD PCP - General 02/18/05 documented as of this encounter
--- OUTSIDE RECORDS SUMMARY | 2024-12-18 21:09 | External Medical Summary ---
Author Name Unknown Address Unknown Organization K01[place] [place] [address] [facility] [place] [address] Laboratory Report Ordering Provider Test Date Status JOSE A CONTRERAS 10/12/2024 08:55:04 Final Observation Date Value Abnormality Reference (Units ) Status Triglyceride 10/12/2024 08:55:04 142 <=174 ( mg/dL) Final Triglyceride Reference Range s (mg/dL):
<150 Acceptable
150-174 Borderline high
175-499 High
>=500 Very high Cholesterol 10/12/2024 08:55:04 129 <200 (mg /dL) Final Total Cholesterol Reference Ranges (mg/dL):
<200 Desirable
200-239 Borderline high
>=240 High HDL 10/12/2024 08:55:04 35 Below low normal >39 (mg/dL) Final HDL Cholesterol Reference Ra nges (mg/dL):
>=60 High (Desirable)
<50 Low (Undesirable) For Females
<40 Low (Undesirable) For Males NON-HDL CHOLESTEROL 10/12/2024 08:55:04 94 <=159 (mg/dL) Final Non-HDL Cholesterol Referenc e Range (mg/dL):
<100 Target level for high risk ASCVD patient
<130 Optimal for general population
130-159 Near optimal for general population
160-189 Borderline High
190-219 High
>=220 Very High LDL, (calculated) 10/12/2024 08:55:04 66 <= 129 (mg/dL) Final LDL Cholesterol Reference Ra nges (mg/dL):
<70 Target level for high risk ASCVD patient
<100 Optimal for general population
100-129 Near optimal for general population
130-159 Borderline high
160-189 High
>=190 Very high Performing Location [facility] [place] [address] [facility] [address]
--- OUTSIDE RECORDS SUMMARY | 2024-12-18 21:09 | External Medical Summary | Summary of Care ---
Author Name Unknown Organization [facility] Address [address] [place] [address] Phone [phone] Care Team Providers Care Community Health Nursing Director Name Role Phone Ran Mora MD Primary Care Provider [phone] Reason for Visit * Reason Onset Date Comments FYI 11/01/2024 Encounter Details Date Type Department Care Team (Late st Contact Info) Description 11/01/2024 Telephone [facility] [address] [place] [address] Ran Mora MD [address] [place] [address] FYI Allergies No known active allergiesdocumented as of this encounter (statuses as of 11/02/2024) Medications aspirin enteric coated 81 MG TBEC Take 1 Tablet by mouth in the morning. 9 Active Nitroglycerin 0.4 MG Sublingual Tablet Sublingual (Nitrostat)Indic ations:Angina pectoris (HCC) One tablet under tongue if needed for chest pain. May repeat 3 times. If chest pain continues, call [phone] Tab 11 1 Active Fluticasone Propionate 50 MCG/ACT Nasal Suspension Administer 1 Suches into nostril in the morning. Active Multivitamin [...] Markers for Patients with Cardiovascular Disease Project #[id number] PI: Jennifer Huffman MD Please call [phone] with study related questions GENOMICS CARDIO RESEARCH OTHER*[id number] 02/02/2009 09/16/2016 Overview (11/23/2009): Renamed Per Clinical Trials Billing Project. Study Titile: Genomic Markers for Patients with Cardiovascular Disease Project #[id number] PI: Jennifer Huffman MD Please call [phone] with study related questions PAIN IN LIMB, LEFT HEEL 10/23/200504/2017 PERIAPICAL ABSCESS 07/12/2005 7 documented as of this encounter (statuses as of 11/02/2024) Immunizations Name Administration Dates Next Due COVID-19 mRNA, LNP-s, No Pre serve, 2-Dose Series ([employer]) 05/20/2021,10/29/2020,10/08/2020 Covid-19, Mrna, Lnp-s, Pf, B ivalent, 30 Mcg, IM, 12 yrs and above ([employer]) 06/11/2022 DTaP Dipth/Tet/Acell Pertussis ([employer]), Peds 09/04/2020,05/15/2020,01/23/2020 [...] No 09/06/2024 Does the household have a [facility] source of income? 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 Pt stated his instructional resource teacher was also thinking about changing pt's medication. Pt will be in tomorrow for another BP check. He is bringing in hisfrom home to alsoget it checked. Pt would like the BP results sent to Pcp and instructional resource teacher * Telephone Encounter - Ran Mora MD [...] 9:45 AM EDT Cardiac Studies Cardiac Studies, [facility] [address] [facility] [place] [address] 11/24/2024 8:00 AM EDT Office Visit Dermatology, [place] [address] Yi Montes De Oca PA-C [address] [place] [address] [place] [address] 11/29/2024 8:00 AM EDT Laboratory Laboratory, [place] [address] [facility] [address] [place] [address] 05/24/2025 8:00 AM EDT Laboratory Laboratory, [place] [address] [facility] [place] [address] 06/01/2025 2:00 PM EDT Office Visit Hematology/Oncology Rosa Elena Arreola [place] [address] [facility] [place] [address] Maria Teresa Rizo CRNP [address] [place] [address] Scheduled Orders Name Type [...] this encounter Medical Devices Implanted Type Area Protection Mgr Device Identifier Shelf Expiration Date Model / Serial / Lot Bard Mesh Perfix Plug Large Implanted:Qty : 1 on 04/24/2014 at OR [facility] Left: Groin 06/09/2014 [id number] / / [id number] Port Power Mri W/8fr Cath - [id number] Implanted:Qty : 1 on 07/30/2015 by Martell Osuna MD at OR [facility] Right: Internal Jugular CR BARD : PERIPHERAL VASCULAR 02/04/2017 [id number] / / [id number] documented as of this encounter Visit Diagnoses [...] the patient have Health Care Power of Freezer Laboratory Technician? Yes, not currently available * Full Code Date Activated Date Inactivated Comments 10/11/2018 5:49 PM 10/11/2018 5:51 PM This order ref lects the patients wishes and were consensually agreed upon. Question Answer Comments Discussion of Advance Directives occurred with: Not Discussed Does the patient have a Living Will? Yes, not cu rrently available Does the patient have Health Care Power of Freezer Laboratory Technician? Yes, not currently available * Full Code Date Activated Date Inactivated Comments 02/02/2009 12:35 PM 02/03/2009 8:43 AM This order reflects the patients wishes and were consensually agreed upon. Question Answer Comments Discussion of Advance Directives occurred with: Not Discussed Does the patient have a Living Will? No Does the patient have Health Care Power of Attor rico? No Care Teams Community Health Nursing Director Relationship Specialty Start Date End Date Ran Mora MD [address] [place] [address] PCP - General 02/18/05 documented as of this encounter
--- OUTSIDE RECORDS SUMMARY | 2024-12-18 21:09 | External Medical Summary | Summary of Care ---
Author Name Unknown Organization [facility] Address [address] [place] [address] Phone [phone] Care Team Providers Care Robotic Technician Name Role Phone Dong Mora MD Primary Care Provider [phone] Reason for Visit * Reason Comments Medication Refill Encounter Details Date Type Department Care Team (Late st Contact Info) Description 10/08/2024 Refill Cardiology, [facility] [address] [place] [address] Dong Villanueva, PATatianaC [address] [place] [address] Chronic ischemic heart disease*; HTN, goal below 130/80; Dyslipidemia, goal LDL below 70 Allergies No known active allergiesdocumented as of this encounter (statuses as of 10/13/2024) Medications aspirin enteric coated 81 MG TBEC Take 1 Tablet by mouth in the morning. 9 Active Nitroglycerin 0.4 MG Sublingual Tablet Sublingual (Nitrostat)Leticia cations:Angina pectoris (HCC) One tablet under tongue if needed for chest pain. May repeat 3 times. If chest pain continues, call [phone] Tab 11 1 Active Fluticasone Propionate 50 MCG/ACT Nasal Suspension Administer 1 Viola into nostril in the morning. Active Multivitamin [...] 10/12/2024 7:12 AM EST 5 026 Active Rosuvastatin Calcium 40 MG Oral Tablet (Crestor)Indica tions:HTN, goal below 130/80,Dyslipid emia, goal LDL below 70 TAKE ONE TABLET BY MOUTH DAILY 90 Tablet 3 07/12/2024 4:40 PM EST 4 025 Discontin ued(Refil l) documented as of this encounter (statuses as of 10/13/2024) Active Problems Problem Noted Date Diagnosed Date [...] as of this encounter (statuses as of 10/13/2024) Resolved Problems Problem Noted Date Diagnosed Date [...] Markers for Patients with Cardiovascular Disease Project #[id number] PI: Jennifer Huffman MD Please call [phone] with study related questions GENOMICS CARDIO RESEARCH OTHER*[id number] 02/02/2009 09/16/2016 Overview (11/23/2009): Renamed Per Clinical Trials Billing Project. Study Titile: Genomic Markers for Patients with Cardiovascular Disease Project #[id number] PI: Jennifer Huffman MD Please call [phone] with study related questions PAIN IN LIMB, LEFT HEEL 10/23/2005 06/04/2017 PERIAPICAL ABSCESS 07/12/2005 7 documented as of this encounter (statuses as of 10/13/2024) Immunizations Name Administration Dates Next Due COVID-19 mRNA, LNP-s, No Pre serve, 2-Dose Series ([employer]) 05/20/2021,10/29/2020,10/08/2020 Covid-19, Mrna, Lnp-s, Pf, B ivalent, 30 Mcg, IM, 12 yrs and above ([employer]) 06/11/2022 DTaP Dipth/Tet/Acell Pertussis (Infanrix), Peds 09/04/2020,05/15/2020,01/23/2020 [...] 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 Patient was notified. Successfully contacted patient and provided [facility] message. * Telephone Encounter - Antonia Zamorano [facility] - 10/10/2024 12:03 PM ESTSigned Prescriptions: Disp Refills Rosuvastatin Calcium 40 MG Oral Tablet (Cr*90 Tab*0 Sig: TAKE ONE TABLET BY MOUTH DAILYAuthorizing Provider: DONG VILLANUEVA User: ANTONIA ZAMORANO------ * Telephone Encounter - Antonia Zamorano [facility] - 10/10/2024 11:59 AM EST Provided 90 days supply with 0 refill(s) until upcoming appointment. Per refill protocol patient should have lipid panel on file within past year. Reviewed : Care Gaps/Health Maintenance medications list for any routine labs typically ordered for this patient. Lab orders placed. Please contact patient to advise of labs ordered for blood draw. Recommend patient to fast if able for labs. Patient may still have water and regular medications. Advise to obtain labs before his scheduled office visit 10/31/2024. Antonia Zamorano, Pharm.D. Clinical Pharmacist [facility]) [phone] documented in this encounter Plan of Treatment Upcoming Encounters Date Type Department Care Team (Late st Contact Info) Description 10/31/2024 8:00 AM EDT Office Visit Cardiology, [facility] [address] [place] [address] Dong Villanueva PA-C [address] [place] [address] 11/24/2024 8:00 AM EDT Office Visit Dermatology, [place] [address] Yi Montes De Oca PA-C [address] [place] [address] [place] [address] 11/29/2024 8:00 AM EDT Laboratory Laboratory, [place] [address] [place] [address] 05/24/2025 8:00 AM EDT Laboratory Laboratory, [address] [place] [address] [place] [address] 06/01/2025 2:00 PM EDT Office Visit Hematology/Oncology Rosa Elena Arreola [place] [address] [facility] [place] [address] Maria Teresa Rizo, AIRCRAFT DESIGNER [address] [place] [address] Scheduled Procedures Name Priority [...] this encounter Medical Devices Implanted Type Area Dining Room Supervisor Device Identifier Shelf Expiration Date Model / Serial / Lot Bard Mesh Perfix Plug Large Implanted:Qty : 1 on 04/24/2014 at OR [facility] Left: Groin 06/09/2014 [id number] / / [id number] Port Power Mri W/8fr Cath - [id number] Implanted:Qty : 1 on 07/30/2015 by Martell Osuna MD at OR [facility] Right: Internal Jugular CR BARD : PERIPHERAL VASCULAR 02/04/2017 [id number] / / [id number] documented as of this encounter Results * (ABNORMAL) CBC (10/12/2024 8:55 AM EST) WBC 6.63 4.00 - 10.80 K/uL 10/12/2024 4:13 PM EST [facility] RBC 5.07 4.50 - 5.25 M/uL 10/12/2024 4:13 PM EST [facility] HGB 15.0 14.0 - 16.8 g/dL 10/12/2024 4:13 PM EST [facility] HCT 46.3 40.0 - 48.4 % 10/12/2024 4:13 PM EST [facility] MCV 91.3 82.0 - 99.5 fL 10/12/2024 4:13 PM EST [facility] MCH 29.6 27.0 - 34.0 pg 10/12/2024 4:13 PM EST [facility] MCHC 32.4 32.0 - 36.0 g/dL 10/12/2024 4:13 PM EST [facility] RDW 12.9 11.5 - 15.5 % 10/12/2024 4:13 PM EST [facility] PLT 136(L) 140 - 400 K/uL 10/12/2024 4:13 PM EST [facility] MPV 10.8 6.6 - 11.1 fL 10/12/2024 4:13 PM EST [facility] nRBCs 0 <=0 /100 WBCs 10/12/2024 4:13 PM EST [facility] Blood Venous blood specimen / Unknown Venipuncture / Unknown 10/12/2024 8:55 AM EST 10/12/2024 8:55 AM EST Antonia Zamorano [facility] LAB BLOOD ORDERABLES Becky ochoa Result Performing Organization Address City/State/[facility] Co de Phone Number [facility] [address] [place] [address] * (ABNORMAL) COMPREHENSIVE METABOLIC PANEL (10/12/2024 8:55 AM EST) BUN 23(H) 6 - 20 mg/dL 10/12/2024 2:27 PM EST [facility] CREATININE 1.2 0.6 - 1.2 mg/dL 10/12/2024 2:27 PM EST [facility] EGFR 69 >=60 mL/min 10/12/2024 2:27 PM EST [facility] Comment:eGFR is calculated b ased on the CKD-EPI 2020 equation. SODIUM 141 135 - 146 mmol/L 10/12/2024 2:27 PM EST [facility] POTASSIUM 4.1 3.5 - 5.1 mmol/L 10/12/2024 2:27 PM EST [facility] CHLORIDE 103 98 - 107 mmol/L 10/12/2024 2:27 PM EST [facility] CO2 26 22 - 32 mmol/L 10/12/2024 2:27 PM EST [facility] ANION GAP 12 7 - 15 mmol/L 10/12/2024 2:27 PM EST [facility] GLUCOSE 90 70 - 120 mg/dL 10/12/2024 2:27 PM EST [facility] Albumin 4.6 3.8 - 5.0 g/dL 10/12/2024 2:27 PM EST [facility] AST 33 10 - 50 U/L 10/12/2024 2:27 PM EST [facility] Alkaline Phosphatase 73 35 - 130 U/L 10/12/2024 2:27 PM EST [facility] Bilirubin, Total 0.5 <=1.2 mg/dL 10/12/2024 2:27 PM EST [facility] CALCIUM 9.7 8.4 - 10.2 mg/dL 10/12/2024 2:27 PM EST [facility] Protein 6.4 6.0 - 8.3 g/dL 10/12/2024 2:27 PM EST [facility] ALT 48 10 - 50 U/L 10/12/2024 2:27 PM EST [facility] Blood Venous blood specimen / Unknown Venipuncture / Unknown 10/12/2024 8:55 AM EST 10/12/2024 8:55 AM EST us Antonia Zamorano [facility] LAB BLOOD ORDERABLES Becky ochoa Result [facility] [address] [place] [address] * (ABNORMAL) LIPID PANEL WITH DIRECT LDL IF TG IS HIGH (10/12/2024 8:55 AM EST) Triglycerides 142 <=174 mg/dL 10/12/2024 2:27 PM EST [facility] Comment: Triglyceride Reference Ranges (mg/dL): <150 Acceptable 150-174 Borderline high 175-499 High >=500 Very high Cholesterol 129 <200 mg/dL 10/12/2024 2:27 PM EST [facility] Comment: Total Cholesterol Reference Ranges (mg/dL): <200 Desirable 200-239 Borderline high >=240 High HDL Cholesterol 35(L) >39 mg/dL 2:27 PM EST [facility] Comment: HDL Cholesterol Reference Ranges (mg/dL): >=60 High (Desirable) <50 Low (Undesirable) For Females <40 Low (Undesirable) For Males Non-HDL Cholesterol 94 <=159 mg/dL 10/12/2024 2:27 PM EST [facility] Comment: Non-HDL Cholesterol Reference Range (mg/dL): <100 Target level for high risk ASCVD patient <130 Optimal for general population 130-159 Near optimal for general population 160-189 Borderline High 190-219 High >=220 Very High LDL Cholesterol 66 <=129 mg/dL 10/12/2024 2:27 PM EST [facility] Comment: LDL Cholesterol Reference Ranges (mg/dL): <70 Target level for high risk ASCVD patient <100 Optimal for general population 100-129 Near optimal for general population 130-159 Borderline high 160-189 High >=190 Very high Blood Venous blood specimen / Unknown Venipuncture / Unknown 10/12/2024 8:55 AM EST 10/12/2024 8:55 AM EST us Antonia Zamorano [facility] LAB BLOOD ORDERABLES Becky ochoa Result Performing Organization Address City/State/[facility] Co de Phone Number [facility] [address] [place] [address] documented in this encounter Visit Diagnoses Diagnosis Chronic ischemic heart disease- Primary Chronic ischemic heart disease, unspecified HTN, goal below 130/80 Unspecified essential hypertension Dyslipidemia, goal LDL below 70 Other and unspecified hyperlipidemia documented in this encounter Advance Directives * [...] the patient have Health Care Power of Precision Lens Grinder? Yes, not currently available * Full Code Date Activated Date Inactivated Comments 10/11/2018 5:49 PM 10/11/2018 5:51 PM This order ref lects the patients wishes and were consensually agreed upon. Question Answer Comments Discussion of Advance Directives occurred with: Not Discussed Does the patient have a Living Will? Yes, not cu rrently available Does the patient have Health Care Power of Precision Lens Grinder? Yes, not currently available * Full Code Date Activated Date Inactivated Comments 02/02/2009 12:35 PM 02/03/2009 8:43 AM This order reflects the patients wishes and were consensually agreed upon. Question Answer Comments Discussion of Advance Directives occurred with: Not Discussed Does the patient have a Living Will? No Does the patient have Health Care Power of Attor rico? No Care Teams Robotic Technician Relationship Specialty Start Date End Date Dong Mora MD PCP - General 02/18/05 documented as of this encounter
--- OUTSIDE RECORDS SUMMARY | 2024-12-18 21:09 | External Medical Summary ---
Author Name Unknown Address Unknown Organization K01:LABORATORY [facility] - [facility] [address] [facility] [address] [facility] [address] [facility] [address] Laboratory Report Ordering Provider Test Date Status JOSE A CONTRERAS 10/12/2024 08:55:04 Final Observation Date Value Abnormality Reference (Units ) Status WBC, Total 10/12/2024 08:55:04 6.63 4.00-10.80 (K/uL) Final RBC 10/12/2024 08:55:04 5.07 4.50-5.25 (M/uL) Final Hemoglobin 10/12/2024 08:55:04 15.0 14.0-16.8 (g/dL) Final HCT 10/12/2024 08:55:04 46.3 40.0-48.4 (%) Final MCV 10/12/2024 08:55:04 91.3 82.0-99.5 (fL) Final MCH 10/12/2024 08:55:04 29.6 27.0-34.0 (pg) Final MCHC 10/12/2024 08:55:04 32.4 32.0-36.0 (g/dL) Final RDW 10/12/2024 08:55:04 12.9 11.5-15.5 (%) Final Platelets 10/12/2024 08:55:04 136 Below low normal 140-400 (K/uL) Final MPV 10/12/2024 08:55:04 10.8 6.6-11.1 (fL) Final Nucleated erythrocytes/100 leukocytes [Ratio] in Blood by Automated count 10/12/2024 08:55:04 0 <=0 (/100 WBCs) Final Performing Location [facility]ATORY [facility] - [address] [place] [address]
--- OUTSIDE RECORDS SUMMARY | 2024-12-18 21:10 | External Medical Summary | Summary of Care ---
Author Name Unknown Organization [facility] Address [address] [place] [address] Phone [phone] Care Team Providers Care [employer] Medical Sergeant Name Role Phone Ran Mora MD Primary Care Provider [phone] Reason for Referral * Evaluate & Treat - Unlimited Visits (Within 10 days (routine)) - Authorized Specialty Diagnoses / Procedures Referred By Hugo cervantes Referred To Contact Physical Therapy / Physical Medicine And Rehab Diagnoses Rotator cuff arthropathy of both shoulders Emile Wisdom MD [address] [place] [address] Phone: tel: fax: Referral ID Status Reason Start Date Expiration Date Visits Requested Visits Authorized [id number] Authorized Specialty Services Required 08/29/[phone] Question Answer Referral Priority Within 10 days (routine) Where should this appointment be scheduled? [facility] Comments PATIENT HAS XRAY REPORT PATIENT ALSO HAS HX OF CVA - IS TO CLARIFY WHAT HE IS ALLOWED TO DO WITH HIS NEUROLOGIST. HAS BEEN TOLD NO LIFTING WEIGHTS BUT IS SUPPOSEDLY ALLOWED BANDS Reason for Visit * Reason Comments Follow Up B/L shoulder Pain Encounter Details Date Type Department Care Team (Late st Contact Info) Description 08/29/2024 8:00 AM EST Office Visit Orthopaedics [facility] [address] [place] [phone] Emile Wisdom MD [address] [place] [address] Rotator cuff arthropathy of both shoulders* Allergies No known active allergiesdocumented as of this encounter (statuses as of 08/29/2024) Medications aspirin enteric coated 81 MG TBEC [...] Propionate 50 MCG/ACT Nasal Suspension Administer 1 Jasper into nostril in the morning. Active Multivitamin [...] 1:52 PM EST 4 06/19/20 25 Active Hospital, Clinic, or Other Facility Administered Medication Ordered Dose Route Frequency Start Date End Date Status Triamcinolone Acetonide (Kenalog) 40 MG/ML inj 40 mgIndications:Rotator cuff arthropathy of both shoulders 40 mg IX ONCE 08/29/2024 08/29/2024 Ended Triamcinolone Acetonide (Kenalog) 40 MG/ML inj 40 mgIndications:Rotator cuff arthropathy of both shoulders 40 mg IX ONCE 08/29/2024 08/29/2024 Ended lidocaine 1 % inj 10 mgIndications:Rotator cuff arthropathy of both shoulders 10 mg IX ONCE 08/29/2024 08/29/2024 Ended lidocaine 1 % inj 10 mgIndications:Rotator cuff arthropathy of both shoulders 10 mg IX ONCE 08/29/2024 08/29/2024 Ended documented as of this encounter (statuses as of 08/29/2024) Active Problems Problem Noted Date Diagnosed Date [...] as of this encounter (statuses as of 08/29/2024) Resolved Problems Problem Noted Date Diagnosed Date [...] Markers for Patients with Cardiovascular Disease Project #[id number] PI: Jennifer Huffman MD Please call [phone] with study related questions GENOMICS CARDIO RESEARCH OTHER*[id number] 02/02/2009 09/16/2016 Overview (11/23/2009): Renamed Per Clinical Trials Billing Project. 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 No fall or injury, pt is concerned for arthritis in both shoulders. Not sleeping welldue to pain. pain is located diffusely around the shoulder. No recent injuries. Also reports he hada fall onto his left ribs this past weekend. No shortness of breath but does have mid axillary pain. Additional history 04/18/2021: Glenohumeral joint Steroid injection done of left shoulder by myself ultrasound- guided give him significant long-term benefit. He would like to have this repeated. New issue: Right shoulder pain Patient has previously seen my colleague Dr. Magaña (orthopaedic surgery) for this. I have readhis note from 04/28/2019. In summary he was diagnosed with rotator cuff arthropathy. He was not interested in pursuing any aggressive. Requested injection and was given a steroid injection at that visit. Would like to have an a steroid injection of the shoulder as well Additional history 11/20/2021: F/u b/l shoulder injection left shoulder 05/08/21 GH right shouder injection was 05/08/21, injection lasted for 6 mth. Level of pain today left is worse than right 6/10 Additional history 04/21/2023: Had long-lasting benefit from bilateral glenohumeral joint injections performed on that date. However pain did eventually returned. Would like to have them injected today and is also willing to consider surgical evaluation. Additional history 12/28/2023: Rates pain as an 8/10 today bilaterally. Reports substantial long-term benefit from the bilateral ultrasound-guided steroid injections I performed for him on 04/21/2023. In addition he had surgical consultation with my colleague Dr. Magaña (orthopaedic surgery) on 07/30/2023. I have read the note from that visit dated 07/30/2023 and in summary: He was diagnosed with bilateral rotator cuff arthropathy. He was considered to be doing relatively well with overhead function. Discuss that ultimately he would be a good candidate for reverse shoulder arthroplasty however to high functioning the point that evaluation. He was to continue following with myself for ongoing treatments until significant increase in pain or functional decline occur. Since that visit: Received nearly 7 months of substantial benefit from previous bilateral glenohumeral joint steroid injections. Would like to repeat those. 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 Employer: [employer] Social Needs Financial resource strain: Not on file Food insecurity Worry: Never true Inability: Never true Transportation needs Medical: Not on file Non-medical: Not on file Tobacco Use Smoking status: Former Smoker Years: 2.00 Types: Cigars Quit date: 04/05/2014 Years since quittin.0 Smokeless tobacco: Former User Quit date: 09/20/2018 Substance and Sexual Activity Alcohol use: No Frequency: Never Drug use: No Sexual activity: Not on file Lifestyle Physical activity Days per week: Not on file Minutes per session: Not on file Stress: Not on file Relationships Social connections Talks on phone: Not on file Gets together: Not on file Attends islam service: Not on file Active member of club or organization: Not on file Attends meetings of clubs or organizations: Not on file Relationship status: Not on file Intimate partner violence Fear of current or ex partner: Not on file Emotionally abused: Not on file Physically abused: Not on file Forced sexual activity: Not on file Other Topics Concern Service Not Asked Blood Transfusions Not Asked Caffeine Concern Not Asked Occupational Exposure Yes Comment: gasolene and battery acid Hobby Hazards Not Asked Sleep Concern Not Asked Stress Concern Not Asked Weight Concern Not Asked Special Diet Not Asked Back Care Not Asked Exercise Yes Comment: weights 3 days per wk/ Bike Helmet Not Asked Seat Belt Not Asked Self-Exams Not Asked Social History Narrative 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 Vaping/E-Cigarette Use Vaping/E-Cigarette Use Never Assessed Vaping/E-Cigarette Substances Vaping/E-Cigarette Devices Physical Exam Constitutional: Generally well-nourished and in no acute distress Psychiatric: Mood and Affect normal Eyes: EOMI Respiratory: Normal respiratory effort with regular rate and rhythm Shoulder Exam ROM: Bilateral shoulder range of motion for flexion abduction to 160 Strength: Forward flexion: L - 5/5, R - 5/5 Abduction: L - 5/5, R - 5/5 External Rotation: L - 5/5, R - 5/5 Internal Rotation: L - 5/5, R - 5/5 Special Tests: Motor to Distal AIN, PIN, Medial, Radial, Ulnar: Intact Bilateral Radiology (I have personally reviewed the following films): 12/28/2023: 4-view x-ray of each shoulder Bilateral rotator cuff arthropathy similar in appearance to previous radiographs with slight progression - per my interpretation. Awaiting formal radiology interpretation. 12/18/2020: Three-view x-ray left shoulder RFINDINGS Narrowing of the subacromial space, consistent with a chronic full-thickness rotator cuff tear. Moderate acromioclavicular osteoarthritis and [id number] glenohumeral osteoarthritis. No acute fracture or aggressive osseous lesion identified. Visualized thoracic structures are unremarkable. IMPRESSION IMPRESSION Chronic findings as above. 04/28/2019: Three-view x-ray of the right shoulder FINDINGS Bony mineralization is within normal limits. No evidence for acute fracture. Glenohumeral joint space is preserved. Cranial migration of the humeral head abutting the acromial undersurface consistentwith underlying full-thickness rotator cuff tear. Rotator cuff arthropathy with rounded appearance of the humeral head. Mild to moderate acromioclavicular joint osteoarthrosis with prominent dorsal spurring and loose body. IMPRESSION IMPRESSION Rotator cuff arthropathy secondary to full-thickness rotator cuff tear. Assessment and Plan: 1) Chronic BL shoulder pain Secondary to Rotator cuff arthropathy Discussed nature of this injury and likely progression He I have provided ultrasound-guided bilateral glenohumeral joint steroid injections with ultrasound guidance in both shoulders. The 1st injection I performed in his left shoulder was on 12/18/2020 and the most recent was on 12/28/2023 The 1st injection I performed in his right shoulder was on 05/08/2021 and the most recent was on 12/28/2023 These have given him substantial long-term benefit. Most recent ones gave him nearly 7 months benefit. Repeated bilateral ultrasound-guided glenohumeral joint steroid injection today 08/29/2024 Also as noted above: he had surgical consultation with my colleague Dr. Magaña (orthopaedic surgery) on 07/30/2023. I have read the note from that visit dated 07/30/2023 and in summary: He was diagnosed with bilateral rotator cuff arthropathy. He was considered to be doing relatively well with overhead function. Discuss that ultimately he would be a good candidate for reverse shoulder arthroplasty however to high functioning the point that evaluation. He was to continue following with myself for ongoing treatments until significant increase in pain or functional decline occur. He also would like to try viscosupplementation in his to be scheduled for bilateral series startingin 6-8 weeks. Physical therapy referral placed. PROCEDURE NOTE: SHOULDER GLENOHUMERAL JOINT INJECTION Laterality: Bilateral Time out: Prior to injection, a time out was called to confirm the administration of appropriate medicine, patient name, procedure and confirm to the best of our ability and knowledge the presence of any necessary risks and benefits. Patient verbalized understanding. Ultrasound required due to location of joint being too deep to accurately inject without ultrasoundguidance Ultrasound utilized to guide injection. During the procedure, the needle was visualized in plane and was advanced with continuous ultrasound guidance to the appropriate anatomical landmark as described in the procedure. Sterile technique applied using gloves, chlorhexadine, and alcohol swabs. Ethyl chloride spray for local anesthetic. Glenohumeral joint injected using 2 inch, 22 gauge needle. Injected with 1 mL Lidocaine 1% - 1 mL Triamcinolone Acetonide 40 mg/mL >> inject 2 mL. Patient tolerated procedure with no significant bleeding or adverse reaction. Patient instructed to call or return to clinic for fever, warmth, unusual redness at injection sitefor potential infection. Patient also advised regarding post-procedural pain. Emile Wisdom MD [facility] [address] [phone] documented in this encounter Nursing Notes * Hayde Gilbert LPN - 08/29/2024 8:05 AM EST -f/u bilateral shoulder -US guided bilateral steroid injections 04/21/23 -Surgery on hold per discussion with Dr. Magaña -12/28/23 GHJ injections B/L: lasted 7 mos per pt -Pt here for repeat injections -Pt is unaccompanied today -Pt had questions re: gel injections Nuria Redd LPN documented in this encounter Plan of Treatment Upcoming Encounters Date Type Department Care Team (Late st Contact Info) Description 10/18/2024 10:30 AM EDT Office Visit Orthopaedics [facility] [address] [place] [phone] Emile Wisdom MD [address] [place] [address] 10/25/2024 10:30 AM EDT Office Visit Orthopaedics [facility] [address] [place] [phone] Emile Wisdom MD [address] [place] [address] 10/31/2024 8:00 AM EDT Office Visit Cardiology, [facility] [address] [place] [address] Ran Powell PA-C [address] [place] [address] 11/01/2024 10:30 AM EDT Office Visit Orthopaedics [facility] [address] [place] [phone] Emile Wisdom MD [address] [place] [address] 11/24/2024 8:00 AM EDT Office Visit Dermatology, [address] [place] [phone] Yi Montes De Oca PA-C [address] [place] [address] [place] [address] 11/29/2024 8:00 AM EDT Laboratory Laboratory, [address] [place] [phone] [facility] [address] [place] [address] 05/24/2025 8:00 AM EDT Laboratory Laboratory, [address] [place] [address] [place] [address] [place] [address] 06/01/2025 2:00 PM EDT Office Visit Hematology/Oncology [facility] [place] [address] [facility] [place] [address] Maria Teresa Rizo CRNP [address] [facility] [place] [id number] Scheduled Orders Name Type Priority Associated Diagnoses Orde r Schedule POINT OF CARE US MAJOR JOINT INJECTION, ORTHO Medical Imaging Routine Rotator cuff arthropathy of both shoulders Ordered: 08/29/2024 Scheduled Procedures Name Priority Associated Diagnoses Date/Ti me COLONOSCOPY FLEXIBLE PROXIMA L DIAGNOSTIC Recall History of colonic polyps Scheduled Referrals Name Type Priority Associated Diagnoses Orde r Schedule PHYSICAL THERAPY REFERRAL OP Referral Within 10 days (routine) Rotator cuff arthropathy of both shoulders Ordered: 08/29/2024 Health Maintenance Due Date Last Done Comments [...] this encounter Medical Devices Implanted Type Area Lead Business Systems Analyst Device Identifier Shelf Expiration Date Model / Serial / Lot Bard Mesh Perfix Plug Large Implanted:Qty : 1 on 04/24/2014 at OR [facility] Left: Groin 06/09/2014 [id number] / / [id number] Port Power Mri W/8fr Cath - [id number] Implanted:Qty : 1 on 07/30/2015 by Martell Osuna MD at OR [facility] Right: Internal Jugular CR BARD : PERIPHERAL VASCULAR 02/04/2017 [id number] / / [id number] documented as of this encounter Visit Diagnoses Diagnosis Rotator cuff arthropathy of both shoulders- Primary documented in this encounter Administered Medications Inactive Administered Medications - up to 3 most recent administrations Medication Order MAR Action Action Date Dose Rate Site lidocaine 1 % inj 10 mg 10 mg, Intra-Articular, ONCE, On Thu08/29/24 at 0930, For 1 doseIndications:Rotator cuff arthropathy of both shoulders Given 08/29/2024 8:48 AM EST 10 mg Shoulder Right lidocaine 1 % inj 10 mg 10 mg, Intra-Articular, ONCE, On Thu08/29/24 at 0930, For 1 doseIndications:Rotator cuff arthropathy of both shoulders Given 08/29/2024 8:47 AM EST 10 mg Shoulder Left Triamcinolone Acetonide (Kenalog) 40 MG/ML inj 40 mg 40 mg, Intra-Articular, ONCE, On Thu08/29/24 at 0930, For 1 doseIndications:Rotator cuff arthropathy of both shoulders Given 08/29/2024 8:47 AM EST 40 mg Shoulder Right Triamcinolone Acetonide (Kenalog) 40 MG/ML inj 40 mg 40 mg, Intra-Articular, ONCE, On Thu08/29/24 at 0930, For 1 doseIndications:Rotator cuff arthropathy of both shoulders Given 08/29/2024 8:47 AM EST 40 mg Shoulder Left documented in this encounter Advance Directives * [...] the patient have Health Care Power of Training And Development Coordinator? Yes, not currently available * Full Code Date Activated Date Inactivated Comments 10/11/2018 5:49 PM 10/11/2018 5:51 PM This order ref lects the patients wishes and were consensually agreed upon. Question Answer Comments Discussion of Advance Directives occurred with: Not Discussed Does the patient have a Living Will? Yes, not cu rrently available Does the patient have Health Care Power of Training And Development Coordinator? Yes, not currently available * Full Code Date Activated Date Inactivated Comments 02/02/2009 12:35 PM 02/03/2009 8:43 AM This order reflects the patients wishes and were consensually agreed upon. Question Answer Comments Discussion of Advance Directives occurred with: Not Discussed Does the patient have a Living Will? No Does the patient have Health Care Power of Attor rico? No Care Teams [employer] Medical Sergeant Relationship Specialty Start Date End Date Ran Mora MD PCP - General 02/18/05 documented as of this encounter
[2024-12-18 22:05] LABS: Albumin Globulin Ratio 2.3 (0.9-2); Albumin Level 4.3 gm/dl (3.4-5.0); BUN Creatinine Ratio 22.7 (10-20); Bilirubin,Total 0.3 mg/dl (0.2-1.0); Calcium 9.1 mg/dl (8.6-10.3); Creatinine Clr Calc Pharmacy 62.2 ml/min; Globulin 1.9 gm/dl (2.5-4.0); Total Protein 6.2 gm/dl (6.0-8.3)
[2024-12-18 22:11] LABS: Basophils # (auto) 0.05 K/uL (0.00-0.20); Basophils % (auto) 0.7 %; Eosinophils % (auto) 1.5 %; Hematocrit (blood only) 39.8 % (42.0-52.0); Hemoglobin 13.5 g/dl (14.0-18.0); Immature Granulocytes # (auto) 0.04 K/uL (0.01-0.20); Immature Granulocytes % (auto) 0.6 %; Lymphocytes # (auto) 1.83 K/uL (1.20-3.40); Mean Corpuscular Hemoglobin 29.5 pg (25.0-34.0); Mean Corpuscular Hgb Conc 33.9 g/dL (32.0-36.0); Mean Corpuscular Volume 86.9 fL (80.0-100.0); Mean Platelet Volume 10.3 fL (9.4-12.4); Monocytes # (auto) 0.69 K/uL (0.11-0.59); Monocytes % (auto) 10.2 %; Neutrophils # (auto) 4.08 K/uL (1.40-6.50); Platelet Count 128 K/uL (130-400); RDW Coefficient of Variation 12.4 % (11.5-14.5); RDW Standard Deviation 39.4 fL (36.4-46.3); Red Blood Count 4.58 M/uL (4.70-6.10); Troponin I High Sensitivity 7.3 pg/ml (0-20); White Blood Count 6.79 K/ul (4.8-10.8)
--- NOTE | 2024-12-18 22:13 | Emergency Department Note ---
Impression & Plan Chest pain ED Provider Note HISTORY OF PRESENT ILLNESS: Patient is a 69-year-old male presenting with chest pain. Patient reports that around 1900 this evening he was seated watching TV when he developed sudden, left lateral chest pain. He describes it as sharp in nature and reports that her every time he tried to take a deep breath. He reports he took a sublingual nitro without any relief in his symptoms. He reports shortness of breath secondary to it hurting so bad when he takes a deep breath. He denies any DVT or PE history. He is on a baby aspirin daily but denies any other anticoagulation therapy. He does have a history of a stent in place. He reports his last stent was placed in 2008. Denies any headache or change in vision. Denies any abdominal pain, nausea or vomiting. He reports his pain has significantly improved on arrival to the emergency department. ROS: as above PHYSICAL EXAM: Constitutional: Patient appears in no acute distress. HENT: Head: Normocephalic and atraumatic. Eyes: EOMI, PERRL Mouth/Throat: Mucous membranes moist. Neck: Trachea midline. Neck supple. Cardiovascular: RRR, No murmurs, rubs or gallops. Intact distal pulses. Pulmonary/Chest: No respiratory distress. Breath sounds clear and equal bilaterally. No wheezes or rales. Abdominal: Abdomen soft, no tenderness, rebound or guarding. Musculoskeletal: No edema, tenderness or deformity noted. Skin: Warm and dry. No rash, erythema, pallor or cyanosis Psychiatric: Appropriate mood and affect for situation. Neurological: Alert and keenly responsive. CN II-XII grossly intact, moving all extremities equally and fully. MDM: - Vitals signs stable. - History obtained via patient. History as above. - Chronic conditions affecting care: HTN; HLD; CAD (s/p PCI); B-cell lymphoma; hypothyroidism - Differential diagnoses include, but are not limited to: Acute coronary syndrome; pulmonary embolism; dissection; tension pneumothorax; esophageal rupture; pneumonia - Order placed for continuous cardiac monitoring. At this time, monitor showed rate of 80 bpm with normal sinus rhythm, per my interpretation. - External medical records reviewed. [facility] cardiology office visit note dated 10/27/2024 was reviewed. Patient follows in their clinic for his coronary artery disease. He had a drug-eluting stent placed in January 2009 for exertional angina. He was planning to monitor his blood pressures at home, his blood pressure was elevated in the clinic that day. - EKG image interpreted by myself showed normal sinus rhythm. Rate 81 bpm. QT 374. No acute ischemic changes. - Laboratory workup interpreted by myself showed normal WBC; thrombocytopenia (plt 128); normal PT/INR; elevated D-dimer (670); stable electrolytes; normal troponin; normal lipase - CXR image reviewed by myself is negative for pneumonia, pulm interpretation. - CT PE negative for PE, per radiology. - Patient initially given 50 mcg IV fentanyl for pain control. On reassessment, he is still complaining of significant pain. Given 4 mg IV Zofran and 4 mg IV morphine. On reassessment, patient is still complaining of some chest pain. He has moderate risk heart score. Will admit to hospitalist service for further evaluation and management. - Discussion was had with case loader operator about patient's case and need for admission - Hospitalist, Dr. Wiley, consulted for admission - Patient admitted to [facility] Hospitalist service for further evaluation and management. ASSESSMENT AND PLAN: Diagnosis: Chest pain Plan: Admit Past Med/Surg History Problem List Chest pain (Acute) Heart disease (Chronic) Abdominal mass (Acute) Chest pain Left inguinal hernia (Acute) Pancreatitis (Acute) Encounter for pre-operative examination History of hernia repair RIGHT INGUINAL HERNIA REPAIR= 09/05/18= LMA#5 AT [facility] Medical History (Updated 12/19/24 @ 01:15 by Manda Flanagan MD) B-cell lymphoma T-cell lymphoma Ischemic heart disease Obesity CAD (coronary artery disease) STENT X 1 (2008) Hyperlipidemia Hypertension Asthma Diverticular disease Hypothyroidism Cancer LYMPHOMA (REASON FOR PROCEDURE); S/P R-CHOP 2014 Stroke 2005 S/P TPA= ?MILD LEFT SIDED RESIDUAL WEAKNESS Transient ischemic attack (TIA) Surgical History History of lymph node biopsy RIGHT INGUINAL AND RIGHT UPPER ARM EXCISIONAL LYMPH NODE BIOPSY (08/2018) Hx laparoscopic cholecystectomy History of colonoscopy History of tooth extraction History of vascular access device PORT FOR CHEMO REMOVED IN 2016 History of cardiac cath STENT X 1 (2008) Family History Other Cancer Gallbladder disease Heart disease Hypertension Social History Smoking Status: Former smoker Do You Dip or Chew Tobacco: Yes; Hx Alcohol Use: No Hx Substance Use: No Preferred Language: Bahamian Communication Ability: Effective Visual Impairment: No Limitations Staffing Manager Required: No Beliefs That Will Affect Care: None Current Living Situation: Spouse Feels Safe at Home: Yes Allergies Allergies Allergy/AdvReac Type Severity Reaction Status Date / Time No Known Allergies Allergy Unknown Verified 12/18/24 22:20 Home Meds Home Medications Medication Instructions Recorded Confirmed lisinopril 40 mg tablet 40 mg PO DAILY ##0 06/24/11 12/18/24 nitroglycerin 0.4 mg sublingual 1 tab sublingual DIRECTED PRN 06/24/11 12/18/24 tablet (Nitrostat) Chest Pain ##0 amlodipine 5 mg tablet 5 mg PO DAILY ##0 05/14/15 12/18/24 aspirin 81 mg tablet,delayed 81 mg PO DAILY 10/10/19 12/18/24 release levothyroxine 100 mcg tablet 100 mcg PO DAILYBB 10/10/19 12/18/24 fluticasone propionate 50 1 spray intranasal DAILY 12/18/24 12/18/24 mcg/actuation nasal spray,suspension hydrochlorothiazide 25 mg tablet 12.5 mg PO DAILY 12/18/24 12/18/24 ketoconazole 2 % topical cream 1 applic topical BID 12/18/24 12/18/24 multivitamin 1 tab PO DAILY 12/18/24 12/18/24 omeprazole 40 mg capsule,delayed 40 mg PO DAILYBB 12/18/24 12/18/24 release rosuvastatin 40 mg tablet 40 mg PO DAILY 12/18/24 12/18/24 triamcinolone acetonide 0.1 % 1 applic topical BID PRN RASH ON 12/18/24 12/18/24 topical cream LEGS Previous Rx's Medication Instructions Recorded meclizine 25 mg tablet 25 mg PO QID PRN dizziness #14 tabs 10/10/19 famotidine 20 mg tablet 20 mg PO BID #20 tabs 07/22/22 Results & Data (ED) Vital Signs Vital Signs - 24 hr 12/18/24 21:03 12/18/24 21:23 12/18/24 21:39 Temperature 36.5 C Temperature Source Temporal Artery Scan Pulse Rate 93 H 80 80 Respiratory Rate 21 20 Respiratory Effort / Characteristics Non-Labored Spontaneous Respiratory Depth Normal Respiratory Pattern Regular Blood Pressure 108/62 116/73 Blood Pressure Mean 77 87 Blood Pressure Position Sitting Pulse Oximetry 97 96 Oxygen Delivery Method Room Air Sepsis Recent Fever Within 48 Hours No Sepsis New/Unexplained Change in Mental Status No Sepsis Action Taken by Nursing No Action Required 12/18/24 22:00 12/19/24 01:16 Temperature Temperature Source Pulse Rate 67 65 Respiratory Rate 13 Respiratory Effort / Characteristics Respiratory Depth Respiratory Pattern Blood Pressure 119/89 Blood Pressure Mean 99 Blood Pressure Position Pulse Oximetry Oxygen Delivery Method Sepsis Recent Fever Within 48 Hours Sepsis New/Unexplained Change in Mental Status Sepsis Action Taken by Nursing Laboratory Data 12/18/24 21:34 12/18/24 21:34 Lab Results 12/18/24 12/18/24 Range/Units 21:34 23:41 WBC 6.79 (4.8-10.8) K/ul RBC 4.58 L (4.70-6.10) M/uL Hgb 13.5 L (14.0-18.0) g/dl Hct 39.8 L (42.0-52.0) % MCV 86.9 (80.0-100.0) fL MCH 29.5 (25.0-34.0) pg MCHC 33.9 (32.0-36.0) g/dL RDW Std Deviation 39.4 (36.4-46.3) fL RDW Coeff of Aleida 12.4 (11.5-14.5) % Plt Count 128 L (130-400) K/uL MPV 10.3 (9.4-12.4) fL Immature Gran % (Auto) 0.6 % Neut % (Auto) 60.0 % Lymph % (Auto) 27.0 % [place] % (Auto) 10.2 % Eos % (Auto) 1.5 % Baso % (Auto) 0.7 % Neut # (Auto) 4.08 (1.40-6.50) K/uL Lymph # (Auto) 1.83 (1.20-3.40) K/uL [place] # (Auto) 0.69 H (0.11-0.59) K/uL Eos # (Auto) 0.10 (0.00-0.50) K/uL Baso # (Auto) 0.05 (0.00-0.20) K/uL Immature Gran # (Auto) 0.04 (0.01-0.20) K/uL PT 10.4 (9.0-12.0) Seconds INR 1.0 (0.9-1.1) D-Dimer 670 H* (0-500) ug/L FEU Sodium 140 (136-145) mmol/L Potassium 4.0 (3.5-5.1) mmol/L Chloride 107 (98-107) mmol/L Carbon Dioxide 26 (21-32) mmol/L Anion Gap 7 (3-11) BUN 29 H (6-23) mg/dl Creatinine 1.28 (0.6-1.4) mg/dl Est Cr Clr Drug Dosing 62.2 ml/min eGFR 61.34 BUN/Creatinine Ratio 22.7 H (10-20) Glucose 100 H (70-99(Fasting)) mg/dl Calcium 9.1 (8.6-10.3) mg/dl Total Bilirubin 0.3 (0.2-1.0) mg/dl AST 20 (13-39) U/L ALT 23 (7-52) U/L Alkaline Phosphatase 56 (34-104) U/L Troponin I High Sens 7.3 7.6 (0-20) pg/ml Total Protein 6.2 (6.0-8.3) gm/dl Albumin 4.3 (3.4-5.0) gm/dl Globulin 1.9 L (2.5-4.0) gm/dl Albumin/Globulin Ratio 2.3 H (0.9-2) Lipase 34 (11-82) U/L Administered Medications Discontinued Medications Fentanyl Citrate (Fentanyl Citrate Pf 100 Mcg/2 Ml Vial) 50 mcg IV NOW STA Stop: 12/18/24 22:21 Last Admin: 12/18/24 22:23 Dose: 50 mcg Documented By: ELI Ioversol (Optiray 320 125ml) 125 ml IV ONCE ONE Stop: 12/18/24 22:44 Last Admin: 12/18/24 22:43 Dose: 118 ml Documented By: JOVANY Morphine Sulfate (Morphine Sulfate 4 Mg/Ml 1 Ml Carp\Vial) 4 mg IV NOW STA Stop: 12/18/24 23:07 Last Admin: 12/18/24 23:24 Dose: 4 mg Documented By: ELVIS Ondansetron HCl (Ondansetron Inj 2 Mg/Ml 2 Ml Vial) 4 mg IV NOW STA Stop: 12/18/24 23:07 Last Admin: 12/18/24 23:23 Dose: 4 mg Documented By: ELVIS Imaging Data Radiologist's Impression: Chest X-Ray 12/18/24 21:22 Exam(s): XR CXR 1 VIEW EXAM: XR Chest, 1 View CLINICAL HISTORY: Chest pain, nonspecific. TECHNIQUE: Frontal view of the chest. COMPARISON: No relevant prior studies available. FINDINGS: Lungs: Shallow inspiration. No focal consolidation. The pulmonary vasculature demonstrates no significant radiographic abnormality. Pleural space: Unremarkable. No pneumothorax. No large pleural effusion. Heart: The cardiac silhouette is within normal limits, accounting for portable technique. Mediastinum: No significant abnormality identified. The trachea is midline. Bones/joints: Unremarkable. No acute fracture. IMPRESSION: Poor inspiratory effort without definite focal consolidation or acute cardiopulmonary process identified. Electronically signed by: Arya Paige MD 12/18/24 23:24 PM Chest CTA 12/18/24 22:02 Exam(s): CTA CHEST IV Amt: 118 ML OPTIRAY 320 EXAM: CT Angiography Chest With Intravenous Contrast CLINICAL HISTORY: Evaluate for potential PE. TECHNIQUE: Axial computed tomographic angiography images of the chest with intravenous contrast. CTDI is 47.4 mGy and DLP is 808.51 mGy-cm. Automated exposure control was utilized for the study. A dose lowering technique was utilized adhering to the principles of ALARA. MIP reconstructed images were created and reviewed. COMPARISON: No relevant prior studies available. FINDINGS: Limitations: There is respiratory artifact, which degrades image quality on multiple image slices. Pulmonary arteries: Accounting for limitations with respiratory artifact, there is no evidence for pulmonary embolism. Several distal subsegmental pulmonary artery segments are of limited diagnostic quality. Aorta: No acute findings. Motion artifact in the ascending thoracic aorta. No thoracic aortic dissection is identified. No thoracic aortic aneurysm. Lungs: Expiratory lung volumes with subsegmental areas of dependent increased attenuation. No definite focal airspace consolidation. Pleural space: Unremarkable. No significant effusion. No pneumothorax. Heart: Cardiomegaly. Prominent coronary artery calcification involving the LAD and circumflex arteries in the distal RCA. Bones/joints: The thoracic vertebral bodies are intact without acute traumatic injury. Multilevel degenerative changes noted. No dislocation. Soft tissues: Unremarkable. Lymph nodes: Unremarkable. No enlarged lymph nodes. IMPRESSION: 1. Accounting for limitations with respiratory artifact, there is no evidence for pulmonary embolism. Several distal subsegmental pulmonary artery segments are of limited diagnostic quality. 2. Expiratory lung volumes with subsegmental presumed atelectatic areas of dependent increased attenuation. No definite focal airspace consolidation. No pleural effusion or pneumothorax. Electronically signed by: Arya Paige MD 12/18/24 23:21 PM Discharge Plan Visit Data Chief Complaint: Chest Pain Stated Complaint: CHEST PAINS ED Provider: Manda Flanagan Discharge Problem: Chest pain Condition: Fair Forms Stand Alone Forms: [facility] Prescriptions Prescriptions: No Action lisinopril 40 mg Tablet 40 mg PO DAILY Qty: 0 nitroglycerin [Nitrostat] 0.4 mg Tablet, Sublingual 1 tab Sublingual DIRECTED PRN (Reason: Chest Pain) Qty: 0 amlodipine 5 mg Tablet 5 mg PO DAILY Qty: 0 levothyroxine 100 mcg tablet 100 mcg PO DAILYBB aspirin 81 mg Tablet,Delayed Release (Dr/Ec) 81 mg PO DAILY meclizine 25 mg tablet 25 mg PO QID PRN (Reason: dizziness) Qty: 14 0RF famotidine 20 mg tablet 20 mg PO BID Qty: 20 0RF multivitamin Tablet 1 tab PO DAILY omeprazole 40 mg capsule,delayed release(DR/EC) 40 mg PO DAILYBB triamcinolone acetonide 0.1 % cream 1 applic TOPICAL BID PRN (Reason: RASH ON LEGS) hydrochlorothiazide 25 mg tablet 12.5 mg PO DAILY ketoconazole 2 % cream 1 applic TOPICAL BID Rx Instructions: APPLY TO FACE AND HEAD fluticasone propionate [Flonase] 50 mcg/actuation [place],Suspension 1 spray INTRANASAL DAILY Rx Instructions: administer into each nostril rosuvastatin 40 mg tablet 40 mg PO DAILY Referrals Referrals: Ran Mora MD [Primary Care Provider] -
[2024-12-18] MEDS: fentaNYL citrate PF 100 MCG/2 ML VIAL IV STA (22:23)
[2024-12-18 22:31] LABS: Prothrombin Time 10.4 Seconds (9.0-12.0)
[2024-12-18 22:38] LABS: D Dimer 670 ug/L FEU (0-500)
[2024-12-18] MEDS: OPTIRAY 320 125ml IV ONE (22:43)
--- NOTE | 2024-12-18 23:22 | CT Scan Report ---
Exam(s): CTA CHEST IV Amt: 118 ML OPTIRAY 320 EXAM: CT Angiography Chest With Intravenous Contrast CLINICAL HISTORY: Evaluate for potential PE. TECHNIQUE: Axial computed tomographic angiography images of the chest with intravenous contrast. CTDI is 47.4 mGy and DLP is 808.51 mGy-cm. Automated exposure control was utilized for the study. A dose lowering technique was utilized adhering to the principles of ALARA. MIP reconstructed images were created and reviewed. COMPARISON: No relevant prior studies available. FINDINGS: Limitations: There is respiratory artifact, which degrades image quality on multiple image slices. Pulmonary arteries: Accounting for limitations with respiratory artifact, there is no evidence for pulmonary embolism. Several distal subsegmental pulmonary artery segments are of limited diagnostic quality. Aorta: No acute findings. Motion artifact in the ascending thoracic aorta. No thoracic aortic dissection is identified. No thoracic aortic aneurysm. Lungs: Expiratory lung volumes with subsegmental areas of dependent increased attenuation. No definite focal airspace consolidation. Pleural space: Unremarkable. No significant effusion. No pneumothorax. Heart: Cardiomegaly. Prominent coronary artery calcification involving the LAD and circumflex arteries in the distal RCA. Bones/joints: The thoracic vertebral bodies are intact without acute traumatic injury. Multilevel degenerative changes noted. No dislocation. Soft tissues: Unremarkable. Lymph nodes: Unremarkable. No enlarged lymph nodes. IMPRESSION: 1. Accounting for limitations with respiratory artifact, there is no evidence for pulmonary embolism. Several distal subsegmental pulmonary artery segments are of limited diagnostic quality. 2. Expiratory lung volumes with subsegmental presumed atelectatic areas of dependent increased attenuation. No definite focal airspace consolidation. No pleural effusion or pneumothorax. Electronically signed by: Arya Paige MD 12/18/24 23:21 PM
[2024-12-18] MEDS: ONDANSETRON INJ 2 MG/ML 2 ML VIAL IV STA (23:23)
[2024-12-18] MEDS: MoRPHine SULFATE 4 MG/ML 1 ML CARP\\VIAL IV STA (23:24)
--- NOTE | 2024-12-18 23:25 | XRay Report ---
Exam(s): XR CXR 1 VIEW EXAM: XR Chest, 1 View CLINICAL HISTORY: Chest pain, nonspecific. TECHNIQUE: Frontal view of the chest. COMPARISON: No relevant prior studies available. FINDINGS: Lungs: Shallow inspiration. No focal consolidation. The pulmonary vasculature demonstrates no significant radiographic abnormality. Pleural space: Unremarkable. No pneumothorax. No large pleural effusion. Heart: The cardiac silhouette is within normal limits, accounting for portable technique. Mediastinum: No significant abnormality identified. The trachea is midline. Bones/joints: Unremarkable. No acute fracture. IMPRESSION: Poor inspiratory effort without definite focal consolidation or acute cardiopulmonary process identified. Electronically signed by: Arya Paige MD 12/18/24 23:24 PM
--- NOTE | 2024-12-19 01:42 | History & Physical Report ---
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 Patient states around 6:30 PM he was watching TV when noticed pain in the left lower chest with some radiation. It was not getting better so came to the ER.Pain is more when taking deep breath. In the ER he received fentanyl and morphine. Currently pain is mild. Denies any shortness of breath. No sweating. No nausea. He gets some dizziness while he stands up. No runny nose or sore throat. No cough. No fevers. Appetite is okay. No nausea. No abdominal pain. Normal bowel and bladder movements. Prior to this episode he was ambulating okay without any symptoms. Currently resting comfortably and hemodynamically stable. Chest pain Pain is more when taking deep breath. D-dimer 670. No PE on CTA chest EKG and 2 sets of troponin okay. History of CAD status post stenting in 2008 Will monitor in med/telemetry N.p.o. Will follow serial cardiac enzymes and echo Cardiac consult in a.m. for further recommendations History of CAD Status post stent On aspirin and statin History of beta-pj intolerance Hx of CVA on aspirin and statin Hypertension On lisinopril and amlodipine and hydrochlorothiazide We will monitor Hyperlipidemia On statin GERD On famotidine and omeprazole Hypothyroidism On Synthyroid History of diffuse large B cell lymphoma in 2014 Status post R-CHOP chemotherapy History of angioimmunoblastic T-cell lymphoma Status post ESHAP chemotherapy with complete remission and status post stem cell transplant in 2019 Follows with heme-onc DVT prophylaxis SCDs Disposition Observation med/telemetry History of Present Illness Chief Complaint: Chest pain Primary Care Provider: Ran Mora MD 69-year-old male with past medical history significant for hypothyroidism, history of hypomagnesia, hypokalemia, dyslipidemia, mild intermittent asthma, history of CAD status post stent, hypertension, GERD, history of diffuse large B-cell lymphoma, 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 Patient states around 6:30 PM he was watching TV when noticed pain in the left lower chest with some radiation. It was not getting better so came to the ER.Pain is more when taking deep breath. In the ER he received fentanyl and morphine. Currently pain is m ild. Denies any shortness of breath. No sweating. No nausea. He gets some dizziness while he stands up. No runny nose or sore throat. No cough. No fevers. Appetite is okay. No nausea. No abdominal pain. Normal bowel and bladder movements. Prior to this episode he was ambulating okay without any symptoms. Currently resting comfortably and hemodynamically stable. Past medical history. As mentioned above Past surgical history. Left heart catheterization. Colonoscopy with biopsy. EGD. EGD with endoscopic ultrasound. Lumbosacral injection. Laparoscopic cholecystectomy. Laparoscopic repair of bilateral inguinal hernia. Social history. . Snuff tobacco. No alcohol use. No drug use. Family history. Father had cancer. Heart disorder. Allergies Allergy/AdvReac Type Severity Reaction Status Date / Time No Known Allergies Allergy Unknown Verified 12/18/24 22:20 Home Medications Medication Instructions Recorded Confirmed Type lisinopril 40 mg tablet 40 mg PO DAILY ##0 06/24/11 12/18/24 History nitroglycerin 0.4 mg sublingual 1 tab sublingual DIRECTED PRN 06/24/11 12/18/24 History tablet (Nitrostat) Chest Pain ##0 amlodipine 5 mg tablet 5 mg PO DAILY ##0 05/14/15 12/18/24 History aspirin 81 mg tablet,delayed 81 mg PO DAILY 10/10/19 12/18/24 History release levothyroxine 100 mcg tablet 100 mcg PO DAILYBB 10/10/19 12/18/24 History meclizine 25 mg tablet 25 mg PO QID PRN dizziness #14 tabs 10/10/19 12/18/24 Rx famotidine 20 mg tablet 20 mg PO BID #20 tabs 07/22/22 12/18/24 Rx fluticasone propionate 50 1 spray intranasal DAILY 12/18/24 12/18/24 History mcg/actuation nasal spray,suspension hydrochlorothiazide 25 mg tablet 12.5 mg PO DAILY 12/18/24 12/18/24 History ketoconazole 2 % topical cream 1 applic topical BID 12/18/24 12/18/24 History multivitamin 1 tab PO DAILY 12/18/24 12/18/24 History omeprazole 40 mg capsule,delayed 40 mg PO DAILYBB 12/18/24 12/18/24 History release rosuvastatin 40 mg tablet 40 mg PO DAILY 12/18/24 12/18/24 History triamcinolone acetonide 0.1 % 1 applic topical BID PRN RASH ON 12/18/24 12/18/24 History topical cream LEGS Past Med/Surg History Problem List Chest pain (Acute) Heart disease (Chronic) Abdominal mass (Acute) Chest pain Left inguinal hernia (Acute) Pancreatitis (Acute) Encounter for pre-operative examination History of hernia repair RIGHT INGUINAL HERNIA REPAIR= 09/05/18= LMA#5 AT [facility] Medical History (Updated 12/19/24 @ 01:15 by Manda Flanagan MD) B-cell lymphoma T-cell lymphoma Ischemic heart disease Obesity CAD (coronary artery disease) STENT X 1 (2008) Hyperlipidemia Hypertension Asthma Diverticular disease Hypothyroidism Cancer LYMPHOMA (REASON FOR PROCEDURE); S/P R-CHOP 2014 Stroke 2004 S/P TPA= ?MILD LEFT SIDED RESIDUAL WEAKNESS Transient ischemic attack (TIA) Surgical History History of lymph node biopsy RIGHT INGUINAL AND RIGHT UPPER ARM EXCISIONAL LYMPH NODE BIOPSY (08/2018) Hx laparoscopic cholecystectomy History of colonoscopy History of tooth extraction History of vascular access device PORT FOR CHEMO REMOVED IN 2016 History of cardiac cath STENT X 1 (2008) Family History Other Cancer Gallbladder disease Heart disease Hypertension Social History Smoking Status: Former smoker Do You Dip or Chew Tobacco: Yes; Hx Alcohol Use: No Hx Substance Use: No Preferred Language: Kazakh Communication Ability: Effective Visual Impairment: No Limitations Talent Sourcer Required: No Beliefs That Will Affect Care: None Current Living Situation: Spouse Other Information That Helps Us Care for You: No Feels Safe at Home: Yes Safety Concerns: Feels Safe At This Time Review of Systems Review of Systems: All systems reviewed & are unremarkable except as noted in HPI & below Physical Exam Physical Exam: General- Not in distress Head- atraumatic Eyes- PERRL. ENT- oropharynx clear Neck- supple, no JVD. Lungs- clear to auscultation no wheezing or crackles Heart- regular rate and rhythm; no murmur, no gallop. Abdomen- normal bowel sounds, soft, nontender, no distension Extremities- no pretibial edema, no erythema seen Neuro- alert, oriented PERRL, no facial palsy; no dysarthria; moves extremities Results & Data Results & Data Vital Signs (Past 12 Hours) Vital Signs Temp Pulse Resp BP Pulse Ox O2 Del Method 12/19/24 01:16 65 12/18/24 22:00 67 13 119/89 12/18/24 21:39 80 20 116/73 96 12/18/24 21:23 80 12/18/24 21:03 36.5 C 93 H 21 108/62 97 Room Air Diagnostic Findings Laboratory Results WBC 6.79 K/ul (4.8-10.8) 12/18/24 21:34 RBC 4.58 M/uL (4.70-6.10) L 12/18/24 21:34 Hgb 13.5 g/dl (14.0-18.0) L 12/18/24 21:34 Hct 39.8 % (42.0-52.0) L 12/18/24 21:34 MCV 86.9 fL (80.0-100.0) 12/18/24 21:34 MCH 29.5 pg (25.0-34.0) 12/18/24 21:34 MCHC 33.9 g/dL (32.0-36.0) 12/18/24 21:34 RDW Std Deviation 39.4 fL (36.4-46.3) 12/18/24 21:34 RDW Coeff of Aleida 12.4 % (11.5-14.5) 12/18/24 21:34 Plt Count 128 K/uL (130-400) L 12/18/24 21:34 MPV 10.3 fL (9.4-12.4) 12/18/24 21:34 Immature Gran % (Auto) 0.6 % 12/18/24 21:34 Neut % (Auto) 60.0 % 12/18/24 21:34 Lymph % (Auto) 27.0 % 12/18/24 21:34 [place] % (Auto) 10.2 % 12/18/24 21:34 Eos % (Auto) 1.5 % 12/18/24 21:34 Baso % (Auto) 0.7 % 12/18/24 21:34 Neut # (Auto) 4.08 K/uL (1.40-6.50) 12/18/24 21:34 Lymph # (Auto) 1.83 K/uL (1.20-3.40) 12/18/24 21:34 [place] # (Auto) 0.69 K/uL (0.11-0.59) H 12/18/24 21:34 Eos # (Auto) 0.10 K/uL (0.00-0.50) 12/18/24:34 Baso # (Auto) 0.05 K/uL (0.00-0.20) 12/18/24 21: Immature Gran # (Auto) 0.04 K/uL (0.01-0.20) 12/18/24 21:34 PT 10.4 Seconds (9.0-12.0) 12/18/24 21:34 INR 1.0 (0.9-1.1) 12/18/24 21:34 D-Dimer 670 ug/L FEU (0-500) H* 12/18/24 21:34 Sodium 140 mmol/L (136-145) 12/18/24 21:34 Potassium 4.0 mmol/L (3.5-5.1) 12/18/24 21:34 Chloride 107 mmol/L (98-107) 12/18/24 21:34 Carbon Dioxide 26 mmol/L (21-32) 12/18/24 21:34 Anion Gap 7 (3-11) 12/18/24 21:34 BUN 29 mg/dl (6-23) H 12/18/24 21:34 Creatinine 1.28 mg/dl (0.6-1.4) 12/18/24 21:34 Est Cr Clr Drug Dosing 62.2 ml/min 12/18/24 21:34 eGFR 61.34 12/18/24 21:34 BUN/Creatinine Ratio 22.7 (10-20) H 12/18/24 21:34 Glucose 100 mg/dl (70-99(Fasting)) H 12/18/24 21:34 Calcium 9.1 mg/dl (8.6-10.3) 12/18/24 21:34 Total Bilirubin 0.3 mg/dl (0.2-1.0) 12/18/24 21:34 AST 20 U/L (13-39) 12/18/24 21:34 ALT 23 U/L (7-52) 12/18/24 21:34 Alkaline Phosphatase 56 U/L (34-104) 12/18/24 21:34 Troponin I High Sens 7.6 pg/ml (0-20) 12/18/24 23:41 Total Protein 6.2 gm/dl (6.0-8.3) 12/18/24 21:34 Albumin 4.3 gm/dl (3.4-5.0) 12/18/24 21:34 Globulin 1.9 gm/dl (2.5-4.0) L 12/18/24 21:34 Albumin/Globulin Ratio 2.3 (0.9-2) H 12/18/24 21:34 Lipase 34 U/L (11-82) 12/18/24 21:34 Impressions Chest X-Ray 12/18/24 21:22 Exam(s): XR CXR 1 VIEW EXAM: XR Chest, 1 View CLINICAL HISTORY: Chest pain, nonspecific. TECHNIQUE: Frontal view of the chest. COMPARISON: No relevant prior studies available. FINDINGS: Lungs: Shallow inspiration. No focal consolidation. The pulmonary vasculature demonstrates no significant radiographic abnormality. Pleural space: Unremarkable. No pneumothorax. No large pleural effusion. Heart: The cardiac silhouette is within normal limits, accounting for portable technique. Mediastinum: No significant abnormality identified. The trachea is midline. Bones/joints: Unremarkable. No acute fracture. IMPRESSION: Poor inspiratory effort without definite focal consolidation or acute cardiopulmonary process identified. Electronically signed by: Arya Paige MD 12/18/24 23:24 PM Chest CTA 12/18/24 22:02 Exam(s): CTA CHEST IV Amt: 118 ML OPTIRAY 320 EXAM: CT Angiography Chest With Intravenous Contrast CLINICAL HISTORY: Evaluate for potential PE. TECHNIQUE: Axial computed tomographic angiography images of the chest with intravenous contrast. CTDI is 47.4 mGy and DLP is 808.51 mGy-cm. Automated exposure control was utilized for the study. A dose lowering technique was utilized adhering to the principles of ALARA. MIP reconstructed images were created and reviewed. COMPARISON: No relevant prior studies available. FINDINGS: Limitations: There is respiratory artifact, which degrades image quality on multiple image slices. Pulmonary arteries: Accounting for limitations with respiratory artifact, there is no evidence for pulmonary embolism. Several distal subsegmental pulmonary artery segments are of limited diagnostic quality. Aorta: No acute findings. Motion artifact in the ascending thoracic aorta. No thoracic aortic dissection is identified. No thoracic aortic aneurysm. Lungs: Expiratory lung volumes with subsegmental areas of dependent increased attenuation. No definite focal airspace consolidation. Pleural space: Unremarkable. No significant effusion. No pneumothorax. Heart: Cardiomegaly. Prominent coronary artery calcification involving the LAD and circumflex arteries in the distal RCA. Bones/joints: The thoracic vertebral bodies are intact without acute traumatic injury. Multilevel degenerative changes noted. No dislocation. Soft tissues: Unremarkable. Lymph nodes: Unremarkable. No enlarged lymph nodes. IMPRESSION: 1. Accounting for limitations with respiratory artifact, there is no evidence for pulmonary embolism. Several distal subsegmental pulmonary artery segments are of limited diagnostic quality. 2. Expiratory lung volumes with subsegmental presumed atelectatic areas of dependent increased attenuation. No definite focal airspace consolidation. No pleural effusion or pneumothorax. Electronically signed by: Arya Paige MD 12/18/24 23:21 PM ECG Additional Comments: ECG normal sinus rhythm rate of 81. No acute ST changes seen. Code Status & VTE Plan VTE Prophylaxis Plan VTE Prophylaxis will be ordered: Yes
[2024-12-19] MEDS ORDERED: POLYETHYLENE (MIRALAX) 17 GM PACK PO PRN (03:32)
[2024-12-19] MEDS ORDERED: NITROGLYCERIN SL 0.4 MG/TAB TAB SL PRN (03:32)
[2024-12-19] MEDS ORDERED: ACETAMINOPHEN 325 MG TAB PO PRN (03:32)
[2024-12-19] MEDS: LEVOTHYROXINE SODIUM 100 MCG TABLET PO SCH (06:14)
[2024-12-19] MEDS: PANTOprazole 40 MG TAB PO SCH (06:14)
[2024-12-19 07:22] LABS: Basophils # (auto) 0.05 K/uL (0.00-0.20); Basophils % (auto) 0.7 %; Eosinophils # (auto) 0.11 K/uL (0.00-0.50); Eosinophils % (auto) 1.6 %; Hematocrit (blood only) 39.4 % (42.0-52.0); Immature Granulocytes # (auto) 0.03 K/uL (0.01-0.20); Immature Granulocytes % (auto) 0.4 %; Lymphocytes # (auto) 1.54 K/uL (1.20-3.40); Lymphocytes % (auto) 23.1 %; Mean Corpuscular Hemoglobin 28.8 pg (25.0-34.0); Mean Corpuscular Volume 87.4 fL (80.0-100.0); Mean Platelet Volume 10.5 fL (9.4-12.4); Monocytes # (auto) 0.73 K/uL (0.11-0.59); Monocytes % (auto) 10.9 %; Neutrophils # (auto) 4.22 K/uL (1.40-6.50); Neutrophils % (auto) 63.3 %; Platelet Count 116 K/uL (130-400); RDW Coefficient of Variation 12.5 % (11.5-14.5); RDW Standard Deviation 39.8 fL (36.4-46.3); Red Blood Count 4.51 M/uL (4.70-6.10); White Blood Count 6.68 K/ul (4.8-10.8)
[2024-12-19 07:38] LABS: Calcium 9.4 mg/dl (8.6-10.3); Creatinine Clr Calc Pharmacy 70.1 ml/min; Potassium 4.4 mmol/L (3.5-5.1)
[2024-12-19 08:14] VITALS: RESP 18; TEMP 97.5
[2024-12-19] MEDS: MECLIZINE HCL 25 MG TAB PO PRN (08:46)
[2024-12-19] MEDS: ASPIRIN 81 MG ECTAB PO SCH (08:46)
[2024-12-19] MEDS: KETOCONAZOLE 2% CR 15 GM TUBE EXT SCH (08:46)
[2024-12-19] MEDS: ROSUVASTATIN CALCIUM 20 MG TAB PO SCH (08:46)
[2024-12-19] MEDS: lisinopril 40 MG TAB PO SCH (08:47)
[2024-12-19] MEDS: MULTIVITAMIN TAB PO SCH (08:47)
[2024-12-19] MEDS: FLUTICASONE PROPIONATE NA SPR 16 GM BTL SCH (08:47)
[2024-12-19] MEDS: amLODIPine BESYLATE 5 MG TAB PO SCH (08:47)
[2024-12-19] MEDS: hydroCHLOROthiazide 25 MG TAB PO SCH (08:48)
[2024-12-19] MEDS: FAMOTIDINE 20 MG TAB PO SCH (08:52)
[2024-12-19 08:57] LABS: Estimated Average Glucose 120 mg/dl; Hemoglobin A1C 5.8 % (4.5-5.6)
[2024-12-19 09:11] LABS: Thyroid Stimulating Hormone 4.745 uIu/ml (0.300-4.500)
[2024-12-19 09:46] LABS: T4 Free Thyroxine 0.94 ng/dl (0.61-1.60)
[2024-12-19 11:11] VITALS: BP 106/55; PULSE 56; O2SAT 96
--- NOTE | 2024-12-19 11:59 | Discharge Summary ---
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 Patient states around 6:30 PM he was watching TV when noticed pain in the left lower chest with some radiation. It was not getting better so came to the ER.Pain is more when taking deep breath. In the ER he received fentanyl and morphine. Currently pain is mild. Denies any shortness of breath. No sweating. No nausea. He gets some dizziness while he stands up. No runny nose or sore throat. No cough. No fevers. Appetite is okay. No nausea. No abdominal pain. Normal bowel and bladder movements. Prior to this episode he was ambulating okay without any symptoms. Currently resting comfortably and hemodynamically stable. Chest pain -D-dimer age adjusted normal but borderline, CT chest reassuring -per patient chest pain resolving, feels more like rib pain -echo, trops very reassuring History of CAD Status post stent -On aspirin and statin -History of beta-pj intolerance Hx of CVA on aspirin and statin Hypertension -On lisinopril and amlodipine and hydrochlorothiazide - will monitor Hyperlipidemia -On statin GERD -On famotidine and omeprazole Hypothyroidism -On Synthyroid History of diffuse large B cell lymphoma in 2014 Status post R-CHOP chemotherapy History of angioimmunoblastic T-cell lymphoma Status post ESHAP chemotherapy with complete remission and status post stem cell transplant in 2019 -Follows with heme-onc Notes For Next Care Provider 69-year-old male with past medical history significant for hypothyroidism, history of hypomagnesia, hypokalemia, dyslipidemia, mild intermittent asthma, history of CAD status post stent, hypertension, GERD, history of diffuse large B-cell lymphoma, 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 CT chest unrevealing, chest pain improved. Echo unremarkable, troponins reassuing. Per patient feels more rib relate pain at this time. On 12/19/2024 patient medically stable for discharge home. 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 Patient states around 6:30 PM he was watching TV when noticed pain in the left lower chest with some radiation. It was not getting better so came to the ER.Pain is more when taking deep breath. In the ER he received fentanyl and morphine. Currently pain is mild. Denies any shortness of breath. No sweating. No nausea. He gets some d izziness while he stands up. No runny nose or sore throat. No cough. No fevers. Appetite is okay. No nausea. No abdominal pain. Normal bowel and bladder movements. Prior to this episode he was ambulating okay without any symptoms. Currently resting comfortably and hemodynamically stable. Past medical history. As mentioned above Past surgical history. Left heart catheterization. Colonoscopy with biopsy. EGD. EGD with endoscopic ultrasound. Lumbosacral injection. Laparoscopic cholecystectomy. Laparoscopic repair of bilateral inguinal hernia. Social history. . Snuff tobacco. No alcohol use. No drug use. Family history. Father had cancer. Heart disorder. Discharge Exam Gen: A&O 3 NAD HEENT: NCAT, EOMI, not icteric. External ears normal. No rhinorrhea. Moist mucous membranes. Neck: Supple, full range of motion, no observable masses, No meningeal sign. Lungs: No Respiratory distress. CV: RRR, no edema. Abdomen: Soft, nondistended, No rebound tenderness. MSK: No joint swelling, no redness. Skin: No rashes, petechiae, lesions. Normal color per patient. Neuro: Normal Gait, Grossly intact. Psych: Appropriate for situation. Updated Medication List Medication Instructions Recorded Confirmed Type lisinopril 40 mg tablet 40 mg PO DAILY ##0 06/24/11 12/18/24 History nitroglycerin 0.4 mg sublingual 1 tab sublingual DIRECTED PRN 06/24/11 12/18/24 History tablet (Nitrostat) Chest Pain ##0 amlodipine 5 mg tablet 5 mg PO DAILY ##0 05/14/15 12/18/24 History aspirin 81 mg tablet,delayed 81 mg PO DAILY 10/10/19 12/18/24 History release levothyroxine 100 mcg tablet 100 mcg PO DAILYBB 10/10/19 12/18/24 History meclizine 25 mg tablet 25 mg PO QID PRN dizziness #14 tabs 10/10/19 12/18/24 Rx famotidine 20 mg tablet 20 mg PO BID #20 tabs 07/22/22 12/18/24 Rx fluticasone propionate 50 1 spray intranasal DAILY 12/18/24 12/18/24 History mcg/actuation nasal spray,suspension hydrochlorothiazide 25 mg tablet 12.5 mg PO DAILY 12/18/24 12/18/24 History ketoconazole 2 % topical cream 1 applic topical BID 12/18/24 12/18/24 History multivitamin 1 tab PO DAILY 12/18/24 12/18/24 History omeprazole 40 mg capsule,delayed 40 mg PO DAILYBB 12/18/24 12/18/24 History release rosuvastatin 40 mg tablet 40 mg PO DAILY 12/18/24 12/18/24 History triamcinolone acetonide 0.1 % 1 applic topical BID PRN RASH ON 12/18/24 12/18/24 History topical cream LEGS diclofenac sodium 1 % topical gel 2 g topical QID rib pain #100 grams 12/19/24 Rx (Voltaren Arthritis Pain) Hospital Stay Data Diagnostic Imagining Performed 12/18/24 22:02 CT for pulmonary embolism PE [CT angio chest PE protocol] Stat Pending Results Patient Have Any Pending Studies at Discharge: No Discharge Instructions Given to Patient (Per Discharging Provider) 1. Please follow up with PCP and cardiology. 2. Please use voltaren cream for pain. Total Time Total Time Spent Total Time Spent (In Minutes): I spent a total of 35 minutes in direct patient care, including [id number] time with the patient and/or family, reviewing medical records, ordering and reviewing diagnostic tests, and coordinating care with other healthcare providers. This time includes: history taking, physical examination, medical decision making, counseling, ECG interpretation, imaging interpretation, lab interpretation, orders, and education, excluding time spent in the performance of separately billed services.
--- NOTE | 2024-12-19 12:46 | Electrocardiogram Report ---
Test Reason : Blood Pressure : */* mmHG Vent. Rate : 81 BPM Atrial Rate : 81 BPM P-R Int : 192 ms QRS Dur : 84 ms QT Int : 374 ms P-R-T Axes : 39 -6 14 degrees QTcB Int : 434 ms Normal sinus rhythm Cannot rule out Anterior infarct (cited on or before 22-Jul-2022) Abnormal ECG When compared with ECG of 22-Jul-2022 16:54, No significant change was found Confirmed by Shubham Garcia ([id number]) on 12/19/2024 12:46:27 PM Referred By: REFERRED SELF Confirmed By: Shubham Garcia
== END 2024-12-19 12:15 | disposition home or self-care (01) ==
LOC: 4W 21:01 → ED 21:01 → 4W 12-19 02:35